=== PATIENT | male | born 1960 | race Caucasian/White ===

== ENCOUNTER 2020-01-20 06:41 | Outpatient (CLI) | payer BC, SELFPAY ==
--- NOTE | ~2020-01-20 | CT_ITS ---
EXAMINATION: CT abdomen pelvis w con DATE: 01/20/2020 07:26 INDICATION: Malignant colon neoplasm TECHNIQUE: Computed tomography (CT) of the abdomen and pelvis was performed with 100 cc Omnipaque 350 intravenous contrast. Automated exposure control and iterative reconstruction technique were employe d. Exam dose: 566.39 mGy-cm total exam DLP. COMPARISON: 02/25/2019 CT abdomen pelvis FINDINGS: The lung bases are clear. Normal heart size. No pericardial or pleural effusion. Small sliding hiatal hernia. No hepatic, splenic, pancreatic space-occupying mass lesion. There is a calcification of the pancreat ic head suggesting mild chronic pancreatitis. The gallbladder is present. No bile duct or pancreatic duct dilatation. Normal adrenal glands. 12 mm posterior lower pole right renal cyst. No renal mass lesion or any urinary tract calculus or hy droureteronephrosis. The urinary bladder is unremarkable. Normal appendix. Mild left colonic diverticulosis; no CT evidence of diverticulitis. No bowel obstruc tion or intraperitoneal free air. Prominent degenerative disease at L4-5. Included skeletal structures are otherwise unremarkable. IMPRESSION: Small hiatal hernia Mild diverticulosis of the colon Left renal 12 mm cyst Reviewed, dictated and finalized at [facility]. Reviewed, dictated and finalized at location A.
[2020-01-20 07:15] LABS: Estimated Glomerular Filt Rate > 60
== END 2020-01-20 06:42 | disposition home or self-care (01) ==
PROVIDERS: PCP Family Medicine Adolescent Medicine; Visit Provider Internal Medicine Hematology & Oncology
DX: C18.9 Malignant neoplasm of colon, unspecified (principal); K44.9 Diaphragmatic hernia without obstruction or gangrene; K57.90 Diverticulosis of intestine, part unspecified, without perforation or abscess without bleeding; N28.1 Cyst of kidney, acquired
CPT/HCPCS: 36415; 74177; Q9967

== ENCOUNTER 2020-01-20 08:09 | Outpatient (CLI) | payer BC, SELFPAY ==
[2020-01-20 08:31] LABS: Basophils Percent Auto 0.6 % (0.2-1.2); Eosinophils Absolute Auto 0.2 K/mm3 (0-0.3); Eosinophils Percent Auto 4.7 % (0-4.4); Hematocrit 45.8 % (42.0-52.0); Hemoglobin 15.3 g/dL (14.0-18.0); Immature Granulocyte Absolute 0.01 K/mm3 (0.00-0.031); Immature Granulocyte Percent A 0.2 % (0-0.5); Lymphocytes Absolute Auto 1.33 K/mm3 (0.9-3.2); Lymphocytes Percent Auto 26.1 % (18.3-44.2); Mean Corpuscular HGB Conc 33.4 g/dl (32-36); Mean Corpuscular Hemoglobin 30.3 pg (26-34); Mean Corpuscular Volume 90.7 fl (80-100); Mean Platelet Volume 9.1 fl (7.4-10.4); Monocytes Absolute Auto 0.6 K/mm3 (0.1-0.6); Monocytes Percent Auto 11.2 % (2.6-8.5); Neutrophils Absolute Auto 2.9 K/mm3 (1.3-6.7); Neutrophils Percent Auto 57.2 % (45.5-73.1); Platelet Count Result 167 k/mm3 (150-375); Red Blood Count 5.05 M/mm3 (4.6-6.20); Red Cell Distribution Width 12.2 % (11.5-14.5); White Blood Count 5.1 K/mm3 (4.5-10.0)
[2020-01-20 09:02] LABS: Alanine Aminotransferase 22 U/L (4-50); Albumin Level 4.3 g/dL (3.5-5.1); Alkaline Phosphatase 70 U/L (38-126); Aspartate Amino Transferase 26 U/L (17-59); Bilirubin,Total 0.6 mg/dL (0.2-1.3); Blood Urea Nitrogen 17 mg/dL (9-20); Calcium 9.1 mg/dL (8.4-10.2); Carbon Dioxide 27 mmol/L (22-30); Chloride 102 mmol/L (98-107); Estimated Glomerular Filt Rate > 60; Glucose 126 mg/dL (75-110); Potassium 4.6 mmol/L (3.4-5.0); Sodium 139 mmol/L (137-145)
[2020-01-20 09:31] LABS: Carcinoembryonic Antigen 3.3 ng/mL (0.0-3.0)
== END 2020-01-20 08:10 | disposition home or self-care (01) ==
LOC: ANHLAB 08:20
PROVIDERS: PCP Family Medicine Adolescent Medicine; Visit Provider Internal Medicine Hematology & Oncology
DX: C18.9 Malignant neoplasm of colon, unspecified (principal)
CPT/HCPCS: 36415; 80053; 82378; 85025

== ENCOUNTER 2020-07-26 13:48 | Outpatient (CLI) | payer BC, SELFPAY ==
[2020-07-26 14:11] LABS: Basophils Percent Auto 0.4 % (0.2-1.2); Eosinophils Absolute Auto 0.2 K/mm3 (0-0.3); Eosinophils Percent Auto 4.3 % (0-4.4); Hematocrit 42.8 % (42.0-52.0); Hemoglobin 14.6 g/dL (14.0-18.0); Immature Granulocyte Absolute 0.01 K/mm3 (0.00-0.031); Immature Granulocyte Percent A 0.2 % (0-0.5); Lymphocytes Percent Auto 28.7 % (18.3-44.2); Mean Corpuscular HGB Conc 34.1 g/dl (32-36); Mean Corpuscular Hemoglobin 30.4 pg (26-34); Mean Corpuscular Volume 89.2 fl (80-100); Mean Platelet Volume 9.1 fl (7.4-10.4); Monocytes Absolute Auto 0.5 K/mm3 (0.1-0.6); Monocytes Percent Auto 9.2 % (2.6-8.5); Neutrophils Absolute Auto 2.8 K/mm3 (1.3-6.7); Neutrophils Percent Auto 57.2 % (45.5-73.1); Platelet Count Result 180 k/mm3 (150-375); Red Cell Distribution Width 12.6 % (11.5-14.5); White Blood Count 4.9 K/mm3 (4.5-10.0)
[2020-07-26 16:38] LABS: Alanine Aminotransferase 21 U/L (4-50); Albumin Level 4.3 g/dL (3.5-5.1); Alkaline Phosphatase 64 U/L (38-126); Anion Gap 6 mmol/L (8-16); Aspartate Amino Transferase 30 U/L (17-59); Bilirubin,Total 0.6 mg/dL (0.2-1.3); Blood Urea Nitrogen 20 mg/dL (9-20); Calcium 9.4 mg/dL (8.4-10.2); Carbon Dioxide 30 mmol/L (22-30); Chloride 101 mmol/L (98-107); Estimated Glomerular Filt Rate > 60; Glucose 124 mg/dL (75-110); Potassium 3.9 mmol/L (3.4-5.0); Sodium 137 mmol/L (137-145)
[2020-07-26 17:08] LABS: Carcinoembryonic Antigen 3.6 ng/mL (0.0-3.0)
== END 2020-07-26 13:49 | disposition home or self-care (01) ==
PROVIDERS: PCP Family Medicine Adolescent Medicine; Visit Provider Internal Medicine Hematology & Oncology
DX: C18.9 Malignant neoplasm of colon, unspecified (principal)
CPT/HCPCS: 36415; 80053; 82378; 85025

== ENCOUNTER → 2021-01-13 01:17 | Outpatient (CLI) | payer BC, SELFPAY ==
[2021-01-13 19:47] LABS: SARS-CoV-2 RNA PCR Negative
== END ==
PROVIDERS: PCP Family Medicine Adolescent Medicine; Visit Provider Internal Medicine Cardiovascular Disease
DX: Z01.812 Encounter for preprocedural laboratory examination (principal); Z20.822 Contact with and (suspected) exposure to COVID-19
CPT/HCPCS: C9803; U0003; U0005

== ENCOUNTER 2021-01-17 02:11 | Day surgery (SDC) | payer BC, SELFPAY ==
[2021-01-16 13:18] VITALS: BMI 27.1
[2021-01-17 10:25] VITALS: BP 145/85; PULSE 59; RESP 22; TEMP 36.2; O2SAT 97
--- NOTE | 2021-01-17 11:01 | P.SEDATION_ITS ---
Moderate Sedation Note-Pt Data Patient Data Diagnosis: history of syncope which clinically is consistent with vasovagal events Present Complaint: patient desirous of explanting loop recorder which was implanted 4 years ago and now the battery has been depleted. Procedure to be performed/Plan: Removal of [employer] LINQ loop recorder Allergies Allergy/AdvReac Type Severity Reaction Status Date / Time No Known Allergies Allergy Unverified 10/21/18 14:56 Home Medications Medication Instructions Recorded Confirmed Type losartan 50 mg PO DAILY 01/16/21 01/16/21 History metformin 2,000 mg PO DAILY 01/16/21 01/16/21 History pravastatin 20 mg PO DAILY 01/16/21 01/16/21 History Current Medications: Active Medications Sodium Chloride (Normal Saline Iv) 500 mls @ 100 mls/hr IV CONT .Q5H [facility] Sedation/Anesthesia: No previous sedation/anesthesia problems (including family history). [facility] Family History Family History (Updated 05/14/17 @ 10:12 by DOCTOR UNKNOWN) Other Diabetes mellitus Family history of malignant neoplasm Hypertension Social History Social History Smoking status: Never smoker Alcohol intake: current Substance use: never Substance use type: does not use Living arrangements: with family Spiritual care concerns: No Mod Sed Physical Exam Physical Exam Pre Procedural Exam: Normal: Appearance, Throat, Airway, Lungs, Heart Size, Heart Rate, Heart Rhythm, Neuro Exam and Extremities Hours since solid foods: 12 Hours since liquid intake: 12 Internal Medicine - PN: Obj Da Vital Signs Vital Signs: Vital Signs - 24 hr 01/17/21 10:25 Temperature 36.2 C L Pulse Rate 59 L Respiratory Rate 22 H Blood Pressure 145/85 H Pulse Oximetry 97 Meds/Results Medications: Active Medications Generic Name Dose Route Start Last Admin Trade Name Freq PRN Reason Stop Dose Admin Sodium Chloride 500 mls @ 100 mls/hr 01/17/21 10:00 Normal Saline Iv IV CONT .Q5H [facility] ASA Classification/Sedation ASA Classification/Sedation ASA Class: II Emergent: No Risks: Risks, benefits and alternatives explained and patient/family accepted plan for sedation. Patient re-evaluated immediately prior to sedation.
--- NOTE | 2021-01-17 11:35 | P.PCNCC_ITS ---
Cardiac Cath Procedure Note Date of procedure:: 01/17/21 Performing physician:: Pino Alves MD Indication:: previously implanted Med[employer] LINQ loop recorder with battery depletion. Brief clinical history:: 60-year-old man with previous history of syncope LINQ loop recorder implanted in 2017 now with battery depletion and patient desiring device to be removed Procedure Procedure performed:: explantation of LINQ loop recorder Sedation/Medication given:: no sedation Access site:: previously implanted site in left anterior chest wall Estimated blood loss:: minimal Procedure note:: patient was brought to the cardiac catheterization lab in the postabsorptive state. The loop recorder was palpable subcutaneously medial to the left nipple. The area was then infiltrated with 1% lidocaine infiltrated locally. The medial aspect of the device was opened with a short 1 cm incision. The device was then freed from the surrounding fibrous capsule using a Metzenbaum scissors and the medial aspect of the device was then controlled with a hemostat. The device was then freed up from the remaining pocket using the scissors and easily removed from the pocket. Pocket was then irrigated with Ancef infused saline. After this the pocket was closed using 3 0 Vicryl interrupted sutures for the subcutaneous tissue and 4 0 Vicryl in a subcuticular fashion. The was dressed with a bio glue and a Band-Aid. Findings:: Successful uneventful explantation of previously implanted Medtro reynaldo LINQ loop recorder where the battery has now been exhausted. Conclusion:: As above Pino Alves MD [facility]
[2021-01-17 11:58] VITALS: BP 118/89; PULSE 61; RESP 18; TEMP 36.7; O2SAT 99
== END 2021-01-17 12:20 | disposition home or self-care (01) ==
PROVIDERS: PCP Family Medicine Adolescent Medicine; Visit Provider Specialist
PROC: (CPT 33286; principal; 2021-01-17 11:00)
DX: Z45.09 Encounter for adjustment and management of other cardiac device (principal); R55 Syncope and collapse
CPT/HCPCS: 33286; J0690; J2250; J3010; J7040

== ENCOUNTER 2021-01-24 08:27 | Outpatient (CLI) | payer BC, SELFPAY ==
--- NOTE | ~2021-01-24 | CT_ITS ---
EXAMINATION: CT abdomen pelvis w con EXAM DATE: 01/24/2021 08:57 INDICATION: Colon cancer follow-up. TECHNIQUE: Spiral CT of the abdomen and pelvis was performed following intravenous injection of 100 m L Omnipaque 350. Axial, coronal and sagittal images were reviewed. The dose-length product (DLP) fo r this examination was 582.20 mGy-cm. The exposure was tailored according to patient size (auto mA e xposure control), and iterative reconstruction (ASIR) was used as additional dose reduction technique . Comparison is made to prior examination from 01/20/2020. FINDINGS: Probable 8 mm right adrenal gland adenoma versus hyperplasia. The liver, spleen, adrenal g lands and pancreas are otherwise unremarkable. Gallbladder is unremarkable. No biliary obstruction. Portal and splenic veins are patent. Kidneys enhance symmetrically. There is no hydronephrosis. The prostate is unremarkable. Possible left-sided orchiectomy. The bladder is unremarkable. There is no retroperitoneal or pelvic lymphadenopathy. The appendix is normal. There is moderate sigmoid predominant colonic diverticulosis. There is no ad jacent inflammatory change to suggest diverticulitis. There is small sliding gastroesophageal hiatal hernia. There is expected amount of colonic stool. No free intraperitoneal gas. The heart is nor mal in size. There are no pericardial or pleural effusions. The lung bases are unremarkable. Moder ate disc disease L4-5. There are no osteoblastic or osteolytic lesions identified. IMPRESSION: 1. No evidence of metastatic disease. 2. Colonic diverticulosis. 3. Small hiatal hernia. Reviewed, dictated and finalized at location A.
[2021-01-24 08:51] LABS: Estimated Glomerular Filt Rate > 60
== END 2021-01-24 08:28 | disposition home or self-care (01) ==
PROVIDERS: PCP Family Medicine Adolescent Medicine; Visit Provider Internal Medicine Hematology & Oncology
DX: C18.9 Malignant neoplasm of colon, unspecified (principal); K57.30 Diverticulosis of large intestine without perforation or abscess without bleeding; K44.9 Diaphragmatic hernia without obstruction or gangrene
CPT/HCPCS: 74177; Q9967

== ENCOUNTER 2021-02-07 14:26 | Outpatient (CLI) | payer BC, SELFPAY ==
[2021-02-07 14:38] LABS: Basophils Percent Auto 0.4 % (0.2-1.2); Eosinophils Absolute Auto 0.2 K/mm3 (0-0.3); Eosinophils Percent Auto 4.6 % (0-4.4); Hematocrit 43.6 % (42.0-52.0); Hemoglobin 14.8 g/dL (14.0-18.0); Lymphocytes Absolute Auto 1.44 K/mm3 (0.9-3.2); Lymphocytes Percent Auto 31.6 % (18.3-44.2); Mean Corpuscular HGB Conc 33.9 g/dl (32-36); Mean Corpuscular Volume 88.4 fl (80-100); Mean Platelet Volume 9.2 fl (7.4-10.4); Monocytes Absolute Auto 0.5 K/mm3 (0.1-0.6); Monocytes Percent Auto 10.8 % (2.6-8.5); Neutrophils Absolute Auto 2.4 K/mm3 (1.3-6.7); Neutrophils Percent Auto 52.6 % (45.5-73.1); Platelet Count Result 185 k/mm3 (150-375); Red Blood Count 4.93 M/mm3 (4.6-6.20); Red Cell Distribution Width 12.2 % (11.5-14.5); White Blood Count 4.6 K/mm3 (4.5-10.0)
[2021-02-07 19:01] LABS: Alanine Aminotransferase 24 U/L (4-50); Albumin Level 4.4 g/dL (3.5-5.1); Alkaline Phosphatase 71 U/L (38-126); Anion Gap 7 mmol/L (8-16); Aspartate Amino Transferase 30 U/L (17-59); Bilirubin,Total 0.5 mg/dL (0.2-1.3); Blood Urea Nitrogen 19 mg/dL (9-20); Calcium 9.3 mg/dL (8.4-10.2); Carbon Dioxide 29 mmol/L (22-30); Chloride 103 mmol/L (98-107); Estimated Glomerular Filt Rate > 60; Glucose 128 mg/dL (75-110); Potassium 4.2 mmol/L (3.4-5.0); Sodium 139 mmol/L (137-145)
== END 2021-02-07 14:27 | disposition home or self-care (01) ==
LOC: ANHLAB 14:27
PROVIDERS: PCP Family Medicine Adolescent Medicine; Visit Provider Internal Medicine Hematology & Oncology
DX: C18.9 Malignant neoplasm of colon, unspecified (principal)
CPT/HCPCS: 36415; 80053; 82378; 85025

== ENCOUNTER 2021-11-15 15:02 | Outpatient (CLI) | payer BC, SELFPAY ==
[2021-11-15 15:30] LABS: Basophils Percent Auto 0.6 % (0.2-1.2); Eosinophils Absolute Auto 0.3 K/mm3 (0-0.3); Eosinophils Percent Auto 5.2 % (0-4.4); Hematocrit 48.1 % (42.0-52.0); Hemoglobin 16.1 g/dL (14.0-18.0); Lymphocytes Absolute Auto 1.53 K/mm3 (0.9-3.2); Lymphocytes Percent Auto 29.3 % (18.3-44.2); Mean Corpuscular HGB Conc 33.5 g/dl (32-36); Mean Corpuscular Hemoglobin 30.8 pg (26-34); Mean Platelet Volume 10.6 fl (7.4-10.4); Monocytes Absolute Auto 0.6 K/mm3 (0.1-0.6); Monocytes Percent Auto 10.9 % (2.6-8.5); Neutrophils Absolute Auto 2.8 K/mm3 (1.3-6.7); Red Blood Count 5.23 M/mm3 (4.6-6.20); Red Cell Distribution Width 12.5 % (11.5-14.5); White Blood Count 5.2 K/mm3 (4.5-10.0)
[2021-11-15 16:03] LABS: Alanine Aminotransferase 30 U/L (4-50); Albumin Level 4.7 g/dL (3.5-5.1); Alkaline Phosphatase 86 U/L (38-126); Anion Gap 12 mmol/L (8-16); Aspartate Amino Transferase 34 U/L (17-59); Bilirubin,Total 0.6 mg/dL (0.2-1.3); Blood Urea Nitrogen 17 mg/dL (9-20); Calcium 9.6 mg/dL (8.4-10.2); Carbon Dioxide 27 mmol/L (22-30); Chloride 100 mmol/L (98-107); Estimated Glomerular Filt Rate > 60; Glucose 122 mg/dL (65-110); Potassium 4.2 mmol/L (3.4-5.0); Sodium 139 mmol/L (137-145)
[2021-11-15 16:37] LABS: Carcinoembryonic Antigen 3.2 ng/mL (0.0-3.0)
[2021-11-20 21:11] LABS: HCG Tumor Marker <3 mIU/mL (<5)
[2021-11-22 17:47] LABS: Alpha Fetoprotein Tumor Marker 1.7 ng/mL (<6.1)
== END 2021-11-15 15:03 | disposition home or self-care (01) ==
PROVIDERS: PCP Family Medicine Adolescent Medicine; Visit Provider Internal Medicine Hematology & Oncology
DX: C18.9 Malignant neoplasm of colon, unspecified (principal); C62.90 Malignant neoplasm of unspecified testis, unspecified whether descended or undescended
CPT/HCPCS: 36415; 80053; 82105; 82378; 84702; 85025

== ENCOUNTER 2022-11-15 13:41 | Outpatient (CLI) | payer BC, SELFPAY ==
[2022-11-15 14:02] LABS: Basophils Percent Auto 0.2 % (0.2-1.2); Eosinophils Absolute Auto 0.2 K/mm3 (0-0.3); Eosinophils Percent Auto 2.9 % (0-4.4); Hematocrit 43.8 % (42.0-52.0); Hemoglobin 14.9 g/dL (14.0-18.0); Immature Granulocyte Absolute 0.02 K/mm3 (0.00-0.031); Immature Granulocyte Percent A 0.3 % (0-0.5); Lymphocytes Absolute Auto 1.44 K/mm3 (0.9-3.2); Mean Corpuscular Hemoglobin 30.8 pg (26-34); Mean Corpuscular Volume 90.7 fl (80-100); Mean Platelet Volume 9.2 fl (7.4-10.4); Monocytes Absolute Auto 0.7 K/mm3 (0.1-0.6); Monocytes Percent Auto 10.6 % (2.6-8.5); Neutrophils Absolute Auto 4.2 K/mm3 (1.3-6.7); Platelet Count Result 165 k/mm3 (150-375); Red Blood Count 4.83 M/mm3 (4.6-6.20); White Blood Count 6.5 K/mm3 (4.5-10.0)
[2022-11-15 16:10] LABS: Alanine Aminotransferase 31 U/L (6-50); Albumin Level 4.2 g/dL (3.5-5.1); Alkaline Phosphatase 76 U/L (38-126); Anion Gap 6 mmol/L (8-16); Aspartate Amino Transferase 24 U/L (17-59); Bilirubin,Total 0.5 mg/dL (0.2-1.3); Blood Urea Nitrogen 20 mg/dL (9-20); Calcium 8.9 mg/dL (8.4-10.2); Carbon Dioxide 31 mmol/L (22-30); Chloride 102 mmol/L (98-107); Estimated Glomerular Filt Rate > 60; Glucose 139 mg/dL (65-110); Potassium 4.2 mmol/L (3.4-5.0); Sodium 139 mmol/L (137-145)
[2022-11-15 16:40] LABS: Carcinoembryonic Antigen 3.3 ng/mL (0.0-3.0)
== END 2022-11-15 13:42 | disposition home or self-care (01) ==
LOC: ANHLAB 13:42
PROVIDERS: PCP Family Medicine Adolescent Medicine; Visit Provider Internal Medicine Hematology & Oncology
DX: C18.9 Malignant neoplasm of colon, unspecified (principal)
CPT/HCPCS: 36415; 80053; 82378; 85025

== ENCOUNTER 2023-11-12 11:00 | Outpatient (CLI) | payer BC, SELFPAY ==
[2023-11-12 11:22] LABS: Basophils Percent Auto 0.6 % (0.2-1.2); Eosinophils Absolute Auto 0.3 K/mm3 (0-0.3); Eosinophils Percent Auto 5.2 % (0-4.4); Hematocrit 44.7 % (42.0-52.0); Hemoglobin 15.1 g/dL (14.0-18.0); Immature Granulocyte Absolute 0.01 K/mm3 (0.00-0.031); Immature Granulocyte Percent A 0.2 % (0-0.5); Lymphocytes Absolute Auto 1.46 K/mm3 (0.9-3.2); Lymphocytes Percent Auto 29.3 % (18.3-44.2); Mean Corpuscular HGB Conc 33.8 g/dl (32-36); Mean Corpuscular Hemoglobin 30.5 pg (26-34); Mean Corpuscular Volume 90.3 fl (80-100); Mean Platelet Volume 8.8 fl (7.4-10.4); Monocytes Absolute Auto 0.5 K/mm3 (0.1-0.6); Neutrophils Absolute Auto 2.7 K/mm3 (1.3-6.7); Neutrophils Percent Auto 54.7 % (45.5-73.1); Platelet Count Result 176 k/mm3 (150-375); Red Blood Count 4.95 M/mm3 (4.6-6.20); Red Cell Distribution Width 12.3 % (11.5-14.5)
[2023-11-12 15:24] LABS: Alanine Aminotransferase 26 U/L (6-50); Albumin Level 4.2 g/dL (3.5-5.1); Alkaline Phosphatase 67 U/L (38-126); Anion Gap 8 mmol/L (8-16); Aspartate Amino Transferase 35 U/L (17-59); Bilirubin,Total 0.6 mg/dL (0.2-1.3); Blood Urea Nitrogen 22 mg/dL (9-20); Carbon Dioxide 28 mmol/L (22-30); Chloride 103 mmol/L (98-107); Estimated Glomerular Filt Rate > 60; Glucose 105 mg/dL (65-110); Potassium 4.5 mmol/L (3.4-5.0); Sodium 139 mmol/L (137-145)
[2023-11-12 15:55] LABS: Carcinoembryonic Antigen 3.7 ng/mL (0.0-3.0)
== END 2023-11-12 11:01 | disposition home or self-care (01) ==
PROVIDERS: PCP Family Medicine Adolescent Medicine; Visit Provider Internal Medicine Hematology & Oncology
DX: C18.9 Malignant neoplasm of colon, unspecified (principal)
CPT/HCPCS: 36415; 80053; 82378; 85025

== ENCOUNTER 2024-06-02 11:47 | Emergency (ER) | payer BC, SELFPAY ==
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
[2024-06-02 11:51] VITALS: BP 116/67; PULSE 64; RESP 16; TEMP 36.6; O2SAT 100
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
[2024-06-02] MEDS: TETANUS,DIPHTHERIA,AC PERTUSSIS ADULT (0.5 ML) BOOSTRIX IM (12:56)
--- NOTE | 2024-06-02 14:35 | PC.NURSE ---
EDP at bedside, reducing finger.
[2024-06-02 16:30] VITALS: BP 113/83; PULSE 74; RESP 19; O2SAT 97
== END 2024-06-02 16:31 | disposition home or self-care (01) ==
PROVIDERS: Emergency Provider Physician Assistant; PCP Family Medicine Adolescent Medicine
DX: S63.284A Dislocation of proximal interphalangeal joint of right ring finger, initial encounter (principal); S00.81XA Abrasion of other part of head, initial encounter; S62.626A Displaced fracture of middle phalanx of right little finger, initial encounter for closed fracture; Z23 Encounter for immunization; Z85.038 Personal history of other malignant neoplasm of large intestine; Z85.47 Personal history of malignant neoplasm of testis; Z90.49 Acquired absence of other specified parts of digestive tract; Z90.79 Acquired absence of other genital organ(s); M50.31 Other cervical disc degeneration, high cervical region; V18.0XXA Pedal cycle driver injured in noncollision transport accident in nontraffic accident, initial encounter; Y93.55 Activity, bike riding
CPT/HCPCS: 26770; 29130; 70450; 70486; 71046; 72125; 72170; 73130; 73200; 90471; 90715; 99285

== ENCOUNTER 2024-06-09 09:13 | Outpatient (CLI) | payer BC, SELFPAY ==
--- NOTE | ~2024-06-09 | XR_ITS ---
XR wrist RT min 3V Ordering provider: Mehreen Harris MD History: . S63.284A - Dislocation of proximal interphalangeal joint ... . Comparison: June 09, 2024 FINDINGS: BONES: No acute fracture or dislocation. No definite scaphoid fracture. JOINT SPACES: Normal. SOFT TISSUES: Normal. IMPRESSION: No acute osseous abnormality right wrist. Reviewed, dictated and finalized at location A.
--- NOTE | ~2024-06-09 | XR_ITS ---
XR hand RT min 3V Ordering provider: Mehreen Harris MD History: . re eval right 5th cmc dislocation,pain near the 5th carpal . Comparison: June 09, 2024 FINDINGS: BONES: No acute fracture or dislocation. JOINT SPACES: Normal. SOFT TISSUES: Normal. IMPRESSION: No acute osseous abnormality right hand. Reviewed, dictated and finalized at location A.
== END 2024-06-09 09:14 | disposition home or self-care (01) ==
PROVIDERS: PCP Family Medicine Adolescent Medicine; Visit Provider Plastic Surgery
DX: S63.284A Dislocation of proximal interphalangeal joint of right ring finger, initial encounter (principal); X58.XXXA Exposure to other specified factors, initial encounter
CPT/HCPCS: 73110; 73130

== ENCOUNTER 2024-06-10 01:56 | Day surgery (SDC) | payer BC, SELFPAY ==
[2024-06-09 14:28] VITALS: BMI 26.4
--- NOTE | 2024-06-09 14:29 | PC.NURSE ---
Report to the Outpatient Waiting Room, entrance under the green pavilion located off [facility], at time _1230_ on date _14-01-0638_. Planned Procedure Time: _230pm_. Time changes happen often and if your time is changed the preop area will call you the afternoon before. - You and your visitor will be asked to self-screen and do not enter if you have any COVID symptoms. - A mask is optional within the hospital at this time. May have clear liquids (water, carbonated beverages, clear teas, apple juice) until 630am with a maximum of 20 ounces. Nothing to drink after 630am. - No food from midnight until time of surgery Take the following medications with a SIP of water the morning of surgery: ____Pain pill if needed. DO NOT STOP ANY OF YOUR OTHER PRESCRIPTION MEDICATIONS PRIOR TO SURGERY ?EXCEPT THE FOLLOWING Medications to discontinue per physician ___None Date to take last dose Please no make-up, nail kyrgyz, hairspray, perfume, deodorant, or body powder the day of surgery. No jewelry (including any body piercings) or valuables the day of surgery, leave them at home. Please take a shower or bath the night before, or the morning of, surgery with an antibacterial soap. Wear comfortable, loose fitting clothing. - Jewelry must be removed prior to entering the operating room. Rings and piercings that are not removed may be cut off. - The hospital will not accept responsibility for valuables. - Please leave all valuables, including medications, at home the day of surgery. If you are going home after surgery, a licensed canal driver must drive you home. - NO public transportation without another adult if you receive anesthesia. - We recommend that an adult stay with you for 24 hours following discharge. - We also recommend that you do not drive, make important decision, drink alcoholic beverages, or take any drugs that were not prescribed by your health care provider for at least 24 hours after your discharge time. Follow any additional instructions given to you from your surgeon. If you or anyone in your household have experienced Covid symptoms in the past week, please notify your surgeon or the nurse liaison at the phone number below for possible testing. Telephone instructions given to __Ken___and asked if any additional questions and then verbalized understanding. Patient advised to call surgeon office or pre surgery nurse liaison [phone] if any additional questions.
--- NOTE | ~2024-06-10 | XR_ITS ---
EXAMINATION: XR surgery orthopedic DATE: 06/10/2024 13:53 INDICATION: ORIF right fifth metacarpal dislocation TECHNIQUE: 4 fluoroscopic images of the right hand were obtained during procedure performed by Dr. Ab castorena. Radiologist was not present for the imaging or procedure. The amount of fluoroscopy time us ed during this procedure was 0.5 minutes. COMPARISON: None. FINDINGS: Interval reduction of the previously dislocated right fifth carpometacarpal joint which is now in melida tomic alignment. Percutaneous pin fixation across the base of the fourth and fifth metacarpals. No in terval change in palmar distraction of a small volar plate avulsion fracture at the base of the fourt h middle phalanx. No new fractures identified. IMPRESSION: 1. Anatomic alignment post interval reduction and percutaneous pin fixation of the previously disloca tamie right fifth carpometacarpal joint. 2. Unchanged palmar distraction of a volar plate avulsion fracture at the base of the fourth middle p halanx. Reviewed, dictated and finalized at location A. IMPRESSION: 1. Anatomic alignment post interval reduction and percutaneous pin fixation of the previously dislocated right fifth carpometacarpal joint. 2. Unchanged palmar distraction of a volar plate avulsion fracture at the base of the fourth middle phalanx.
--- NOTE | 2024-06-10 07:06 | WPDHPUPDATE1 ---
History and Physical Update Update Date/Time: 06/10/24 07:06 Patient seen and examined in pre-operative holding area. No interval change in medical history or symptoms. Patient recalls previous discussion of benefits and alternatives to procedure. Continues to desire to proceed with right fifth carpometacarpal joint reduction possible pinning . Reviewed procedure, post-op expectations and risks including but not limited to bleeding, infection, injury to tendon/nerve/vessel, decreased hand function, stiffness, RSD, no change or worsening of symptoms malunion, nonunion, recurrence. I discussed the possible use of assistants and their participation in the case. Patient stated understanding and signed the consent form wishing to proceed.
--- NOTE | 2024-06-10 07:06 | W.PM.PROC2 ---
Procedure Note - Detailed Date of Procedure 06/10/24 Pre-op Diagnosis right 5th carpometacarpal dislocation Post-op Diagnosis Same Procedure Performed right 5th cmc reduction and pinning Surgeon Mehreen Harris MD Anesthesia MAC Description of Procedure INFORMED CONSENT: The patient was seen and examined and marked in the pre-op area.? The patient signed the consent form. PROCEDURE IN DETAIL:The patient taken back to OR on the stretcher in supine position. Time out performed with anesthesia, surgeon and staff agreeing on patient's name site and surgery to be performed SCDs were placed on the lower extremities and inflated. A tourniquet was placed on {right} upper extremity and antibiotics given IV After anesthesia administered sedation I injected {6}cc 1%lido with epi and 0.5% marcaine plain at the operative site The?{right upper extremity}?was prepped and draped in sterile fashion the??{right upper extremity} was? exsanguinated with Esmarch bandage and tourniquet inflated to 250mmHg The mini c-arm was draped and brought into the field. The dislocation was identified and closed reduction maneuvers were able to achieve reduction of the fifth cmc joint but this was notably unstable. I proceeded with placing two 0.045 k-wires into the 5th metacarpal base anchoring into the fourth metacarpal base. Live fluoro and multiple views verified k-wire placement and stability of the reduction. The pins were trimmed and covered with betadine soaked alcohol swab A dressing of 4x4s, brianna, and an ulnar gutter splint was applied for patient safety, security, and comfort and secured with an reid bandage after the tourniquet was let down noting the hand was warm and well perfused. The patient was then awaken from anesthesia and transferred to the recovery room in stable condition.? Complications - none EBL- 0cc Disposition - home in stable conditions [facility] Billing Surgery - Charge Forward: Surgery Billing ([id number])
[2024-06-10 12:45] VITALS: BP 148/89; PULSE 56; RESP 18; TEMP 36.8; O2SAT 99
[2024-06-10 13:00] LABS: Glucose Point of Care 104 mg/dl (65-105)
[2024-06-10] MEDS: LACTATED RINGERS 1,000 ML 30 ML IV CONT (13:00)
--- NOTE | 2024-06-10 13:11 | WPDANESEPPF ---
Anes - Initial Pre Proc Eval Procedure: Operation Date: 06/10/24 14:30 Proposed Procedures p Right Fifth Carpometacarpal Reduction, Possible Pinning - Mehreen Harris MD Date/Time: 06/10/24 13:11 Surgeon: Mehreen Harris MD Pre Op Diagnosis: fx right 5th carpometacarpal Patient Data Age: 63 Gender: M Height: 1.83 m Weight: 88.4 kg Last Vital Signs Temp 98.3 F 06/10/24 12:45 Pulse 56 L 06/10/24 12:45 Resp 18 06/10/24 12:45 BP 148/89 H 06/10/24 12:45 Pulse Ox 99 06/10/24 12:45 O2 Del Method Room Air 06/10/24 12:45 Allergies Allergy/AdvReac Type Severity Reaction Status Date / Time lisinopril AdvReac Intermediate Cough Verified 06/10/24 12:45 codeine AdvReac Mild Light-heade Verified 06/10/24 12:45 d Home Medications Medication Instructions Recorded Confirmed Type bhcyuwia-mne-awmab 120 mcg-lutein 1 tablet PO DAILY 02/05/22 06/10/24 History 150 mcg-herb 50 mg chewable tablet (Alive Men's 50 Plus Multivitamin) trazodone 100 mg tablet 100 mg PO QHS #90 tabs 07/06/23 06/10/24 Rx losartan 50 mg tablet See Rx Instructions .Route 12/29/23 06/10/24 Rx .COMPLEX #90 tabs pravastatin 20 mg tablet See Rx Instructions .Route 12/29/23 06/10/24 Rx .COMPLEX #90 tabs blood sugar diagnostic (OneTouch #100 strips 05/05/24 06/10/24 Rx Ultra Test strips) ipratropium bromide 42 mcg (0.06 2 spray intranasal TID #15 mL 05/05/24 06/10/24 Rx %) nasal spray lancets 30 gauge #100 ea 05/10/24 06/10/24 Rx glimepiride 1 mg tablet 1 mg PO QAM #90 tabs 05/27/24 06/10/24 Rx metformin 500 mg tablet,extended See Rx Instructions .Route 05/29/24 06/10/24 Rx release 24 hr .COMPLEX #360 tabs hydrocodone 5 mg-acetaminophen 325 1 tablet PO Q6H PRN pain #20 tabs 06/02/24 06/10/24 Rx mg tablet cephalexin 500 mg capsule 500 mg PO Q8H #21 caps 06/10/24 Rx Laboratory Tests 06/10/24 12:57 POC Capillary Glucose 104 mg/dl (65-105) Patient hx anesthesia problems: none Family hx anesthesia problems: none Results Review: All pre-operative results and documents have been reviewed as part of the pre-operative evaluation. PENDING SALE TO [facility] Past Medical History Medical History History of colon cancer 2017 History of testicular cancer (~2014) Normal colonoscopy 05/30 Repeat 06/04 Surgical History Surgical History History of left hemicolectomy 2017 History of unilateral orchiectomy 2015 Left Family History Family History Mother High cholesterol Other Diabetes mellitus Family history of malignant neoplasm Hypertension Social History Social History (Updated 05/21/23 @ 07:48 by Kita Rondon [facility]) Smoking status: Never smoker Second hand tobacco smoke exposure: No Alcohol intake: current Alcohol use details: Socially Substance use: never Substance use type: does not use Lack of Transportation: No Lack of Food: Never True Current Housing: I Have Housing Concerned About Future Housing: No Difficulty Paying Gas/Electric Bills: No Difficulty Paying for Meds: No Currently Unemployed: No Education: Master's Degree or Higher Difficulty w/ Childcare or Family Care: No Living arrangements: with family Occupation/Education: occupation Gender identity (if verbalized by the patient): Male Spiritual care concerns: No Agree to blood products: Yes Anes - Eval Final PreProcedure Day of Procedure 06/10/24 13:11 Patient weight: normal Heart: regular rate and rhythm Lungs: clear to auscultation Neurological: alert and oriented Last oral intake: >/= 8 hours ASA classification: III Emergent: no Anesthetic plan: proceed Anesthesia type and monitoring: general GIVS and LMA and standard monitoring Results Review: All pre-operative results and documents have
[2024-06-10] MEDS: ceFAZolin 2 GM/D5W 50 ML 2 GM/50 ML BAG IVPB (13:19)
[2024-06-10] MEDS: LIDOCAINE HCL 1% LOCAL INJ 20 ML VIAL 10 ML INFILTRATE (13:36)
[2024-06-10] MEDS: BUPivacaine HCL 0.5% 10 ML AMP INFILTRATE (13:38)
[2024-06-10 13:54] VITALS: BP 122/75; PULSE 54; RESP 14; O2SAT 100
[2024-06-10 14:20] VITALS: BP 139/72; PULSE 48; O2SAT 100
[2024-06-10 14:50] VITALS: BP 140/86; PULSE 45
[2024-06-10] MEDS: IBUPROFEN 600 MG TABLET PO (14:56)
[2024-06-10 15:15] VITALS: BP 150/80; PULSE 45
== END 2024-06-10 15:21 | disposition home or self-care (01) ==
PROVIDERS: PCP Family Medicine Adolescent Medicine; Visit Provider Plastic Surgery
PROC: (CPT 26676; principal; 2024-06-10 14:30)
DX: S63.286A Dislocation of proximal interphalangeal joint of right little finger, initial encounter (principal); V18.0XXA Pedal cycle driver injured in noncollision transport accident in nontraffic accident, initial encounter; Z79.84 Long term (current) use of oral hypoglycemic drugs; Z79.891 Long term (current) use of opiate analgesic; Z98.890 Other specified postprocedural states; Z90.49 Acquired absence of other specified parts of digestive tract; Z85.47 Personal history of malignant neoplasm of testis; Z85.038 Personal history of other malignant neoplasm of large intestine; Z80.9 Family history of malignant neoplasm, unspecified
CPT/HCPCS: 26676; 82948; 99199; A9270; C1713; J0690; J2250; J2405; J2704; J3010; J7120

== ENCOUNTER 2024-06-21 15:40 | Outpatient (CLI) | payer BC, SELFPAY ==
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
== END 2024-06-21 15:41 | disposition home or self-care (01) ==
LOC: ANHIMG 15:45
PROVIDERS: PCP Family Medicine Adolescent Medicine; Visit Provider Physician Assistant Surgical
DX: S69.91XA Unspecified injury of right wrist, hand and finger(s), initial encounter (principal); X58.XXXA Exposure to other specified factors, initial encounter
CPT/HCPCS: 73130

== ENCOUNTER 2024-07-05 15:29 | Outpatient (CLI) | payer BC, SELFPAY ==
--- NOTE | ~2024-07-05 | XR_ITS ---
EXAMINATION: XR hand RT min 3V DATE: 07/05/2024 15:50 INDICATION: Unspecified injury of right hand and wrist. TECHNIQUE: 3 views of right hand were obtained. COMPARISON: Right hand radiographs 06/21/2024, 06/09/2024, 06/02/2024 FINDINGS: Alignment is normal. No acute fracture. There is fixation of the bases of the fourth and fi fth metacarpals with 2 percutaneous pins. There is mild osteoarthritis of first and third metacarpoph alangeal joints and first interphalangeal joint. IMPRESSION: 1. Percutaneous pin fixation of the fourth and fifth metacarpals. Reviewed, dictated and finalized at location A.
== END 2024-07-05 15:30 | disposition home or self-care (01) ==
LOC: ANHIMG 15:30
PROVIDERS: PCP Family Medicine Adolescent Medicine; Visit Provider Physician Assistant Surgical
DX: S69.91XA Unspecified injury of right wrist, hand and finger(s), initial encounter (principal); X58.XXXA Exposure to other specified factors, initial encounter
CPT/HCPCS: 73130

== ENCOUNTER 2024-07-19 08:02 | Outpatient (CLI) | payer BC, SELFPAY ==
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
== END 2024-07-19 08:03 | disposition home or self-care (01) ==
PROVIDERS: PCP Family Medicine Adolescent Medicine; Visit Provider Physician Assistant Surgical
DX: S63.284A Dislocation of proximal interphalangeal joint of right ring finger, initial encounter (principal); X58.XXXA Exposure to other specified factors, initial encounter
CPT/HCPCS: 73130

== ENCOUNTER 2024-11-16 11:05 | Outpatient (CLI) | payer BC, SELFPAY ==
[2024-11-16 11:25] LABS: Basophils Percent Auto 0.3 % (0.2-1.2); Eosinophils Absolute Auto 0.3 K/mm3 (0-0.3); Eosinophils Percent Auto 4.7 % (0-4.4); Hematocrit 46.6 % (42.0-52.0); Hemoglobin 15.8 g/dL (14.0-18.0); Immature Granulocyte Absolute 0.01 K/mm3 (0.00-0.031); Immature Granulocyte Percent A 0.2 % (0-0.5); Lymphocytes Absolute Auto 1.83 K/mm3 (0.9-3.2); Mean Corpuscular HGB Conc 33.9 g/dl (32-36); Mean Corpuscular Hemoglobin 30.4 pg (26-34); Mean Corpuscular Volume 89.6 fl (80-100); Mean Platelet Volume 8.9 fl (7.4-10.4); Monocytes Absolute Auto 0.6 K/mm3 (0.1-0.6); Monocytes Percent Auto 9.6 % (2.6-8.5); Neutrophils Percent Auto 53.2 % (45.5-73.1); Platelet Count Result 179 k/mm3 (150-375); White Blood Count 5.7 K/mm3 (4.5-10.0)
[2024-11-16 13:20] LABS: Alanine Aminotransferase 22 U/L (6-50); Albumin Level 4.5 g/dL (3.5-5.1); Alkaline Phosphatase 72 U/L (38-126); Anion Gap 7 mmol/L (4-12); Aspartate Amino Transferase 29 U/L (17-59); Bilirubin,Total 0.9 mg/dL (0.2-1.3); Blood Urea Nitrogen 22 mg/dL (9-20); Calcium 9.4 mg/dL (8.4-10.2); Carbon Dioxide 29 mmol/L (22-30); Chloride 105 mmol/L (98-107); Estimated Glomerular Filt Rate > 60; Glucose 125 mg/dL (65-110); Potassium 4.5 mmol/L (3.4-5.0); Sodium 141 mmol/L (137-145)
[2024-11-16 13:50] LABS: Carcinoembryonic Antigen 3.9 ng/mL (0.0-3.0)
--- OUTSIDE RECORDS SUMMARY | 2024-11-23 10:32 | XMS_ITS | Clinical Summary ---
Author Organization [facility] Address [address] [place] [address]. [place], [place] [id number] [place] [id number] Care Team Providers Care Tree Climber Name Role Phone Avinash Berg MD Primary Care Provider [phone] Allergies No known active allergies Medications losartan 50 MG tablet Take 50 mg by mouth daily. Active pravastatin 20 MG tablet Take 20 mg by mouth nightly at bedtime. Active metFORMIN 1000 MG tablet Take 500 mg by mouth 4 (four) times a day. Active multivitamin tablet Take 1 tablet by mouth. Active ONETOUCH ULTRA test strip 04/16/2021 Active Immunizations Name Administration Dates Next Due PFIZER COVID-19 (ORIGINAL FO RMULATION, PURPLE CAP) mRNA, LNP-S, PF, 30 MCG/0.3 ML DOSE 02/09/2021,01/19/2021 Family History Medical History Relation Comments None Father Relation Status Comments Father Mother Alive Social History Tobacco Use Types Packs/Day Years Used Date Smoking Tobacco: Never Smokeless Tobacco: Never Alcohol Use Standard Drinks/Week Comments Yes 3.3 (1 standard drink = 0.6 oz p ure alcohol) Sex and Gender Information Value Date Recorded Sex Assigned at Not on file Legal Sex Male 12:36 PM [employer] Gender Identity Not on file Sexual Orientation Not on file Last Filed Vital Signs Vital Sign Reading Time Taken Comments Blood Pressure 131/87 05/24/2021 8:44 AM CDT Pulse 67 05/24/2021 8:44 AM CDT Temperature 36.5 ??C (97.7 ??F) 05/24/2021 8:34 AM CD T Respiratory Rate 18 05/24/2021 8:44 AM CDT Oxygen Saturation 95% 05/24/2021 8:44 AM CDT Inhaled Oxygen Concentration - - Weight 88.5 kg (195 lb) 05/16/2021 10:19 AM CDT Height 182.9 cm (6') 05/16/2021 10:19 AM CDT Body Mass Index 26.45 05/16/2021 10:19 AM CDT Plan of Treatment Health Maintenance Due Date Last Done Comments Annual Physical 1963 Hepatitis C 1978 DTaP, Tdap and Td Vaccines ( 1 - Tdap) 1979 Zoster Vaccines (1 of 2) 2010 COVID-19 Vaccine (2023-2 5 season) 2024 02/09/2021, 01/19/2021 Influenza Adult (#1) 2024 Colorectal Cancer Screening Colonoscopy (10 Years) 05/24/2031 05/24/2021, 05/24/2021 RSV Immunization or 60+ Years (1 - 1-dose 75+ series) 2035 Meningococcal Vaccine Aged Out No josse nagi eligible based on patient's age to complete this topic Pneumococcal Vaccine: Pediatrics (0 to 5 Years) and At-Risk Patients (6 to 64 Years) Aged Out No longer eligible b ased on patient's age to complete this topic RSV Immunizations Under 20 Months Aged Out No longer eligible b ased on patient's age to complete this topic Procedures Procedure Name Priority Date/Time Associated Diagnosis Comments COLONOSCOPY Routine 05/24/2021 8:08 AM CDT from Last 3 Months or Most Recently Relevant to Health Maintenance Results * Colonoscopy (05/24/2021 8:08 AM CDT) Narrative Krish Bravo MD - 05/24/2021 8:08 AM CDT Krish Bravo MD ? 05/24/2021 ??8:35 AM KRISH BRAVO MD, FACG, FACP COLONOSCOPY 05/24/2021 This is a ??60-year-old male with history of T2DM, HTN, HLD who now presents for colonoscopy for personal history of colon cancer. ?? GI review of systems is negative. No endocarditis risk factors. No Known Allergies Medications: see list. Family history: negative for colon cancer. VITALS: Stable. LUNGS: Clear. HEART: RRR. S1/S2 normal. ABDOMEN: NABS/NT. The procedure of colonoscopy, ??its indications, ??alternatives of barium studies and risks including perforation, bleeding, infection, reaction to medication as well as the possible need for blood or surgery were discussed with the patient prior to the procedure. The patient voices understanding, agrees to proceed and provides informed consent. COLONOSCOPY INDICATION: Personal history of colon cancer. ?? POST-OP: Normal post-surgical colonoscopy. SEDATION: Per Anesthesia PREP: Good. With the patient in the left lateral decubitus position, the Olympus [id number] ??colonoscope was introduced into the rectum and advanced easily to the Terminal Ileum. Careful inspection of the mucosa was made upon insertion and withdrawal of the endoscope. FINDINGS: Terminal ileum: distal 5 cm normal. Cecum, Ascending colon, Transverse colon, Descending colon, Sigmoid colon and Rectum including retroflexion normal. Anastomosis @ 20 cm. No masses, polyps, AVMs, colitis ??or diverticulosis ??seen. No complications, blood loss or implants. ASSESSMENT AND PLAN: Personal history of colon cancer: - Diagnosed ; s/p left casie-colectomy and chemo - Colonoscopy 05-19-2018 negative - Colonoscopy 05-24-2021 unremarkable - I will place in our recall for repeat colonoscopy in five years Thank you for allowing me to care for your patient. He will follow-up with Dr. Berg and Dr. Gibbons as needed. Krish Bravo M.D. Cc: Dr. Brandon Gutierrez; Dr. Gibbons Krish Bravo MD GI PROCEDURE ORDERABLES Fin al Result from Last 3 Months or Most Recently Relevant to Health Maintenance [place] [address] [place] [address] Care Teams Tree Climber Relationship Specialty Start Date End Date Avinash Berg MD [phone] [id number] PCP - General FAMILY PRACTICE 05/18/21
--- OUTSIDE RECORDS SUMMARY | 2024-11-23 10:32 | XMS_ITS | Encounter Summary ---
Author Organization [facility] Address [address] [place] [address]. [place], [place] [address] [place] [address] Care Team Providers Care Bull Riveter Name Role Phone Karlee Berg MD Primary Care Provider [phone]- [phone] Reason for Visit * Auth/Cert Specialty Diagnoses / Procedures Referred By Contac t Referred To Contact Diagnoses HISTORY OF COLON CANCER Procedures COLONOSCOPY Referral ID Status Reason Start Date Expiration Date Visits Re quested Visits Authorized [id number] 1 1 Encounter Details Date Type Department Care Team (Latest Contact Info) Description 05/24/2021 6:15 AM CDT - 05/24/2021 9:09 AM T Hospital Encounter [facility] [place] [address] Krish Bravo MD [address] [address] Discharge Disposition: Home or Self Care (Routine Discharge) Social History Tobacco Use Types Packs/Day Years Used Date Smoking Tobacco: Never Smokeless Tobacco: Never Alcohol Use Standard Drinks/Week Comments Yes 3.3 (1 standard drink = 0.6 oz p ure alcohol) Sex and Gender Information Value Date Recorded Sex Assigned at Not on file 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 No / Unsure 05/24/2021 6:15 AM CDT documented as of this encounter Last Filed Vital Signs Vital Sign Reading [...] Mass Index 26.45 05/16/2021 10:19 AM CDT documented in this encounter Discharge Instructions * Discharge Instructions* Krish Bravo MD - 05/24/2021 8:32 AM CDT Normal colonoscopy Repeat colonoscopy 5 years * Attachments The following attachments cannot be sent through Care Everywhere. * Colonoscopy Discharge Instructions ([place]) * General Anesthesia Discharge Instructions ([place]) documented in this encounter Medications at Time of Discharge losartan 50 MG tablet Take 50 mg by mouth daily. metFORMIN 1000 MG tablet Take 500 mg by mouth 4 (four) times a day. multivitamin tablet Take 1 tablet by mouth. ONETOUCH ULTRA test strip 04/16/2021 pravastatin 20 MG tablet Take 20 mg by mouth nightly at bedtime. documented as of this encounter H&P Notes * Krish Bravo MD - 05/24/2021 8:04 AM CDT Krish Bravo MD, FACG, FACP Attending Provider: Krish Bravo MD PCP: KARLEE BERG MD PATIENT: David Pan : 1960 Date of Visit: 05/24/2021 HPI: David Pan is an 60-year-old male who presents for personal history of colon cancer 2017. CV-19 vaccinated. There is no problem list on file for this patient. Past Medical History: Diagnosis Date ??? Cancer (CMS/HCC) colon cancer/testicular cancer ??? Diabetes mellitus (CMS/HCC) ??? HLD (hyperlipidemia) ??? Hypertension Past Surgical History: Procedure Laterality Date ??? COLON SURGERY resection Family History Problem Relation Name Age of Onset ??? None Father Social History Socioeconomic History ??? Marital status: Spouse name: Not on file ??? Number of children: Not on file ??? Years of education: Not on file ??? Highest education level: Not on file Occupational History ??? Not on file Tobacco Use ??? Smoking status: Never Smoker ??? Smokeless tobacco: Never Used Substance and Sexual Activity ??? Alcohol use: Yes Alcohol/week: 3.3 standard drinks Types: 2 Cans of beer per week ??? Drug use: Never ??? Sexual activity: Not on file Other Topics Concern ??? Not on file Social History Narrative ??? Not on file Social Determinants of Health Financial Resource Strain: ??? Difficulty of Paying Living Expenses: Food Insecurity: ??? Worried About Running Out of Food in the Last Year: ??? Ran Out of Food in the Last Year: Transportation Needs: ??? Lack of Transportation (Medical): ??? Lack of Transportation (Non-Medical): Physical Activity: ??? Days of Exercise per Week: ??? Minutes of Exercise per Session: Stress: ??? Feeling of Stress : Social Connections: ??? Frequency of Communication with Friends and Family: ??? Frequency of Social Gatherings with Friends and Family: ??? Attends Zoroastrianism Services: ??? Active Member of Clubs or Organizations: ??? Attends Club or Organization Meetings: ??? Marital Status: Intimate Partner Violence: ??? Fear of Current or Ex-Partner: ??? Emotionally Abused: ??? Physically Abused: ??? Sexually Abused: Current Facility-Administered Medications: ??? lactated ringers infusion, , Intravenous, Continuous, Sterling Dodie Mcclellan MD No Known Allergies Travel Exposure: No current facility-administered medications on file prior to encounter. Current Outpatient Medications on File Prior to Encounter Medication Sig ??? losartan 50 MG tablet Take 50 mg by mouth daily. ??? metFORMIN 1000 MG tablet Take 500 mg by mouth 4 (four) times a day. ??? pravastatin 20 MG tablet Take 20 mg by mouth nightly at bedtime. ??? multivitamin tablet Take 1 tablet by mouth. ??? ONETOUCH ULTRA test strip Blood pressure 137/87, pulse 56, temperature 98.2 ??F (36.8 ??C), temperature source Temporal, resp. rate 19, height 6' (1.829 m), weight 88.5 kg (195 lb), SpO2 99 %. Physical Exam Constitutional: he appears well-developed and well-nourished. Cardiovascular: Normal rate. Pulmonary/Chest: Breath sounds normal. Abdominal: Soft, non-tender. he exhibits no edema. Assessment & Plan: Colonoscopy Krish Bravo 05/24/2021 documented in this encounter Procedure Notes * Krish Bravo MD - 05/24/2021 8:08 AM CDTAssociated Order(s): COLONOSCOPY; SALINE LOCK IV Procedure(s): COLONOSCOPY KRISH BRAVO MD, FACG, FACP COLONOSCOPY 05/24/2021 This is a 60-year-old male with history of T2DM, HTN, HLD who now presents for colonoscopy for personal history of colon cancer. GI review of systems is negative. No endocarditis risk factors. No Known Allergies Medications: see list. Family history: negative for colon cancer. VITALS: Stable. LUNGS: Clear. HEART: RRR. S1/S2 normal. ABDOMEN: NABS/NT. The procedure of colonoscopy, its indications, alternatives of barium studies and risks including perforation, bleeding, infection, reaction to medication as well as the possible need for blood or surgery were discussed with the patient prior to the procedure. The patient voices understanding, agrees to proceed and provides informed consent. COLONOSCOPY INDICATION: Personal history of colon cancer. POST-OP: Normal post-surgical colonoscopy. SEDATION: Per Anesthesia PREP: Good. With the patient in the left lateral decubitus position, the Olympus [id number] colonoscope was introduced into the rectum and advanced easily to the Terminal Ileum. Careful inspection of the mucosa was made upon insertion and withdrawal of the endoscope. FINDINGS: Terminal ileum: distal 5 cm normal. Cecum, Ascending colon, Transverse colon, Descending colon, Sigmoid colon and Rectum including retroflexion normal. Anastomosis @ 20 cm. No masses, polyps, AVMs, colitis or diverticulosis seen. No complications, blood loss or implants. ASSESSMENT [...] M.D. Cc: Dr. Brandon Gutierrez; Dr. Gibbons documented in this encounter Nursing Notes * Maylin Gurrola RN - 05/16/2021 10:25 AM CDT Pt. Agreed to attempt emailing [email or web address] Vaccine card and will also bring. documented in this encounter Plan of Treatment Not on file documented as of this encounter Procedures Procedure Name Priority Date/Time Associated Diagnosis Comments COLONOSCOPY Routine 05/24/2021 8:08 AM CDT COLONOSCOPY 05/24/2021 8:04 AM CDT HISTORY OF COLON CANCER PROCEDURE GENERIC 05/24/2021 7:2 9 AM CDT POCT GLUCOSE - VICTOR DOCKED DEVICE Routine 05/24/2021 7:15 AM CDT documented in this encounter Results * Colonoscopy (05/24/2021 8:08 AM CDT) [...] the left lateral decubitus position, the Olympus [id number] ??colonoscope was introduced into the rectum and [...] M.D. Cc: Dr. Brandon Gutierrez; Dr. Gibbons us Krish Bravo MD GI PROCEDURE ORDERABLES Fin al Result * PROCEDURE GENERIC (05/24/2021 7:29 AM CDT) Narrative 05/24/2021 7:29 AM CDT Ordered by an unspecified provider. us Documents Scanned [facility] Final Result * (ABNORMAL) POCT glucose (05/24/2021 7:15 AM CDT) GLUCOSE POC 116(H) 70 - 99 mg/dL 05/24/2021 7:[address] [facility] 05/24/2021 7:15 AM CDT us Krish Bravo MD POCT ORDERABLES - DEVICE Fi nal Result [facility] [address] [place] [address], [place] [phone] documented in this encounter Visit Diagnoses Not on filedocumented in this encounter Administered Medications Inactive Administered Medications - up to 3 most recent administrations Medication Order MAR Action Action Date Dose Rate Site acetaminophen (TYLENOL) tablet 650 mg 650 mg, Oral, Once as needed, Mild pain (Scale 1 - 3), 1 dose, Starting on Sangeetha 05/24/21 at 0849, Until Sangeetha 05/24/21 at 1110, Maximum dose of acetaminophen is 4000 mg from all sources in 24 hours., PACU lactated ringers infusion at 10 mL/hr, Intravenous, Continuous, Starting on Sangeetha 05/24/21 at 0730, Until Sangeetha 05/24/21 at 1110, Infuse at TKO rate, Pre-Op New Bag 05/24/2021 8:00 AM CDT ondansetron (ZOFRAN) injection 4 mg 4 mg, Intravenous, Once as needed, Nausea, Vomiting, 1 dose, Starting on Sangeetha 05/24/21 at 0849, Until Sangeetha 05/24/21 at 1110, Administer slowly over 3-4 minutes. If more than one antiemetic is ordered, use in this order: ondansetron, diphenhydramine, metoclopramide, haloperidol, promethazine. If nausea / vomiting still not controlled, move to next ordered medication., PACU documented in this encounter Active and Recently Administered Medications Times are shown in CDT. Continuous Medication Order 05/22/2021 05/23/2021 05/24/2021 lactated ringers infusion at 10 mL/hr, Intravenous, Continuous, Starting on Sangeetha 05/24/21 at 0730, Until Sangeetha 05/24/21 at 1110, Infuse at TKO rate, Pre-Op 0800 (New Bag - Prov ider: Shantal Corral CRNA)0831 (Anesthesia Volume Adjustment - Provider: Shantal Corral CRNA) PRN Medication Order 05/22/2021 05/23/2021 05/24/2021 acetaminophen (TYLENOL) tablet 650 mg 650 mg, Oral, Once as needed, Mild pain (Scale 1 - 3), 1 dose, Starting on Sangeetha 05/24/21 at 0849, Until Sangeetha 05/24/21 at 1110, Maximum dose of acetaminophen is 4000 mg from all sources in 24 hours., PACU ondansetron (ZOFRAN) injection 4 mg 4 mg, Intravenous, Once as needed, Nausea, Vomiting, 1 dose, Starting on Sangeetha 05/24/21 at 0849, Until Sangeetha 05/24/21 at 1110, Administer slowly over 3-4 minutes. If more than one antiemetic is ordered, use in this order: ondansetron, diphenhydramine, metoclopramide, haloperidol, promethazine. If nausea / vomiting still not controlled, move to next ordered medication., PACU documented in this encounter Care Teams Bull Riveter Relationship Specialty Start Date End Date Karlee Berg MD [address] [address] PCP - General FAMILY PRACTICE 05/18/21 documented as of this encounter
--- OUTSIDE RECORDS SUMMARY | 2024-11-23 10:32 | XMS_ITS | Encounter Summary ---
Author Organization [facility] Address [address] [place] [address]. 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 No / Unsure 05/24/2021 6:15 AM CDT documented as of this encounter Plan of Treatment Not on file documented as of this encounter Visit Diagnoses Not on filedocumented in this encounter Care Teams Roofer Vinyl Coating Relationship Specialty Start Date End Date Avinash Berg MD [address] [place] [address] PCP - General FAMILY PRACTICE 05/18/21 documented as of this encounter
--- OUTSIDE RECORDS SUMMARY | 2024-11-23 10:32 | XMS_ITS | Encounter Summary ---
Author Organization [facility] Address [address] [place] [address]. [place], [place] [address] [place] [address] Care Team Providers Care Brewery Pumper Name Role Phone Karlee Berg MD Primary Care Provider +1- [phone] Reason for Visit * Auth/Cert Specialty Diagnoses / Procedures Referred By Contac t Referred To Contact Diagnoses HISTORY OF COLON CANCER Procedures COLONOSCOPY Referral ID Status Reason Start Date Expiration Date Visits Re quested Visits Authorized [id number] 1 1 Encounter Details Date Type Department Care Team (Late st Contact Info) Description 05/24/2021 7:30 AM CDT - 05/24/2021 8:00 AM CDT Surgery [facility] [place] [address] Krish Chaudhari MD [address] [address] COLONOSCOPY Surgery Details Date/Time Status Location OR Service Patient Class Case Class Case Type Trauma Case? 05/24/2021 7:30 AM Posted [facility] 3 [facility] - [facility]ive No Panel 1 Procedure LRB Anes Op Region Wound Class Comments COLONOSCOPY N/A General Clean Contaminated post-op: normal Surgeon Surgeon Role Service Panel Krish Chaudhari MD Primary Gastroenterology 1 documented in this encounter Social History Tobacco Use Types Packs/Day Years Used Date Smoking Tobacco: Never Smokeless Tobacco: Never Alcohol Use Standard Drinks/Week Comments Yes 3.3 (1 standard drink = 0.6 oz p ure alcohol) Sex and Gender Information Value Date Recorded Sex Assigned at Not on file Legal Sex 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 No / Unsure 05/24/2021 6:15 AM CDT documented as of this encounter Last Filed Vital Signs Vital Sign Reading Time Taken Comments Blood Pressure 137/87 05/24/2021 6:54 AM CDT Pulse 56 05/24/2021 6:54 AM CDT Temperature 36.8 ??C (98.2 ??F) 05/24/2021 6:54 AM CD T Respiratory Rate 19 05/24/2021 6:54 AM CDT Oxygen Saturation 99% 05/24/2021 6:54 AM CDT Inhaled Oxygen Concentration - - Weight 88.5 kg (195 lb) 05/16/2021 10:19 AM CDT Height 182.9 cm (6') 05/16/2021 10:19 AM CDT Body Mass Index 26.45 05/16/2021 10:19 AM CDT documented in this encounter Discharge Instructions * Discharge Instructions* Krish Chaudhari MD - 05/24/2021 8:32 AM CDT Normal colonoscopy Repeat colonoscopy 5 years * Attachments The following attachments cannot be sent through Care Everywhere. * Colonoscopy Discharge Instructions ([place]ux[place]) * General Anesthesia Discharge Instructions ([place]) documented in this encounter Medications at Time [...] of this encounter H&P Notes * Krish Chaudhari MD - 05/24/2021 8:04 AM CDT Krish Chaudhari MD, FACG, FACP Attending Provider: Krish Chaudhari MD PCP: KARLEE BERG MD PATIENT: David [...] Gatherings with Friends and Family: ??? Attends Buddhism Services: ??? Active Member of Clubs or Organizations: ??? Attends Club or Organization Meetings: ??? Marital Status: Intimate Partner Violence: ??? Fear of Current or Ex-Partner: ??? Emotionally Abused: ??? Physically Abused: ??? Sexually Abused: Current Facility-Administered Medications: ??? lactated ringers infusion, , Intravenous, Continuous, Sterling U. MD Eleuterio No Known Allergies Travel Exposure: No current [...] no edema. Assessment & Plan: Colonoscopy Krish Chaudhari 05/24/2021 documented in this encounter Procedure Notes * Krish Chaudhari MD - 05/24/2021 8:08 AM CDTAssociated Order(s): COLONOSCOPY; SALINE LOCK IV Procedure(s): COLONOSCOPY KRISH CHAUDHARI MD, FACG, FACP COLONOSCOPY 05/24/2021 This is [...] the left lateral decubitus position, the Olympus [id number] colonoscope was introduced into the rectum and [...] Berg and Dr. Gibbons as needed. Krish Chaudhari M.D. Cc: Dr. Brandon Gutierrez; Dr. Gibbons documented in this encounter Nursing Notes * Maylin Gurrola RN - 05/16/2021 10:25 AM CDT Pt. Agreed to attempt emailing [employer] Vaccine card and will also bring. documented [...] Colonoscopy (05/24/2021 8:08 AM CDT) Narrative Krish Chaudhari MD - 05/24/2021 8:08 AM CDT Krish Chaudhari MD ? 05/24/2021 ??8:35 AM KRISH CHAUDHARI MD, FACG, FACP COLONOSCOPY 05/24/2021 This is [...] the left lateral decubitus position, the Olympus [id number] ??colonoscope was introduced into the rectum and [...] Berg and Dr. Gibbons as needed. Krish Chaudhari M.D. Cc: Dr. Brandon Gutierrez; Dr. Gibbons us Krish Chaudhari MD GI PROCEDURE ORDERABLES Fin al Result * PROCEDURE GENERIC (05/24/2021 7:29 AM CDT) Narrative 05/24/2021 7:29 AM CDT Ordered by an unspecified provider. us Documents Scanned [facility] Final Result * (ABNORMAL) POCT glucose (05/24/2021 7:15 AM CDT) GLUCOSE POC 116(H) 70 - 99 mg/dL 05/24/2021 7:19 AM CDT [facility] 05/24/2021 7:15 AM CDT us Krish Chaudhari MD POCT ORDERABLES - DEVICE Fi nal Result [facility] [address] [place] [address], [place] [phone] documented in this encounter Visit Diagnoses Not [...] PACU documented in this encounter Care Teams Brewery Pumper Relationship Specialty Start Date End Date Karlee Berg MD [address] [address] PCP - General FAMILY PRACTICE 05/18/21 documented as of this encounter
--- OUTSIDE RECORDS SUMMARY | 2024-11-23 10:32 | XMS_ITS | Encounter Summary ---
Author Organization [facility] Address [address] [place] [address]. 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 No / Unsure 05/16/2021 10:19 AM CDT documented as of this encounter Plan of Treatment Not on file documented as of this encounter Visit Diagnoses Not on filedocumented in this encounter
--- OUTSIDE RECORDS SUMMARY | 2024-11-23 10:32 | XMS_ITS | Encounter Summary ---
Author Organization [facility] Address [address] [place] [address]. [place], [place] [address] [place] [address] Care Team Providers Care Geodetic Survey Director Name Role Phone Avinash Berg MD Primary Care Provider +1- [phone] Reason for Visit * Auth/Cert Specialty Diagnoses / Procedures Referred By Contac t Referred To Contact Diagnoses HISTORY OF COLON CANCER Procedures COLONOSCOPY Referral ID Status Reason Start Date Expiration Date Visits Re quested Visits Authorized [id number] 1 1 Encounter Details Date Type Department Care Team (Late st Contact Info) Description 05/24/2021 8:04 AM CDT Anesthesia Event [facility] [address] Sterling Mcclellan MD [address] [facility] [address] [address] Anesthesia Record Procedure Summary Procedure Name Responsible Anesthesiologist Anesthesia Start Time Anesthesia Stop Time COLONOSCOPY Sterling Mcclellan MD 05/24/21 0804 1 0832 Events Date Time Event Comment 05/24/2021 0709 0709 AN Anesthesia Prepped 0804 An Start Patient ID and consent checked and patient reassessed. 0804 An Start Data 0806 Nasal Cannula Applied 0808 An Induction The patient was reevaluated immediately before moderate or deep sedation use and before anesthesia induction. 0808 Anesthesia Ready 0829 An Emergence 0829 Nasal Cannula Removed 0831 an stop data 0832 Post Anesthetic Care Handoff I completed my handoff to the receiving nurse during which we: 1. Identified the patient 2. Identified the responsible provider 3. Reviewed the pertinent medical history 4. Discussed the surgical course 5. Reviewed intra-op anesthesia management and issues during anesthesia 6. Set expectations for post-procedure period 7. Allowed opportunity for questions and acknowledgement of understanding. 0832 An Stop Meds Name Total propofol (DIPRIVAN) 200 mg/20 mL injecti on 350 mg lactated ringers infusion 400 mL * Agents Name O2 N2O Air Inspired Sevoflurane Sevoflurane Ancillary O2 * Blood No blood administrations on file. Lines, Drains, and Airways Type Details Placement Removal Peripheral IV Placement Date: 05/10 03/30; Placement Time: 723; Placed Outside of This Facility?: No; Size: 20 G; Orientation: Anterior, Right; Location: Hand; Site Prep: Chlorhexidine; Local Anesthetic: None; Inserted By: Hang Aguilar; Insertion attempts: 1; Ultrasound-guided Placement?: No; Patient Tolerance: Tolerated well; Removal Date: 05/24/21; Removal Time: 847; Removal Reason: Patient Discharged 05/24/21723 by Vannessa Aguilar RN 05/24/21847 by Xiomara Pedroza RN documented in this encounter Social History Tobacco Use Types Packs/Day Years Used Date Smoking Tobacco: Never Smokeless Tobacco: Never Alcohol Use Standard Drinks/Week Comments Yes 3.3 (1 standard drink = 0.6 oz p ure alcohol) Sex and Gender Information Value Date Recorded Sex Assigned at Not on file 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 No / Unsure 05/24/2021 6:15 AM CDT documented as of this encounter OR Notes * Anesthesia Postprocedure Evaluation - Sterling Mcclellan MD - 05/24/2021 4:21 PM CDT Anesthesia Post-op Note David Pan Procedure(s): COLONOSCOPY (N/A ) Anesthesia type: general Vitals: 05/24/21843 BP: 131/87 Vitals: 05/24/21843 Pulse: 67 Vitals: 07/15/21 0844 Resp: 18 Vitals: 05/24/21 0834 Temp: 36.5 ??C Vitals: 05/24/21 0844 SpO2: 95% Patient Location: PACU Level of Consciousness: awake and alert Pain Management: adequate analgesia Airway Patency: patent Respiratory Status: acceptable Cardiovascular Status: acceptable Post-Op Nausea: none Postoperative Hydration: euvolemic There were no known complications for this encounter. * Anesthesia Preprocedure Evaluation - Sterling Mcclellan MD - 05/24/2021 7:05 AM CDT Images from the original note were not included. Anesthesia ROS/MED History Reviewed: Patient summary , Family history anesthesia, Anesthesia history , Medications , Unchecked boxes arenot applicable Pre-Anesthetic State: alert, awake and responds appropriately no history of anesthetic complications Pulmonary neg pulmonary ROS (-) sleep apnea, asthma, smoker Cardiovascular (+) hypertension, (well controlled), hyperlipidemia(-) past [place], CAD, angina Neuro/Psych (-) no TIA, no CVA, no substance use GI/Hepatic/Renal (-) GERD, liver disease, renal disease Endo/Other (+) diabetes mellitus, (well controlled), (type 2), (Using Oral hypoglycemic), obese (-) hypothyroidism, hyperthyroidism, arthritis, blood dyscrasia GENERAL COMMENTS No Known Allergies Past Medical History: No date: Cancer (CMS/HCC) Comment: colon cancer/testicular cancer No date: Diabetes mellitus (CMS/HCC) No date: HLD (hyperlipidemia) No date: Hypertension Past Surgical History: No date: COLON SURGERY Comment: resection Physical Evaluation Airway Mallampati: II TM Distance: >3 FB Neck ROM: normal Dental (bridgework) Pulmonary Pulmonary exam normal Breath sounds clear to auscultation Cardiovascular Rhythm: regular Rate: normal Cardiovascular exam normal Other findings: Blood pressure 137/87, pulse 56, temperature 36.8 ??C, temperature source Temporal,resp. rate 19, height 6' (1.829 m), weight 88.5 kg (195 lb), SpO2 99 %. No results for input(s): WBC, RBC, HGB, HCT, PLT, NA, K, CL, CO2, AGAP, BUN, CR, BUNCREATININ, GFRNON, GFR, GLU, CA in the last 72 hours. Anesthesia Plan ASA 2 Intravenous Induction Anesthesia type: general Plan for Airway: nasal cannula/simple face mask Plan for Post-op Pain Plan: oral pain medication Discussed potential risks of General Anesthesia including but not limited to corneal abrasion, visual impairment or visual loss, mouth injury, dental damage, sore throat, hoarseness, esophageal injury, awareness under anesthesia, nerve injury due to positioning, aspiration, pneumonia, stroke, cardiac event, adverse drug reactions and . TIVA Informed Consent Anesthetic plan and risks discussed with patient of whom consent was obtained. . documented in this encounter Plan of Treatment Not on file documented as of this encounter Visit Diagnoses Not on filedocumented in this encounter Administered Medications Inactive Administered Medications - up to 3 most recent administrations Medication Order MAR Action Action Date Dose Rate Site lactated ringers infusion at 10 mL/hr, Intravenous, Continuous, Starting on Sangeetha 05/24/21 at 0730, Until Sangeetha 05/24/21 at 1110, Infuse at TKO rate, Pre-Op New Bag 05/24/2021 8:00 AM CDT propofol (DIPRIVAN) IV bolus Intravenous, PRN, Starting on Sangeetha 05/24/21 at 0808, Until Sangeetha 05/24/21 at 0832, Anesthesia Intra-Op Given 05/24/2021 8:26 AM CDT 40 mg Given 05/24/2021 8:17 AM CDT 30 mg Given 05/24/2021 8:15 AM CDT 40 mg documented in this encounter Care Teams Geodetic Survey Director Relationship Specialty Start Date End Date Avinash Berg MD [address] [address] PCP - General FAMILY PRACTICE 05/18/21 documented as of this encounter
--- OUTSIDE RECORDS SUMMARY | 2024-11-23 10:33 | XMS_ITS | Encounter Summary ---
Author Organization [facility] Address [address] [place] [address] Care Team Providers Care Fireworks Maker Name Role Phone Avinash Berg MD Primary Care Provider +1- [phone] Encounter Details Date Type Department Care Team (Late st Contact Info) Description 07/20/2024 External Device Data STL ABSTRACTION Provider, Abstract NO ADDRESS ON FILE Social History Tobacco Use Types Packs/Day Years Used Date Smoking Tobacco: Never Smokeless Tobacco: Never Alcohol Use Standard Drinks/Week Comments Not Asked 2 (1 standard drink = 0.6 oz pur e alcohol) occassional 2 Sex and Gender Information Value Date Recorded Sex Assigned at Not on file Gender Identity Not on file Sexual Orientation Not on file documented as of this encounter Plan of Treatment Upcoming Encounters Date Type Department Care Team (Late st Contact Info) Description 11/24/2025 2:15 PM STICK ROLLER Office Visit [facility] Oncology and Hematology - [place] [address] [facility] [address] [place] [address] Brock Gibbons MD [address] [address] documented as of this encounter Visit Diagnoses Not on filedocumented in this encounter Care Teams Fireworks Maker Relationship Specialty Start Date End Date Avinash Begr MD [address] [address] PCP - General Family Practice 06/13/17 documented as of this encounter
--- OUTSIDE RECORDS SUMMARY | 2024-11-23 10:33 | XMS_ITS | Encounter Summary ---
Author Organization [facility] Address [address] [place] [address] Care Team Providers Care Industrial Safety And Health Manager Name Role Phone Avinash Berg MD Primary Care Provider +1- [phone] Encounter Details Date Type Department Care Team (Late st Contact Info) Description 12/10/2023 External Device Data STL ABSTRACTION Provider, Abstract [...] st Contact Info) Description 11/24/2025 2:15 PM BAR GAUGER AND LUBRICATOR TENDER Office Visit [facility] Oncology and Hematology - [place] [address] [facility] 200 [place] [address] Brock Gibbons MD [address] [address] documented as of this encounter Visit Diagnoses Not on filedocumented in this encounter Care Teams Industrial Safety And Health Manager Relationship Specialty Start Date End Date Avinash Berg MD [address] [address] PCP - General Family Practice 06/13/17 documented as of this encounter
--- OUTSIDE RECORDS SUMMARY | 2024-11-23 10:33 | XMS_ITS | Clinical Summary ---
Author Organization [facility] Address [address] [place] [address] Care Team Providers Care Screener And Blender Name Role Phone Avinash Berg MD Primary Care Provider +1- [phone] Allergies No known active allergies Medications Medication Sig Dispensed Refills Start Date End Date Status pravastatin (PRAVACHOL) 20 mg tablet Take 20 mg by mouth late in the day. Active glimepiride (AMARYL) 1 mg tablet Take 1 mg by mouth daily with breakfast. Active multivitamin (DAILY-SOPHIA) tablet Take 1 Tablet by mouth daily. Active ONETOUCH DELICA LANCETS 30 gauge 06/22/2018 Active ONETOUCH ULTRA2 Kit 06/18/2018 Activ e ONETOUCH ULTRA BLUE TEST STRIP Strip 06/20/2018 Active losartan (COZAAR) 50 mg tablet 10/06/2018 Active metFORMIN (GLUCOPHAGE XR) 500 mg Extended Release 24 hour tablet Take 500 mg by mouth daily after supper. Pt takes 4 500mg tablets in evening per dr wheeler instruction 01/29/2019 Active traZODone (DESYREL) 100 mg tablet 10/23/2022 Active Active Problems Problem Noted Date Diagnosed Date Malignant neoplasm of sigmoid colon 06/18/2017 Encounters Date Type Department Care Team Description 11/19/2024 Orders Only [facility] Oncology and Hematology [facility] [address] [place] [address] Brock Gibbons MD 11/18/2024 1:00 PM WATCH DIAL PRINTER Office Visit [facility] Oncology and Hematology [place] [address] [place] [address] Brock Gibbons MD Malignant neoplasm of colon, unspecified part of colon (Primary Dx) 11/16/2024 External Device Data STL ABSTRACTION Provider, Abstract 09/07/2024 External Device Data STL ABSTRACTION Provider, Abstract 08/24/2024 External Device Data STL ABSTRACTION Provider, Abstract from Last 3 Months Family History Medical History Relation Name Comments Cancer Mother Relation Name Status Comments Father Alive Mother Alive Sister Alive Social History Tobacco Use Types Packs/Day Years Used Date Smoking Tobacco: Never Smokeless Tobacco: Never Tobacco Cessation:Counseling Given: Not Answered Alcohol Use Standard Drinks/Week Comments Not Asked 2 (1 standard drink = 0.6 oz pur e alcohol) occassional 2 Sex and Gender Information Value Date Recorded Sex Assigned at Not on file Gender Identity Not on file Sexual Orientation Not on file Last Filed Vital Signs Vital Sign Reading Time Taken Comments Blood Pressure 127/81 11/18/2024 1:02 PM WATCH DIAL PRINTER Pulse 70 11/18/2024 1:02 PM WATCH DIAL PRINTER Temperature 36.8 ??C (98.3 ??F) 11/18/2024 1:02 PM CS T Respiratory Rate 17 11/18/2024 1:02 PM WATCH DIAL PRINTER Oxygen Saturation 96% 11/18/2024 1:02 PM WATCH DIAL PRINTER Inhaled Oxygen Concentration - - Weight 91.6 kg (202 lb) 11/18/2024 1:02 PM WATCH DIAL PRINTER Height 185.4 cm (6' 1 ) 11/19/2021 2:09 PM WATCH DIAL PRINTER Body Mass Index 26.65 11/19/2021 2:09 PM WATCH DIAL PRINTER Plan of Treatment Upcoming Encounters Date Type Department Care Team (Late st Contact Info) Description 11/24/2025 2:15 PM WATCH DIAL PRINTER Office Visit [facility] Oncology and Hematology - [place] [address] [facility] [address] [place] [address] Brock Gibbons MD [address] [facility] [address] [place] [address] Health Maintenance Due Date Last Done Comments PNEUMOCOCCAL VACCINE 0-64 YEARS (1 of 2 - PCV) 966 DIABETES ANNUAL FOOT EXAM 1978 DIABETES ANNUAL RETINAL EXAM 1978 DIABETES HBA1C Q 6 MONTHS 1978 DIABETES MICROALBUMIN ANNUAL SCREEN 1978 LDL CHOLESTEROL ANNUAL 1978 DTAP/TDAP/TD VACCINES (1 - Tdap) 1979 ZOSTER VACCINE (2 of 2) 11/27/2022 10/02/2022 INFLUENZA VACCINE (#1) 2024 10/02/2022 RSV VACCINE (60+ or ) (1 - 1-dose 75+ series) 2035 Procedures Procedure Name Priority Date/Time Associated Diagnosis Comments COMPREHENSIVE METABOLIC PANEL Routine 11/16/2024 2:06 PM WATCH DIAL PRINTER from Last 3 Months Results * COMPREHENSIVE METABOLIC PANEL (11/16/2024 2:06 PM WATCH DIAL PRINTER) Blood Brock Gibbons MD CHEMISTRY ORDERABLES from Last 3 Months Care Teams Screener And Blender Relationship Specialty Start Date End Date Avinash Berg MD 1 [facility] [address] [place] [address] PCP - General Family Practice 06/13/17
--- OUTSIDE RECORDS SUMMARY | 2024-11-23 10:33 | XMS_ITS | Encounter Summary ---
Author Organization [facility] Address [address] [place] [address] Care Team Providers Care Globe Cleaner Name Role Phone Avinash Berg MD Primary Care Provider +1- [phone] Encounter Details Date Type Department Care Team (Late st Contact Info) Description 09/07/2024 External Device Data STL ABSTRACTION Provider, [...] st Contact Info) Description 11/24/2025 2:15 PM PROJECT MANAGEMENT ADVISOR Office Visit [facility] Oncology and Hematology - [place] [address] [facility] 200 [place] [address] Brock Gibbons MD [address] [address] documented as of this encounter Visit Diagnoses Not on filedocumented in this encounter Care Teams Globe Cleaner Relationship Specialty Start Date End Date Avinash Berg MD [address] [address] PCP - General Family Practice 06/13/17 documented as of this encounter
--- OUTSIDE RECORDS SUMMARY | 2024-11-23 10:33 | XMS_ITS | Encounter Summary ---
Author Organization [facility] Address [address] [place] [address] Care Team Providers Care Commercial Credit Head Name Role Phone Avinash Berg MD Primary Care Provider +1- [phone] Encounter Details Date Type Department Care Team (Late st Contact Info) Description 12/29/2023 External Device Data STL ABSTRACTION Provider, Abstract [...] st Contact Info) Description 11/24/2025 2:15 PM ELEMENTARY READING SPECIALIST Office Visit [facility] Oncology and Hematology - [place] [address] [facility] 200 [place] [address] Brock Gibbons MD [address] [address] documented as of this encounter Visit Diagnoses Not on filedocumented in this encounter Care Teams Commercial Credit Head Relationship Specialty Start Date End Date Avinash Berg MD [address] [address] PCP - General Family Practice 06/13/17 documented as of this encounter
--- OUTSIDE RECORDS SUMMARY | 2024-11-23 10:33 | XMS_ITS | Encounter Summary ---
Author Organization [facility] Address [address] [place] [address] Care Team Providers Care Guest Services Manager Name Role Phone Avinash Berg MD Primary Care Provider +1- [phone] Encounter Details Date Type Department Care Team (Late st Contact Info) Description 12/12/2023 External Device Data STL ABSTRACTION Provider, Abstract [...] st Contact Info) Description 11/24/2025 2:15 PM PUBLIC HEALTH DOCTOR Office Visit [facility] Oncology and Hematology - [place] [address] [facility] 200 [place] [address] Brock Gibbons MD [address] [address] documented as of this encounter Visit Diagnoses Not on filedocumented in this encounter Care Teams Guest Services Manager Relationship Specialty Start Date End Date Avinash Berg MD [address] [address] PCP - General Family Practice 06/13/17 documented as of this encounter
--- OUTSIDE RECORDS SUMMARY | 2024-11-23 10:33 | XMS_ITS | Encounter Summary ---
Author Organization [facility] Address [address] [place] [address] Care Team Providers Care Director Of Conservation Name Role Phone Avinash Berg MD Primary Care Provider +1- [phone] Encounter Details Date Type Department Care Team (Late st Contact Info) Description 06/30/2024 External Device Data STL ABSTRACTION Provider, Abstract [...] st Contact Info) Description 11/24/2025 2:15 PM AGRICULTURAL ENGINEERING TECHNICIANS Office Visit [facility] Oncology and Hematology - [place] [address] [facility] 200 [place] [address] Brock Gibbons MD [address] [address] documented as of this encounter Visit Diagnoses Not on filedocumented in this encounter Care Teams Director Of Conservation Relationship Specialty Start Date End Date Avinash Berg MD [address] [address] PCP - General Family Practice 06/13/17 documented as of this encounter
--- OUTSIDE RECORDS SUMMARY | 2024-11-23 10:33 | XMS_ITS | Encounter Summary ---
Author Organization [facility] Address [address] [place] [address] Care Team Providers Care Manager Home Name Role Phone Avinash Berg MD Primary Care Provider +1- [phone] Encounter Details Date Type Department Care Team (Late st Contact Info) Description 08/03/2024 External Device Data STL ABSTRACTION Provider, Abstract [...] st Contact Info) Description 11/24/2025 2:15 PM ELEMENT SETTER Office Visit [facility] Oncology and Hematology - [place] [address] [facility] 200 [place] [address] Brock Gibbons MD [address] [address] documented as of this encounter Visit Diagnoses Not on filedocumented in this encounter Care Teams Manager Home Relationship Specialty Start Date End Date Avinash Berg MD [address] [address] PCP - General Family Practice 06/13/17 documented as of this encounter
--- OUTSIDE RECORDS SUMMARY | 2024-11-23 10:33 | XMS_ITS | Encounter Summary ---
Author Organization [facility] Address [address] [place] [address] Care Team Providers Care Rn Lactation Name Role Phone Avinash Berg MD Primary Care Provider +1- [phone] Encounter Details Date Type Department Care Team (Late st Contact Info) Description 08/24/2024 External Device Data STL ABSTRACTION Provider, [...] st Contact Info) Description 11/24/2025 2:15 PM MARKETING TEAM LEAD Office Visit [facility] Oncology and Hematology - [place] [address] [facility] 200 [place] [address] Brock Gibbons MD [address] [address] documented as of this encounter Visit Diagnoses Not on filedocumented in this encounter Care Teams Rn Lactation Relationship Specialty Start Date End Date Avinash Berg MD [address] [address] PCP - General Family Practice 06/13/17 documented as of this encounter
--- OUTSIDE RECORDS SUMMARY | 2024-11-23 10:33 | XMS_ITS | Encounter Summary ---
Author Organization [facility] Address [address] [place] [address] Care Team Providers Care Integrated Logistics Programs Director Name Role Phone Avinash Berg MD Primary Care Provider +1- [phone] Encounter Details Date Type Department Care Team [...] st Contact Info) Description 11/24/2025 2:15 PM BOILERMAKER CENTRAL STEAM PLANT Office Visit [facility] Oncology and Hematology - [place] [address] [facility] 200 [place] [address] Brock Gibbons MD [address] [address] documented as of this encounter Visit Diagnoses Not on filedocumented in this encounter Care Teams Integrated Logistics Programs Director Relationship Specialty Start Date End Date Avinash Berg MD [address] [address] PCP - General Family Practice 06/13/17 documented as of this encounter
--- OUTSIDE RECORDS SUMMARY | 2024-11-23 10:33 | XMS_ITS | Encounter Summary ---
Author Organization [facility] Address [address] [place] [address] Care Team Providers Care Soil Checker Name Role Phone Avinash Berg MD Primary Care Provider +1- [phone] Encounter Details Date Type Department Care Team (Late st Contact Info) Description 06/29/2024 External Device Data STL ABSTRACTION Provider, Abstract [...] st Contact Info) Description 11/24/2025 2:15 PM MOTOR VEHICLE ASSEMBLY SUPERVISOR Office Visit [facility] Oncology and Hematology - [place] [address] [facility] 200 [place] [address] Brock Gibbons MD [address] [address] documented as of this encounter Visit Diagnoses Not on filedocumented in this encounter Care Teams Soil Checker Relationship Specialty Start Date End Date Avinash Berg MD [address] [address] PCP - General Family Practice 06/13/17 documented as of this encounter
--- OUTSIDE RECORDS SUMMARY | 2024-11-23 10:34 | XMS_ITS | Encounter Summary ---
Author Organization [facility] Address [address] [place] [address] Care Team Providers Care Composite Boat Builder Name Role Phone Avinash Berg MD Primary Care Provider +1- [phone] Encounter Details Date Type Department Care Team ([facility] Contact Info) Description 11/15/2022 Orders Only [facility] Oncology and [facility] [address] [facility] [address] [place] [address] Mary oD Malignant neoplasm of colon, unspecified part of colon Social History Tobacco Use Types Packs/Day Years [...] Exposure Response Date Recorded In the last 10 days, have yo u been in contact with someone who was confirmed or suspected to have Coronavirus/COVID-19? No / Unsure 11/18/2022 1:39 PM TECHNOLOGY ADMINISTRATOR documented as of this encounter Plan of Treatment Upcoming Encounters Date Type Department Care Team (Late Contact Info) Description 11/24/2025 2:15 PM TECHNOLOGY ADMINISTRATOR Office Visit [facility] Oncology and [facility] [address] [place] [address] Brock Gibbons MD [address] [facility] [address] [place] [address] documented as of this encounter Visit Diagnoses Diagnosis Malignant neoplasm of colon, unspecified part of colon documented in this encounter Care Teams Composite Boat Builder Relationship Specialty Start Date End Date Avinash Berg MD [address] [address] PCP - General Family Practice 06/13/17 documented as of this encounter
--- OUTSIDE RECORDS SUMMARY | 2024-11-23 10:34 | XMS_ITS | Encounter Summary ---
Author Organization [facility] Address [address] [place] [address] Care Team Providers Care Electrician Outside Name Role Phone Avinash Berg MD Primary Care Provider +1- [phone] Encounter Details Date Type Department Care Team (Late Contact Info) Description 07/23/2018 Orders Only [facility] Oncology and Hematology [facility] [address] [place] [address] Ondina Ferreira RN Malignant neoplasm of sigmoid colon Social History Tobacco Use Types Packs/Day [...] (Late Contact Info) Description 11/24/2025 2:15 PM SAFETY COUNCIL DIRECTOR Office Visit [facility] Oncology and Hematology [facility] [address] [place] [address] Brock Gibbons MD [address] [facility] [address] [place] [address] documented as of this encounter Procedures Procedure Name Priority Date/Time Associated Diagnosis Comments PET TUMOR OR INFECTION IMG W CT SKB MDTH Routine 07/23/2018 Malignant neoplasm of sigmoid colon documented in this encounter Results * PET TUMOR IMG W CT SKL BSE MID THG (07/23/2018) Anatomical Region Laterality Modality Other Brock Gibbons MD PE ORDERABLES documented in this encounter Visit Diagnoses Diagnosis Malignant neoplasm of sigmoid colon documented in this encounter Care Teams Electrician Outside Relationship Specialty Start Date End Date Avinash Berg MD [address] [phone] PCP - General Family Practice 06/13/17 documented as of this encounter
--- OUTSIDE RECORDS SUMMARY | 2024-11-23 10:34 | XMS_ITS | Encounter Summary ---
Author Organization [facility] Address [address] [place] [address] Care Team Providers Care Program Developer Name Role Phone Avinash Berg MD Primary Care Provider +1- [phone] Reason for Visit * Reason Comments Follow Up Labs And Ct scan Encounter Details Date Type Department Care Team (Late st Contact Info) Description 04/15/2018 9:00 AM CDT Office Visit [facility] Oncology and Hematology - [place] [address] [facility] [address] [place] [address] Brock Gibbons MD [address] [facility] [address] [place] [address] Malignant neoplasm of sigmoid colon (Primary Dx) Social History Tobacco Use Types Packs/Day Years Used Date Smoking Tobacco: Never Smokeless Tobacco: Never Alcohol Use Standard Drinks/Week Comments Not Asked 2 (1 standard drink = 0.6 oz pur e alcohol) occassional 2 Sex and Gender Information Value Date Recorded Sex Assigned at Not on file Gender Identity Not on file Sexual Orientation Not on file documented as of this encounter Last Filed Vital Signs Vital Sign Reading Time Taken Comments Blood Pressure 131/76 04/15/2018 8:58 AM CDT Pulse 54 04/15/2018 8:58 AM CDT Temperature 36.9 ??C (98.4 ??F) 04/15/2018 8:58 AM CD T Respiratory Rate 18 04/15/2018 8:58 AM CDT Oxygen Saturation 96% 04/15/2018 8:58 AM CDT Inhaled Oxygen Concentration - - Weight 89.8 kg (198 lb) 04/15/2018 8:58 AM CDT Height 185.4 cm (6' 1 ) 04/15/2018 8:58 AM CDT Body Mass Index 26.12 04/15/2018 8:58 AM CDT documented in this encounter Progress Notes * Brock Gibbons MD - 04/15/2018 9:47 AM CDT HEMATOLOGY / ONCOLOGY PROGRESS NOTE Patient Identification: Name: David Pan Age: 57 y.o. Sex: male : 1960 Subjective: HPI This is a pleasant 56-year-old male who was recently diagnosed to have early stage colon cancer when he presented with left lower quadrant pain started back in February 2017 along with bright red blood in the stool. Patient was initially treated with one month of antibiotics for possible diverticulitis. He eventually patient had a colonoscopy done in April 2017 that confirmed the finding ofcolon cancer. Patient had hand-assisted laparoscopic sigmoid colon resection with end to end anastomosis done on May 30, 2017. He is recovering well from the surgery. Interval History: Patient completed last round of chemotherapy with FOLFOX on December 17, 2017. CT abdomen and pelvis done on April 13, 2018. Review of system Constitutional: No fever; no night sweats; no anorexia; no weight loss; no fatique Respiratory: No shortness of breath; no pleuritic chest pain; no cough; no hemoptysis Cardiac: No cardiac-like chest pain; no palpitations; no orthopnea; no PND; no DIAS GI: No abdominal pain; no nausea; no vomiting; patient had couple of episodes of diarrhea recently which has not resolved; no constipation, no hematochezia; no melena Musculosketetal: no bone pain; no arthralgia; no joint swelling; no myalgia; Neuro: No headache; no change in vision; complain of some numbness and tingling involving hands andfeet but remains stable, no muscle weakness; no confusion; no seizures Ext no edema Objective: Vital signs in last 24 hours: As per nursing note Exam: Gen: NAD Lungs: Clear Cardiac: S1 and S2 without murmurs or gallops Abd: Soft, tender, no hepatomegally, no masses Extr: No LE edema Scheduled Meds:@[email or web address]@ Continuous Infusions:@[email or web address]@ Data Review: [facility] Labs from July 02 W BC 4.6 hemoglobin 15.5 platelet 162,000 neutrophils 64% creatinine 0.8 potassium 3.9. Labs from July 16 showed potassium 4.1 glucose 148 creatinine 0.7 WBC 7.7 hemoglobin 15.2 platelet 135,000. Labs from July 30 showed WC 10.4 hemoglobin 14.6 platelet 129,000 Labs from August 13 showed WC 8.6 hemoglobin 14.8 platelet 211,000 potassium 4.1 creatinine 0.8. Labs from September 10 showed WBC 6.5 hemoglobin 14.6 platelet 104,000 creatinine 0.8 potassium 4.0. Labs from October 08 showed WbC 8.1 hemoglobin 16.3 platelet 100,000 creatinine 0.8 potassium 4.1 Labs from October 22 showed WbC 8.6 hemoglobin 15.9 platelet 89,000. Labs from November 19 showed WC 5.1 hemoglobin 15 platelet 138,000. Labs from December 17 showed WC 9.0 hemoglobin 15.3 platelet 81,000 creatinine 0.8. Labs from January 14, 2018 showed WBC 3.7 hemoglobin 15.3 platelet 134,000 creatinine 0.8. Labs done on April 13 showed CEA level slightly elevated at 3.9 with normal liver function tests. WBC 4.0 hemoglobin 14 platelet 125,000. Assessment: Plan: Patient Active Problem List Diagnosis Date Noted ??? Malignant neoplasm of sigmoid colon 06/18/2017 Moderately differentiated colonic adenocarcinoma 3.6 x 3.6 x 0.7 cm invading through muscularis propria and focally invading pericolonic fat not involving the resection margins, 14 benign lymph nodesstatus post hand-assisted laparoscopic sigmoid colon resection with end to end anastomosis done on May 30, 2017. Pathology further showed no evidence of lymphovascular invasion and perineural invasion with low-grade tumor. K-tod wild-type microsatellite instability not detected. Patient was started on adjuvant chemotherapy due to high risk features of pericolonic fat invasion and undetectable microsatellite instability. Patient completed chemotherapy with FOLFOX on December 17 2017. Clinically patient is doing fine without any bleeding and bruising. Denies any diarrhea constipation. CT scan done showed no evidence of relapse of disease. CEA came back slightly elevated. I will repeat labs including CEA in 3 months. He is going to have colonoscopy on May 19. Insomnia.Continue Ambien XR. Neuropathy. Stable and would not require any treatment at this time. Thrombocytopenia secondary to chemotherapy. Platelet remains low at 125,000 but is stable. History of testicular cancer status post surgery and radiation therapy 2 years ago. Patient has been followed by Dr. Quang Farris. He is in remission. ? 04/15/2018 Brock Gibbons MD documented in this encounter Plan of Treatment Upcoming Encounters Date Type Department Care Team (Late st Contact Info) Description 11/24/2025 2:15 PM TRUCK BODY REPAIRER Office Visit [facility] Oncology and Hematology [facility] [address] [facility] [address] [place] [address] Brock Gibbons MD [address] [facility] [address] [place] [address] documented as of this encounter Results * COMPREHENSIVE METABOLIC PANEL (07/14/2018) Blood Brock Gibbons MD CHEMISTRY ORDERABLES EXTERNAL LAB * (ABNORMAL) CEA (07/14/2018) Blood Brock Gibbons MD CHEMISTRY ORDERABLES EXTERNAL LAB * CBC WITH DIFFERENTIAL (07/10/2018) Blood Brock Gibbons MD HEMATOLOGY ORDERABLE S EXTERNAL LAB documented in this encounter Visit Diagnoses Diagnosis Malignant neoplasm of sigmoid colon- Primary documented in this encounter Care Teams Program Developer Relationship Specialty Start Date End Date Avinash Berg MD [address] [facility] [address] [place] [address] PCP - General Family Practice 06/13/17 documented as of this encounter
--- OUTSIDE RECORDS SUMMARY | 2024-11-23 10:34 | XMS_ITS | Encounter Summary ---
Author Organization [facility] Address [address] [place] [address] Care Team Providers Care Line Patrolman Name Role Phone Avinash Berg MD Primary Care Provider +1- [phone] Encounter Details Date Type Department Care Team (Late Contact Info) Description 02/12/2019 Orders Only [facility] Oncology [facility] [address] [place] [address] Brock Gibbons MD [address] [employer] [address] [place] [address] Malignant neoplasm of sigmoid colon Social History [...] (Late Contact Info) Description 11/24/2025 2:15 PM CLEANING MAID Office Visit [facility] Oncology [facility] [address] [place] [address] Brock Gibbons MD [address] [employer] [address] [place] [address] documented as of this encounter Procedures Procedure Name Priority Date/Time Associated Diagnosis Comments CBC WITH DIFFERENTIAL Routine 02/12/2019 Malignant neoplasm of sigmoid colon CEA Routine 02/12/2019 Malignant neoplasm of sigmoid colon COMPREHENSIVE METABOLIC PANEL Routine 02/12/2019 Malignant neoplasm of sigmoid colon documented in this encounter Results * CEA (02/12/2019) Blood Brock Gibbons MD CHEMISTRY ORDERABLES EXTERNAL LAB * COMPREHENSIVE METABOLIC PANEL (02/12/2019) Blood Brock Gibbons MD CHEMISTRY ORDERABLES EXTERNAL LAB * (ABNORMAL) CBC WITH DIFFERENTIAL (02/12/2019) Blood Brock Gibbons MD HEMATOLOGY ORDERABLE S EXTERNAL LAB documented in this encounter Visit Diagnoses Diagnosis Malignant neoplasm of sigmoid colon documented in this encounter Care Teams Line Patrolman Relationship Specialty Start Date End Date Avinash Berg MD [address] [place] [address] PCP - General Family Practice 06/13/17 documented as of this encounter
--- OUTSIDE RECORDS SUMMARY | 2024-11-23 10:34 | XMS_ITS | Encounter Summary ---
Author Organization [facility] Address [address] [facility] Attn: [place] [address] Care Team Providers Care Side Laster Name Role Phone Avinash Berg MD Primary Care Provider +- [phone] Encounter Details Date Type Department Care Team (Latest Contact Info) Description 11/19/2021 Travel Social History Tobacco Use Types Packs/Day [...] have Coronavirus / COVID-19? No / Unsure 11/19/2021 2:00 PM PAPER CLEANER documented as of this encounter Plan of Treatment Upcoming Encounters Date Type Department Care Team (Late st Contact Info) Description 11/24/2025 2:15 PM PAPER CLEANER Office Visit [facility] Oncology and Hematology - [place] [address] [facility] [address] [place] [address] Brock Gibbons MD [address] [facility] [address] [place] [address] documented as of this encounter Visit Diagnoses Not on filedocumented in this encounter Care Teams Side Laster Relationship Specialty Start Date End Date Avinash Berg MD [address] [facility] [address] [place] [address] PCP - General Family Practice 06/13/17 documented as of this encounter
--- OUTSIDE RECORDS SUMMARY | 2024-11-23 10:34 | XMS_ITS | Encounter Summary ---
Author Organization [facility] [employer] [facility] Address [address] [place] [address] Care Team Providers Care Director Of Loss Prevention Name Role Phone Avinash Berg MD Primary Care Provider +1- [phone] Encounter Details Date Type Department Care Team (Late Contact Info) Description 05/24/2021 Orders Only [facility] Oncology and Hematology [facility] [address] [place] [address] Provider, Abstract NO ADDRESS ON FILE Social [...] Upcoming Encounters Date Type Department Care Team ([facility] Contact Info) Description 11/24/2025 2:15 PM GREENHOUSE ASSISTANT Office Visit [facility] Oncology and [facility] [address] [place] [address] Brock Gibbons MD [address] [facility] [address] [place] [address] documented as of this encounter Procedures Procedure Name Priority Date/Time Associated Diagnosis Comments COLONOSCOPY REPORT Routine 05/24/2021 documented in this encounter Results * COLONOSCOPY REPORT (05/24/2021) Abstract Provider GI PROCEDURE ORDERAB LES documented in this encounter Visit Diagnoses Not on filedocumented in this encounter Care Teams Director Of Loss Prevention Relationship Specialty Start Date End Date Avinash Berg MD [address] [address] PCP - General Family Practice 06/13/17 documented as of this encounter
--- OUTSIDE RECORDS SUMMARY | 2024-11-23 10:34 | XMS_ITS | Encounter Summary ---
Author Organization [facility] Address [address] [place] [address] Care Team Providers Care Court Attendant Name Role Phone Avinash Berg MD Primary Care Provider +1- [phone] Encounter Details Date Type Department Care Team (Late st Contact Info) Description 10/24/2023 External Device Data STL ABSTRACTION Provider, Abstract [...] st Contact Info) Description 11/24/2025 2:15 PM HIGH SCHOOL AGRICULTURE TEACHER Office Visit [facility] Oncology and Hematology - [place] [address] [facility] [address] [place] [address] Brock Gibbons MD [address] [address] documented as of this encounter Visit Diagnoses Not on filedocumented in this encounter Care Teams Court Attendant Relationship Specialty Start Date End Date Aviansh Berg MD [address] [address] PCP - General Family Practice 06/13/17 documented as of this encounter
--- OUTSIDE RECORDS SUMMARY | 2024-11-23 10:34 | XMS_ITS | Encounter Summary ---
Author Organization [facility] Address [address] [place] [address] Care Team Providers Care Riveting Machine Operator Automatic Name Role Phone Avinash Berg MD Primary Care Provider +1- [phone] Encounter Details Date Type Department Care Team (Late Contact Info) Description 11/13/2023 Orders Only [facility] Oncology and Hematology - Andre [facility] [address] [place] [address] Brock Gibbons MD [facility] [employer] [address] [place] [address] Social History Tobacco Use Types Packs/Day Years [...] st Contact Info) Description 11/24/2025 2:15 PM WOOD SCIENCE PROFESSOR Office Visit [facility] Oncology and Hematology - [place] [address] [place] [address] Brock Gibbons MD [facility] [employer] [address] [place] [address] documented as of this encounter Procedures Procedure Name Priority Date/Time Associated Diagnosis Comments COMPREHENSIVE METABOLIC PANEL Routine 11/12/2023 8:40 AM WOOD SCIENCE PROFESSOR documented in this encounter Results * COMPREHENSIVE METABOLIC PANEL (11/12/2023 8:40 AM WOOD SCIENCE PROFESSOR) Blood Brock Gibbons MD CHEMISTRY ORDERABLES documented in this encounter Visit Diagnoses Not on filedocumented in this encounter Care Teams Riveting Machine Operator Automatic Relationship Specialty Start Date End Date Avinash Berg MD [address] [place] [address] PCP - General Family Practice 06/13/17 documented as of this encounter
--- OUTSIDE RECORDS SUMMARY | 2024-11-23 10:34 | XMS_ITS | Encounter Summary ---
Author Organization [facility] Address [address] [place] [address] Care Team Providers Care Field Recorder Name Role Phone Avinash Berg MD Primary Care Provider +1- [phone] Encounter Details Date Type Department Care Team (Late Contact Info) Description 09/16/2019 Orders Only [facility] Oncology and Hematology [facility] [address] [place] [address] Brock Gibbons MD [facility] [employer] [address] [place] [address] Malignant neoplasm of colon, unspecified part of [...] (Late Contact Info) Description 11/24/2025 2:15 PM INVAS TECH Office Visit [facility] Oncology and Hematology [facility] [address] [place] [address] Brock Gibbons MD [facility] [employer] [address] [place] [address] documented as of this encounter Visit Diagnoses Diagnosis Malignant neoplasm of colon, unspecified part of colon documented in this encounter Care Teams Field Recorder Relationship Specialty Start Date End Date Avinash Berg MD [address] [address] PCP - General Family Practice 06/13/17 documented as of this encounter
--- OUTSIDE RECORDS SUMMARY | 2024-11-23 10:34 | XMS_ITS | Encounter Summary ---
Author Organization [facility] Address [address] [place] [address] Care Team Providers Care Marine Fire Fighter Name Role Phone Avinash Berg MD Primary Care Provider +1- [phone] Reason for Referral * Outpatient Services (Routine) - Closed Specialty Diagnoses / Procedures Referred By Contac t Referred To Contact Diagnoses Malignant neoplasm of sigmoid colon Procedures PET TUMOR IMG W CT SKL BSE MID THG Brock Gibbons MD [address] [address] [address] Referral ID Status Reason Start Date Expiration Date Visits Requested Visits Authorized [id number] Closed Ordering Department To Schedule 07/16/2018 08/14/2018 1 1 Reason for Visit * Reason Comments Follow Up Encounter Details Date Type Department Care Team (Late st Contact Info) Description 07/16/2018 9:00 AM CDT Office Visit [facility] Oncology and Hematology - [address] [address] Brock Gibbons MD [address] [place] [address] Malignant neoplasm of sigmoid colon (Primary [...] Sign Reading Time Taken Comments Blood Pressure 122/82 07/16/2018 9:07 AM CDT Pulse 60 07/16/2018 9:07 AM CDT Temperature 36.9 ??C (98.4 ??F) 07/16/2018 9:07 AM CD T Respiratory Rate - - Oxygen Saturation 97% 07/16/2018 9:07 AM CDT Inhaled Oxygen Concentration - - Weight 89.4 kg (197 lb) 07/16/2018 9:07 AM CDT Height 185.4 cm (6' 1 ) 07/16/2018 9:07 AM CDT Body Mass Index 25.99 07/16/2018 9:07 AM CDT documented in this encounter Progress Notes * Brock Gibbons MD - 07/16/2018 10:02 AM CDT HEMATOLOGY / ONCOLOGY PROGRESS NOTE [...] tests. WBC 4.0 hemoglobin 14 platelet 125,000. Labs done on July showed slightly elevated CEA of 4.2. Platelet 180,000. Assessment: Plan: Patient Active Problem List Diagnosis [...] of disease. CEA came back slightly elevated. Repeat CEA also came back elevated. I will order PET/CT. Patient had colonoscopy done on May 19 and came back unremarkabl e. If PET scan comes back normal then we will see him back in 3 months. Insomnia.Continue Ambien XR. Neuropathy. Stable. Thrombocytopenia secondary to chemotherapy. That led count normal now. History of testicular cancer status post surgery and radiation therapy 3 years ago. Patient has been followed by Dr. Quang Farris. He is in remission. ? 07/16/2018 Brock Gibbons MD documented in this encounter Plan of Treatment Upcoming Encounters Date Type Department Care Team (Late st Contact Info) Description 11/24/2025 2:15 PM ASSEMBLER PLASTIC BOAT Office Visit [facility]3] Oncology and Hematology - [place] [address] [place] [address] [facility] [address] [place] [address] Brock Gibbons MD [address] [facility] [address] [place] [address] documented as of this encounter Results * CEA (10/05/2018) Blood Brock Gibbons MD CHEMISTRY ORDERABLES EXTERNAL LAB * COMPREHENSIVE METABOLIC PANEL (10/05/2018) Blood Brock Gibbons MD CHEMISTRY ORDERABLES EXTERNAL LAB * CBC WITH DIFFERENTIAL (10/05/2018) Blood Brock Gibbons MD HEMATOLOGY ORDERABLE S EXTERNAL LAB * PET TUMOR IMG W CT SKL BSE MID THG (07/23/2018) Anatomical Region Laterality Modality Other Brock Gibbons MD PE ORDERABLES documented in this encounter Visit Diagnoses Diagnosis Malignant neoplasm of sigmoid colon- Primary documented in this encounter Care Teams Marine Fire Fighter Relationship Specialty Start Date End Date Avinash Berg MD [address] [place] [address] PCP - General Family Practice 06/13/17 documented as of this encounter
--- OUTSIDE RECORDS SUMMARY | 2024-11-23 10:34 | XMS_ITS | Encounter Summary ---
Author Organization [facility] [facility] Address [address] [place] [address] Care Team Providers Care Tabber Name Role Phone Avinash Berg MD Primary Care Provider +1- [phone] Encounter Details Date Type Department Care Team (Late Contact Info) Description 01/24/2021 Orders Only [facility] Oncology and Hematology [facility] [address] [place] [address] Shanna Bryan RN Malignant neoplasm of colon, unspecified part of [...] (Late Contact Info) Description 11/24/2025 2:15 PM TELLER COORDINATOR Office Visit [facility] Oncology and Hematology [facility] [address] [place] [address] Brock Gibbons MD [address] [facility] [address] [place] [address] documented as of this encounter Procedures Procedure Name Priority Date/Time Associated Diagnosis Comments CT ABDOMEN PELVIS W CONTRAST Routine 01/24/2021 Malignant neoplasm of colon, unspecified part of colon documented in this encounter Results * CT ABDOMEN PELVIS W CONTRAST (01/24/2021) Anatomical Region Laterality Modality Abdomen Other Brock Gibbons MD CT ORDERABLES documented in this encounter Visit Diagnoses Diagnosis Malignant neoplasm of colon, unspecified part of colon documented in this encounter Care Teams Tabber Relationship Specialty Start Date End Date Avinash Berg MD [address] [phone] PCP - General Family Practice 06/13/17 documented as of this encounter
--- OUTSIDE RECORDS SUMMARY | 2024-11-23 10:34 | XMS_ITS | Encounter Summary ---
Author Organization [facility] [employer] [facility] Address [address] [place] [address] Care Team Providers Care Elevator Runner Name Role Phone Avinash Breg MD Primary Care Provider +1- [phone] Reason for Visit * Reason Comments Follow Up Encounter Details Date Type Department Care Team (Late st Contact Info) Description 11/18/2023 2:30 PM BLADE GROOVER Office Visit [facility] [place] Oncology and Hematology - Andre [address] [facility] [address] [address] Brock Gibbons MD [address] [facility] [address] [place] [address] Malignant neoplasm of colon, unspecified part of colon (Primary Dx) Social History Tobacco Use [...] Sign Reading Time Taken Comments Blood Pressure 142/85 11/18/2023 2:21 PM BLADE GROOVER Pulse 60 11/18/2023 2:18 PM BLADE GROOVER Temperature 36.5 ??C (97.7 ??F) 11/18/2023 2:18 PM CS T Respiratory Rate 10 11/18/2023 2:18 PM BLADE GROOVER Oxygen Saturation 93% 11/18/2023 2:18 PM BLADE GROOVER Inhaled Oxygen Concentration - - Weight 88 kg (194 lb) 11/18/2023 2:18 PM BLADE GROOVER Height - - Body Mass Index 25.6 11/19/2021 2:09 PM BLADE GROOVER documented in this encounter Progress Notes * Brock Gibbons MD - 11/18/2023 2:47 PM CST HEMATOLOGY / ONCOLOGY PROGRESS NOTE Patient Identification: Name: David Pan Age: 63 y.o. Sex: male : 1960 DIAGNOSIS T3 N0 M0 stage IIA moderately differentiated adenocarcinoma of colon, K-tod wild type microsatellite stable tumor with pericolonic fat invasion status post laparoscopic sigmoid colon resection on May 30, 2017. CURRENT TREATMENT Surveillance TREATMENT HISTORY Adjuvant FOLFOX x12 completed December 17, 2017 SUBJECTIVE Patient came to the office for follow-up visit. He denies any diarrhea and constipation. No melena hematochezia. He has intentionally lost almost 19 pound weight. Denies any other new complaint. Review of system Constitutional: denies fevers, sweats, fatigue, malaise, 19 pound weight loss HEENT: denies sinus congestion, hearing or vision problems Respiratory: denies cough, dyspnea, wheeze Cardiovascular: denies chest pain, exertional chest pressure/discomfort, nausea, syncope, shortnessof breath GI: denies constipation, diarrhea, dsyphagia, reflux symptoms, vomiting, melena : denies dysuria, frequency, incontinence, urgency Integumentary system: no lymphadenopathy, sweats, flushing Musculoskeletal: denies: myalgia, arthralgia Neurological: denies blurry or disturbed vision, numbness/weakness, dizziness Skin: No lumps, bumps or rashes. 12 point review of system was reviewed Objective: Vital signs in last 24 hours: As per nursing note Exam: General appearance: alert, cooperative, no distress, appears stated age Head: normocephalic, without obvious abnormality, atraumatic Eyes: conjunctivae/corneas clear, EOM's intact Ears: normal external ear canals AU Nose: Nares normal. Septum midline. Mucosa normal. No drainage or sinus tenderness Throat: Lips, mucosa, and tongue normal. Teeth and gums normal Neck: supple, symmetrical, trachea midline. Lungs: clear to auscultation bilaterally Heart: regular rate and rhythm, S1, S2 normal, no murmur, click, rub or gallop Abdomen: soft, non-tender. Bowel sounds normal. No masses, No organomegaly Extremities: extremities normal, atraumatic, no cyanosis or edema Skin: Skin color, texture, turgor normal. No rashes or lesions Lymph nodes: No lymphadenopathy Neuro: No obvious focal deficit Exam as above PATH LABS Labs from September 17, 2019 showed total bilirubin 0.6 CEA 3.4 creatinine 0.7 WBC 5.5 hemoglobin 16.3 platelet 176,000. Labs from January 19 showed WBC 5.1 hemoglobin 15.3 platelet 167,000 CEA 3.3 total bilirubin 0.6 creatinine 0.7. Labs from July 26 showed hemoglobin 14.6 CEA 3.6 total bilirubin 0.6 Labs from February 07 showed creatinine 0.8 CEA 3.0 total bilirubin 0.5 hemoglobin 14.8 Labs from November 15 showed CEA 3.2 WBC 5.2 hemoglobin 16.1 creatinine 0.8 total bilirubin 0.6 Labs from November 15 showed WBC 6.5 hemoglobin 14.9 platelet 165,000 CEA 3.3 creatinine 0.9 total bilirubin 0.5 Labs from November 11 showed creatinine 0.8 total bilirubin 0.6 CEA 3.7 hemoglobin 15.1 Assessment: Plan: Patient Active Problem List Diagnosis Date Noted Malignant neoplasm of sigmoid colon 06/18/2017 T3 N0 M0 stage IIA adenocarcinoma of colon status post hand-assisted laparoscopic sigmoid colon resection on May 30, 2017. Status post adjuvant chemotherapy with FOLFOX regimen completed December. Clinically he remains asymptomatic. There is no evidence of relapse of disease on my examination. Labs including CEA stable. We will continue to see him back on yearly basis. Repeat colonoscopy will be done in May 2026. History of testicular cancer status post radiation and surgery in 2014. No evidence of relapse of disease. Peripheral neuropathy. Stable. Follow-up in 1 year. TOBACCO COUNSELING He is not a tobacco/nicotine user. 11/18/2023 Brock Gibbons MD E GROOVER documented in this encounter Plan of Treatment Upcoming Encounters Date Type Department Care Team (Late st Contact Info) Description 11/24/2025 2:15 PM BLADE GROOVER Office Visit [facility] [place] Oncology and Hematology [facility] [address] [place] [phone] Brock Gibbons MD [address] [facility] [address] [place] [address] documented as of this encounter Visit Diagnoses Diagnosis Malignant neoplasm of colon, unspecified part of colon- Primary documented in this encounter Care Teams Elevator Runner Relationship Specialty Start Date End Date Avinash Berg MD [address] [address] PCP - General Family Practice 06/13/17 documented as of this encounter
--- OUTSIDE RECORDS SUMMARY | 2024-11-23 10:34 | XMS_ITS | Encounter Summary ---
Author Organization [facility] Address [address] [place] [address] Care Team Providers Care Barge Master Name Role Phone Avinash Berg MD Primary Care Provider +1- [phone] Reason for Referral * Eval and Treat (Routine) - Closed Specialty Diagnoses / Procedures Referred By Contac t Referred To Contact Surgery Diagnoses Malignant neoplasm of sigmoid colon Brock Gibbons MD [address] [employer] [address] [place] [address] Mookie Enriquez DO [address] [facility] [address] [facility] [address] [place] [address] Referral ID Status Reason Start Date Expiration Date Visits Requested Visits Authorized [id number] Closed Ordering Department To Schedule 10/15/2018 10/15/2019 1 1 RAL DUTY NURSE Reason for Visit * Reason Comments Follow Up Results Encounter Details Date Type Department Care Team (Late st Contact Info) Description 10/15/2018 10:00 AM GENERAL DUTY NURSE Office Visit [facility] Oncology and Hematology - [place] [address] [place] [address] [address] [place] [address] Brock Gibbons MD [address] [employer] [address] [place] [address] Malignant neoplasm of sigmoid colon [...] Sign Reading Time Taken Comments Blood Pressure 105/74 10/15/2018 9:45 AM GENERAL DUTY NURSE Pulse 78 10/15/2018 9:45 AM GENERAL DUTY NURSE Temperature 36.7 ??C (98 ??F) 10/15/2018 9:45 AM GENERAL DUTY NURSE Respiratory Rate - - Oxygen Saturation 95% 10/15/2018 9:45 AM GENERAL DUTY NURSE Inhaled Oxygen Concentration - - Weight 93.1 kg (205 lb 3.2 oz) 10/15/2018 9:45 A M GENERAL DUTY NURSE Height 185.4 cm (6' 1 ) 10/15/2018 9:45 AM GENERAL DUTY NURSE Body Mass Index 27.07 10/15/2018 9:45 AM GENERAL DUTY NURSE documented in this encounter Progress Notes * Brock Gibbons MD - 10/15/2018 10:39 AM CST HEMATOLOGY / ONCOLOGY PROGRESS NOTE Patient Identification: Name: David Pan Age: 58 y.o. Sex: male : 1960 Subjective: HPI [...] and pelvis done on April 13, 2018. Colonoscopy was done on May 2018 came back unremarkable. Review of system Constitutional: No fever; no [...] slightly elevated CEA of 4.2. Platelet 180,000. Labs from October 05 showed W BC 5.8 hemoglobin 14.7 platelet 145,000 CEA 3.3. Assessment: Plan: Patient Active Problem List Diagnosis [...] showed no evidence of relapse of disease. PET scan was performed on July 2018 due to rising CEA came back negative. CEA level from September came down to 3.3. At this time I will send him for port removal. I will see him back in 4 monthswith repeat labs. Insomnia.Continue Ambien XR. Neuropathy. Stable. Thrombocytopenia secondary to chemotherapy. Platelet Count has improved. History of testicular cancer status post surgery and radiation therapy 3 years ago. Patient has been followed by Dr. Quang Farris. ? 10/15/2018 Brock Gibbons MD RAL DUTY NURSE documented in this encounter Plan of Treatment Upcoming Encounters Date Type Department Care Team (Late st Contact Info) Description 11/24/2025 2:15 PM GENERAL DUTY NURSE Office Visit [facility] Oncology and Hematology [facility] [address] [facility] [address] [place] [address] Brock Gibbons MD [address] [facility] [address] [place] [phone] Scheduled Referrals Name Type Priority Associated Diagnoses Order Schedule AMB REFERRAL TO COLORECTAL SURGERY Outpatient Referral Routine Malignant neoplasm of sigmoid colon Ordered: 10/15/2018 documented as of this encounter Results * COMPREHENSIVE METABOLIC PANEL (02/12/2019) Blood Brock Gibbons MD CHEMISTRY ORDERABLES EXTERNAL LAB * CEA (02/12/2019) Blood Brock Gibbons MD CHEMISTRY ORDERABLES Performing Organization Address [facility] de Phone Number EXTERNAL LAB * (ABNORMAL) CBC WITH DIFFERENTIAL (02/12/2019) Blood Brock Gibbnos MD HEMATOLOGY ORDERABLE S Performing Organization Address [facility] Co de Phone Number EXTERNAL LAB documented in this encounter Visit Diagnoses Diagnosis Malignant neoplasm of sigmoid colon- Primary documented in this encounter Care Teams Barge Master Relationship Specialty Start Date End Date Avinash Berg MD [address] [place] [phone] PCP - General Family Practice 06/13/17 documented as of this encounter
--- OUTSIDE RECORDS SUMMARY | 2024-11-23 10:34 | XMS_ITS | Encounter Summary ---
Author Organization [facility] Address [address] [place] [address] Care Team Providers Care Content Production Specialist Name Role Phone Avinash Berg MD Primary Care Provider +1- [phone] Encounter Details Date Type Department Care Team (Late Contact Info) Description 10/05/2018 Orders Only [facility] Oncology [facility] [address] [place] [address] Brock Gibbons MD [address] [employer] [address] [place] [address] Malignant neoplasm of sigmoid colon Social [...] (Late Contact Info) Description 11/24/2025 2:15 PM EDUCATION ADMINISTRATOR Office Visit [facility] Oncology [facility] [address] [place] [address] Brock Gibbons MD [address] [employer] [address] [place] [address] documented as of this encounter Procedures Procedure Name Priority Date/Time Associated Diagnosis Comments CBC WITH DIFFERENTIAL Routine 10/05/2018 Malignant neoplasm of sigmoid colon CEA Routine 10/05/2018 Malignant neoplasm of sigmoid colon COMPREHENSIVE METABOLIC PANEL Routine 10/05/2018 Malignant neoplasm of sigmoid colon documented in this encounter Results * CEA (10/05/2018) Blood Brock Gibbons MD CHEMISTRY ORDERABLES EXTERNAL LAB * COMPREHENSIVE METABOLIC PANEL (10/05/2018) Blood Brock Gibbons MD CHEMISTRY ORDERABLES EXTERNAL LAB * CBC WITH DIFFERENTIAL (10/05/2018) Blood Brock Gibbons MD HEMATOLOGY ORDERABLE S Performing Organization Address City/[facility]/ZIP Co de Phone Number EXTERNAL LAB documented in this encounter Visit Diagnoses Diagnosis Malignant neoplasm of sigmoid colon documented in this encounter Care Teams Content Production Specialist Relationship Specialty Start Date End Date Avinash Berg MD [address] [place] [phone] PCP - General Family Practice 06/13/17 documented as of this encounter
--- OUTSIDE RECORDS SUMMARY | 2024-11-23 10:34 | XMS_ITS | Encounter Summary ---
Author Organization [facility] [employer] [facility] Address [address] [place] [address] Care Team Providers Care Generator Operator Straight Bevel Gear Name Role Phone Avinash Berg MD Primary Care Provider +1- [phone] Reason for Visit * Reason Comments Follow Up [address] F/U with Labs Encounter Details Date Type Department Care Team (Late st Contact Info) Description 02/13/2021 2:45 PM CDT Office Visit [facility] Oncology and Hematology - Andre [address] [facility] [address] [address] Brock Gibbons MD [address] [facility] [address] [place] [address] Malignant neoplasm of colon, unspecified part of colon (Primary Dx); Carcinoma of testis, unspecified laterality Social History Tobacco Use Types Packs/Day Years [...] have Coronavirus / COVID-19? No / Unsure 02/13/2021 2:34 PM CDT documented as of this encounter Last Filed Vital Signs Vital Sign Reading Time Taken Comments Blood Pressure 161/98 02/13/2021 2:51 PM CDT Pulse 64 02/13/2021 2:51 PM CDT Temperature 36.7 ??C (98.1 ??F) 02/13/2021 2:51 PM CD T Respiratory Rate - - Oxygen Saturation 97% 02/13/2021 2:51 PM CDT Inhaled Oxygen Concentration - - Weight 92.4 kg (203 lb 9.6 oz) 02/13/2021 2:51 P M CDT Height 185.4 cm (6' 1 ) 02/13/2021 2:51 PM CDT Body Mass Index 26.86 02/13/2021 2:51 PM CDT documented in this encounter Progress Notes * Brock Gibbons MD - 02/13/2021 5:29 PM CDT HEMATOLOGY / ONCOLOGY PROGRESS NOTE Patient Identification: Name: David Pan Age: 60 y.o. Sex: male : 1960 DIAGNOSIS T3 N0 M0 stage IIA moderately differentiated adenocarcinoma of colon, K-tod wild type microsatellite stable tumor with pericolonic fat invasion status post laparoscopic sigmoid colon resection on May 30, 2017. CURRENT TREATMENT Surveillance TREATMENT HISTORY Adjuvant FOLFOX x12 completed December 17, 2017 SUBJECTIVE Patient came into the office for follow-up visit. He denies any diarrhea constipation. He has gained 5 pound weight. Denies any bleeding. No other new complaints. Review of system Constitutional: denies fevers, sweats, fatigue, malaise, weight loss HEENT: denies sinus congestion, hearing [...] lumps, bumps or rashes. 12 point review system was reviewed and as above Objective: Vital signs in last 24 hours: [...] No lymphadenopathy Neuro: No obvious focal deficit Examination as above PATH LABS Labs from September [...] CEA 3.0 total bilirubin 0.5 hemoglobin 14.8 Assessment: Plan: Patient Active Problem List Diagnosis Date Noted ??? Malignant neoplasm of sigmoid colon 06/18/2017 T3 N0 M0 stage IIA adenocarcinoma of colon status post hand-assisted laparoscopic sigmoid colon resection on May 30, 2017. Status post adjuvant chemotherapy with FOLFOX regimen completed December. CT scan of abdomen and pelvis done on January 24 showed no evidence of metastatic disease. Labs including CEA came back normal. I plan to see him back in 9 months. Patient is going to have colonoscopy in May 2021. History of testicular cancer status post radiation therapy and surgery in 2014. I will check tumor marker on next visit. No evidence of relapse of disease. Neuropathy. Stable. TOBACCO COUNSELING He is not a tobacco user. 02/13/2021 Brock Gibbons MD documented in this encounter Plan of Treatment Upcoming Encounters Date Type Department Care Team (Late st Contact Info) Description 11/24/2025 2:15 PM PRINT FINISHER Office Visit [facility] Oncology and Hematology [place] [address] [place] [phone] Brock Gibbons MD [address] [facility] [address] [place] [address] Scheduled Orders Name Type Priority Associated Diagnoses Orde r Schedule COMPREHENSIVE METABOLIC PANEL Lab Routine Malignant neoplasm of colon, unspecified part of colon Expected: 11/15/2021, Expires: 02/13/2022 CEA Lab Routine Malignant neoplasm of colon, unspecified part of colon Expected: 11/15/2021, Expires: 02/13/2022 ALPHA FETOPROTEIN TUMOR MARKER Lab Routine Carcinoma of testis, unspecified laterality Expected: 11/15/2021, Expires: 02/13/2022 HCG BETA TUMOR MARKER Lab Routine Carcinoma of testis, unspecified laterality Expected: 11/15/2021, Expires: 02/13/2022 documented as of this encounter Visit Diagnoses Diagnosis Malignant neoplasm of colon, unspecified part of colon- Primary Carcinoma of testis, unspecified laterality documented in this encounter Care Teams Generator Operator Straight Bevel Gear Relationship Specialty Start Date End Date Avinash Berg MD [address] [facility] [address] [place] [phone] PCP - General Family Practice 06/13/17 documented as of this encounter
--- OUTSIDE RECORDS SUMMARY | 2024-11-23 10:34 | XMS_ITS | Encounter Summary ---
Author Organization [facility] Address [address] [facility] Attn: [place] [address] Care Team Providers Care Machine Erector Name Role Phone Avinash Berg MD Primary Care Provider +- [phone] Encounter Details Date Type Department Care Team (Latest Contact Info) Description 08/01/2020 Travel Social History Tobacco Use Types Packs/Day [...] have Coronavirus / COVID-19? No / Unsure 08/01/2020 12:40 PM CDT documented as of this encounter Plan of Treatment Upcoming Encounters Date Type Department Care Team (Late st Contact Info) Description 11/24/2025 2:15 PM MECHANICAL DESIGNER Office Visit [facility] Oncology and Hematology - Andre [address] [facility] [address] [place] [address] Brock Gibbons MD [address] [facility] [address] [place] [address] documented as of this encounter Visit Diagnoses Not on filedocumented in this encounter Care Teams Machine Erector Relationship Specialty Start Date End Date Avinash Berg MD [address] [facility] [address] [place] [address] PCP - General Family Practice 06/13/17 documented as of this encounter
--- OUTSIDE RECORDS SUMMARY | 2024-11-23 10:34 | XMS_ITS | Encounter Summary ---
Author Organization [facility] Address [address] [place] [address] Care Team Providers Care Cath Lab Radiology Technician Name Role Phone Avinash Berg MD Primary Care Provider +1- [phone] Encounter Details Date Type Department Care Team (Late Contact Info) Description 07/09/2018 Orders Only [facility] Oncology and Hematology [facility] [address] [place] [address] Ondina Ferreira RN Malignant neoplasm [...] (Late Contact Info) Description 11/24/2025 2:15 PM TREE TAPPING LABORER Office Visit [facility] Oncology and [facility] [address] [place] [address] Brock Gibbons MD [address] [facility] [address] [place] [address] documented as of this encounter Procedures Procedure Name Priority Date/Time Associated Diagnosis Comments CEA Routine 07/14/2018 Malignant neoplasm of sigmoid colon COMPREHENSIVE METABOLIC PANEL Routine 07/14/2018 Malignant neoplasm of sigmoid colon CBC WITH DIFFERENTIAL Routine 07/10/2018 Malignant neoplasm of sigmoid colon documented in this encounter Results * COMPREHENSIVE METABOLIC PANEL (07/14/2018) Blood Brock Gibbons MD CHEMISTRY ORDERABLES Performing Organization Address City/[facility] Co de Phone Number EXTERNAL LAB * (ABNORMAL) CEA (07/14/2018) Blood Brock Gibbons MD CHEMISTRY ORDERABLES Performing Organization Address [facility] Co de Phone Number EXTERNAL LAB * CBC WITH DIFFERENTIAL (07/10/2018) Blood Brock Gibbons MD HEMATOLOGY ORDERABLE S Performing Organization Address [facility] Co de Phone Number EXTERNAL LAB documented in this encounter Visit Diagnoses Diagnosis Malignant neoplasm of sigmoid colon documented in this encounter Care Teams Cath Lab Radiology Technician Relationship Specialty Start Date End Date Avinash Berg MD [address] [place] [phone] PCP - General Family Practice 06/13/17 documented as of this encounter
--- OUTSIDE RECORDS SUMMARY | 2024-11-23 10:34 | XMS_ITS | Encounter Summary ---
Author Organization [facility] Address [address] [place] [address] Care Team Providers Care Transportation Maintenance Worker Name Role Phone Avinash Berg MD Primary Care Provider +1- [phone] Reason for Visit * Reason Onset Date Comments Results 03/03/2019 Encounter Details Date Type Department Care Team (Late st Contact Info) Description 03/03/2019 Telephone [facility] Oncology and Hematology - [place] [address] [facility] [address] [place] [address] Brock Gibbons MD [address] [facility] [address] [place] [address] Results Social History Tobacco Use Types Packs/Day Years Used Date Smoking Tobacco: Never Smokeless Tobacco: Never Alcohol Use Standard Drinks/Week Comments Not Asked 2 (1 standard drink = 0.6 oz pur e alcohol) occassional 2 Sex and Gender Information Value Date Recorded Sex Assigned at Not on file Gender Identity Not on file Sexual Orientation Not on file documented as of this encounter Miscellaneous Notes * Telephone Encounter - Ondina Ferreira RN - 03/03/2019 1:[address] Gibbons, pt notified that CT shows no evidence of cancer, but does show diverticulosis and hiatal hernia. Pt has had abd pain and constipation, PCP did change his diabetes rx which has helped some. Pt advised to seek medical attention with PCP if symptoms persist. Pt states he had colonoscopy few months ago. Ondina Ferreira RN documented in this encounter Plan of Treatment Upcoming Encounters Date Type Department Care Team (Late st Contact Info) Description 11/24/2025 2:15 PM AUTOMOTIVE WHOLESALE PARTS ADVISOR Office Visit [facility] Oncology and Hematology - [place] [address] [facility] [address] [place] [address] Brock Gibbons MD [address] [facility] [address] [place] [address] documented as of this encounter Visit Diagnoses Not on filedocumented in this encounter Care Teams Transportation Maintenance Worker Relationship Specialty Start Date End Date Avinash Berg MD [address] [facility] [address] [place] [address] PCP - General Family Practice 06/13/17 documented as of this encounter
--- OUTSIDE RECORDS SUMMARY | 2024-11-23 10:34 | XMS_ITS | Encounter Summary ---
Author Organization [facility] [employer] [facility] Address [address] [place] [address] Care Team Providers Care Litigation Attorney Name Role Phone Avinash Berg MD Primary Care Provider +1- [phone] Encounter Details Date Type Department Care Team (Late Contact Info) Description 01/20/2020 Orders Only [facility] Oncology and Hematology [facility] [address] [place] [address] Brock Gibbons MD [address] [employer] [address] [place] [address] Malignant neoplasm of colon, unspecified part [...] have Coronavirus / COVID-19? No / Unsure 01/24/2020 12:43 PM CDT documented as of this encounter Plan of Treatment Upcoming Encounters Date Type Department Care Team (Late Contact Info) Description 11/24/2025 2:15 PM PROCESS CHEMIST Office Visit [facility] Oncology and Hematology [address] [place] [address] Brock Gibbons MD [address] [place] [address] documented as of this encounter Procedures Procedure Name Priority Date/Time Associated Diagnosis Comments CT ABDOMEN PELVIS W CONTRAST Routine 01/20/2020 Malignant neoplasm of colon, unspecified part of colon CREATININE Routine 01/19/2020 documented in this encounter Results * CT ABDOMEN PELVIS W CONTRAST (01/20/2020) Anatomical Region Laterality Modality Abdomen Other Brock Gibbons MD CT ORDERABLES * CREATININE (01/19/2020) Blood Abstract Provider CHEMISTRY ORDERABLES NON [facility] documented in this encounter Visit Diagnoses Diagnosis Malignant neoplasm of colon, unspecified part of colon documented in this encounter Care Teams Litigation Attorney Relationship Specialty Start Date End Date Avinash Berg MD [address] [phone] PCP - General Family Practice 06/13/17 documented as of this encounter
--- OUTSIDE RECORDS SUMMARY | 2024-11-23 10:34 | XMS_ITS | Encounter Summary ---
Author Organization [facility] [employer] [facility] Address [address] [place] [address] Care Team Providers Care Rn Coronary Care Unit Name Role Phone Avinash Berg MD Primary Care Provider +1- [phone] Reason for Referral * Outpatient Services (Routine) - Closed Specialty Diagnoses / Procedures Referred By Contac t Referred To Contact Diagnoses Malignant neoplasm of colon, unspecified part of colon Procedures CT ABDOMEN PELVIS W CONTRAST Brock Gibbons MD [address] [email or web address] [address] [place] [phone] [address] Referral ID Status Reason Start Date Expiration Date V isits Requested Visits Authorized [id number] Closed [facility] CTS 01/02/2021 01/31/2021 1 1 Reason for Visit * Reason Comments Follow Up 6 month f/u w/labs Encounter Details Date Type Department Care Team (Late st Contact Info) Description 08/01/2020 1:00 PM CDT Office Visit [facility] Oncology and Hematology - Andre [address] [place] [address] [facility] [address] [place] [address] Brock Gibbons MD [address] [email or web address] [place] [address] Malignant neoplasm of colon, unspecified part [...] Sign Reading Time Taken Comments Blood Pressure 152/91 08/01/2020 1:00 PM CDT bp 160/94 hr 59 Pulse 59 08/01/2020 1:00 PM CDT Temperature 36.8 ??C (98.3 ??F) 08/01/2020 1 :00 PM CDT Respiratory Rate - - Oxygen Saturation 97% 08/01/2020 1:0 0 PM CDT Inhaled Oxygen Concentration - - Weight 88.1 kg (194 lb 4.8 oz) 08/01/2020 1:00 PM CDT Height 185.4 cm (6' 1 ) 08/01/2020 1:00 PM CDT Body Mass Index 25.63 08/01/2020 1:00 PM CDT documented in this encounter Progress Notes * Brock Gibbons MD - 08/01/2020 1:46 PM CDT HEMATOLOGY / ONCOLOGY PROGRESS NOTE Patient Identification: Name: David Pan Age: 59 y.o. Sex: male : 1960 DIAGNOSIS T3 N0 M0 stage IIA moderately differentiated adenocarcinoma of colon, K-tod wild type microsatellite stable tumor with pericolonic fat invasion status post laparoscopic sigmoid colon resection on May 30, 2017. CURRENT TREATMENT Surveillance TREATMENT HISTORY Adjuvant FOLFOX x12 completed December 17, 2017 SUBJECTIVE Patient came into the office for follow-up visit. He denies any chest pain and shortness of breath.Weight and appetite stable. No nausea vomiting. No diarrhea constipation. No melena hematochezia. No other new complaints. Review of system [...] hemoglobin 14.6 CEA 3.6 total bilirubin 0.6 Assessment: Plan: Patient Active Problem List Diagnosis Date Noted ??? Malignant neoplasm of sigmoid colon 06/18/2017 T3 N0 M0 stage IIA adenocarcinoma of colon status post hand-assisted laparoscopic sigmoid colon resection on May 30, 2017. Status post adjuvant chemotherapy with FOLFOX regimen completed December. Labs noted and stable. Repeat CT scan will be done in 6 months. Repeat colonoscopy will be done in May 2021. I plan to see him back in 6 months. History of testicular cancer. Status post surgery nutrition therapy in 2014. On patient request we will perform tumor marker testing next year. Patient was followed by Dr. Quang Duran previously. Neuropathy. Resolved. Thrombocytopenia. Resolved. TOBACCO COUNSELING He is not a tobacco user. 08/01/2020 Brock Gibbons MD documented in this encounter Plan of Treatment Upcoming Encounters Date Type Department Care Team (Late st Contact Info) Description 11/24/2025 2:15 PM DIE CLEANER Office Visit [facility] Oncology and Hematology - [place] [address] [facility] [address] [place] [phone] Brock Gibbons MD [address] [facility] [address] [place] [address] Scheduled Orders Name Type Priority Associated Diagnoses Orde r Schedule CBC WITH DIFFERENTIAL Lab Routine Malignant neoplasm of colon, unspecified part of colon Expected: 01/30/2021, Expires: 08/01/2021 COMPREHENSIVE METABOLIC PANEL Lab Routine Malignant neoplasm of colon, unspecified part of colon Expected: 01/30/2021, Expires: 08/01/2021 documented as of this encounter Results * CT ABDOMEN PELVIS W CONTRAST (01/24/2021) Anatomical Region Laterality Modality Abdomen Other Brock Gibbons MD CT ORDERABLES documented in this encounter Visit Diagnoses Diagnosis Malignant neoplasm of colon, unspecified part of colon- Primary documented in this encounter Care Teams Rn Coronary Care Unit Relationship Specialty Start Date End Date Avinash Berg MD [address] [facility] [address] [place] [address] PCP - General Family Practice 06/13/17 documented as of this encounter
--- OUTSIDE RECORDS SUMMARY | 2024-11-23 10:34 | XMS_ITS | Encounter Summary ---
Author Organization [facility] Address [address] [place] [address] Care Team Providers Care Print Binding Worker Name Role Phone Avinash Berg MD Primary Care Provider +1- [phone] Encounter Details Date Type Department Care Team (Late Contact Info) Description 12/17/2017 Orders Only [facility] Oncology and Hematology [facility] [address] [place] [address] Ondina Ferreira RN Malignant neoplasm [...] (Late Contact Info) Description 11/24/2025 2:15 PM MATHEMATICIAN Office Visit [facility] Oncology and Hematology [facility] [address] [place] [address] Brock Gibbons MD [address] [facility] [address] [place] [address] documented as of this encounter Procedures Procedure Name Priority Date/Time Associated Diagnosis Comments CBC WITH DIFFERENTIAL Stat 12/17/2017 Malignant neoplasm of sigmoid colon COMPREHENSIVE METABOLIC PANEL Routine 12/17/2017 Malignant neoplasm of sigmoid colon BASIC METABOLIC PANEL Routine 12/17/2017 Malignant neoplasm of sigmoid colon documented in this encounter Results * COMPREHENSIVE METABOLIC PANEL (12/17/2017) Blood Brock Gibbons MD CHEMISTRY ORDERABLES Performing Organization Address [facility] Co de Phone Number EXTERNAL LAB * CBC WITH DIFFERENTIAL (12/17/2017) Blood Brock Gibbons MD HEMATOLOGY ORDERABLE S Performing Organization Address [facility] Co de Phone Number EXTERNAL LAB * BASIC METABOLIC PANEL (12/17/2017) Blood Brock Gibbons MD CHEMISTRY ORDERABLES Performing Organization Address [facility] Co de Phone Number EXTERNAL LAB documented in this encounter Visit Diagnoses Diagnosis Malignant neoplasm of sigmoid colon documented in this encounter Care Teams Print Binding Worker Relationship Specialty Start Date End Date Avinash Berg MD [address] [place] [phone] PCP - General Family Practice 06/13/17 documented as of this encounter
--- OUTSIDE RECORDS SUMMARY | 2024-11-23 10:34 | XMS_ITS | Encounter Summary ---
Author Organization [facility] Address [address] [place] [address] Care Team Providers Care Pleating Supervisor Name Role Phone Avinash Berg MD Primary Care Provider +1- [phone] Encounter Details Date Type Department Care Team (Late st Contact Info) Description 04/13/2018 Orders Only [facility] Oncology and Hematology [facility] [address] [place] [address] Provider, Abstract NO ADDRESS ON [...] st Contact Info) Description 11/24/2025 2:15 PM STONEWORK TRACER Office Visit [facility] Oncology and [facility] [address] [place] [address] Brock Gibbons MD [address] [facility] [address] [place] [address] documented as of this encounter Procedures Procedure Name Priority Date/Time Associated Diagnosis Comments BUN/CREATININE RATIO Routine 04/13/2018 documented in this encounter Results * (ABNORMAL) BUN/CREATININE RATIO (04/13/2018) Blood Abstract Provider CHEMISTRY ORDERABLES [facility] documented in this encounter Visit Diagnoses Not on filedocumented in this encounter Care Teams Pleating Supervisor Relationship Specialty Start Date End Date Avinash Berg MD [address] [address] PCP - General Family Practice 06/13/17 documented as of this encounter
--- OUTSIDE RECORDS SUMMARY | 2024-11-23 10:34 | XMS_ITS | Encounter Summary ---
Author Organization [facility] Address [address] [place] [address] Care Team Providers Care Firearms Inspector Name Role Phone Avinash Berg MD Primary Care Provider +1- [phone] Encounter Details Date Type Department Care Team (Late Contact Info) Description 11/19/2017 Orders Only [facility] Oncology and Hematology [facility] [address] [place] [address] Ondina Ferreira RN Malignant neoplasm [...] (Late Contact Info) Description 11/24/2025 2:15 PM LEAD SHIPPER Office Visit [facility] Oncology and Hematology [facility] [address] [place] [address] Brock iGbbons MD [address] [facility] [address] [place] [address] documented as of this encounter Procedures Procedure Name Priority Date/Time Associated Diagnosis Comments CBC WITH DIFFERENTIAL Stat 11/19/2017 Malignant neoplasm of sigmoid colon BASIC METABOLIC PANEL Routine 11/19/2017 Malignant neoplasm of sigmoid colon documented in this encounter Results * (ABNORMAL) CBC WITH DIFFERENTIAL (11/19/2017) Blood Brock Gibbons MD HEMATOLOGY ORDERABLE S EXTERNAL LAB * BASIC METABOLIC PANEL (11/19/2017) Blood Brock Gibbons MD CHEMISTRY ORDERABLES Performing Organization Address City/[facility] Co de Phone Number EXTERNAL LAB documented in this encounter Visit Diagnoses Diagnosis Malignant neoplasm of sigmoid colon documented in this encounter Care Teams Firearms Inspector Relationship Specialty Start Date End Date Avinash Berg MD [address] [place] [phone] PCP - General Family Practice 06/13/17 documented as of this encounter
--- OUTSIDE RECORDS SUMMARY | 2024-11-23 10:34 | XMS_ITS | Encounter Summary ---
Author Organization [facility] Address [address] [facility] Attn: [place] [address] Care Team Providers Care Naprapath Name Role Phone Avinash Berg MD Primary Care Provider +- [phone] Encounter Details Date Type Department Care Team (Latest Contact Info) Description 02/13/2021 Travel Social History Tobacco Use Types Packs/Day [...] st Contact Info) Description 11/24/2025 2:15 PM MARINE OIL TERMINAL SUPERINTENDENT Office Visit [facility] Oncology and Hematology - Andre [address] [facility] [address] [place] [address] Brock Gibbons MD [address] [facility] [address] [place] [address] documented as of this encounter Visit Diagnoses Not on filedocumented in this encounter Care Teams Naprapath Relationship Specialty Start Date End Date Avinash Berg MD [address] [facility] [address] [place] [address] PCP - General Family Practice 06/13/17 documented as of this encounter
--- OUTSIDE RECORDS SUMMARY | 2024-11-23 10:34 | XMS_ITS | Encounter Summary ---
Author Organization [facility] Address [address] [facility] Attn: [place] [address] Care Team Providers Care Reporting Coordinator Name Role Phone Avinash Berg MD Primary Care Provider +1- [phone] Encounter Details Date Type Department Care Team (Latest Contact Info) Description 11/18/2022 Travel Social History Tobacco Use Types Packs/Day [...] Coronavirus/COVID-19? No / Unsure 11/18/2022 1:39 PM HOME STAGING SPECIALIST documented as of this encounter Plan of Treatment Upcoming Encounters Date Type Department Care Team (Late st Contact Info) Description 11/24/2025 2:15 PM HOME STAGING SPECIALIST Office Visit [facility] Oncology and Hematology - Andre [address] [facility] [address] [place] [address] Brock Gibbons MD [address] [facility] [address] [place] [address] documented as of this encounter Visit Diagnoses Not on filedocumented in this encounter Care Teams Reporting Coordinator Relationship Specialty Start Date End Date Avinash Berg MD [address] [facility] [address] [place] [phone] PCP - General Family Practice 06/13/17 documented as of this encounter
--- OUTSIDE RECORDS SUMMARY | 2024-11-23 10:34 | XMS_ITS | Encounter Summary ---
Author Organization [facility] Address [address] [place] [address] Care Team Providers Care Weight Count Operator Name Role Phone Avinash Berg MD Primary Care Provider +1- [phone] Reason for Visit * Reason Comments Follow Up Results Encounter Details Date Type Department Care Team (Late st Contact Info) Description 06/21/2019 3:45 PM CDT [facility] Oncology and Hematology - Andre [address] [facility] [address] [address] Brock Gibbons MD [address] [facility] [address] [place] [address] Malignant neoplasm of colon, unspecified [...] Sign Reading Time Taken Comments Blood Pressure 113/83 06/21/2019 3:43 PM CDT Pulse 58 06/21/2019 3:43 PM CDT Temperature 36.9 ??C (98.4 ??F) 06/21/2019 3:43 PM CD T Respiratory Rate - - Oxygen Saturation 97% 06/21/2019 3:43 PM CDT Inhaled Oxygen Concentration - - Weight 88.4 kg (194 lb 12.8 oz) 06/21/2019 3:43 PM CDT Height 185.4 cm (6' 1 ) 06/21/2019 3:43 PM CDT Body Mass Index 25.7 06/21/2019 3:43 PM CDT documented in this encounter Progress Notes * Brock Gibbons MD - 06/21/2019 4:34 PM CDT HEMATOLOGY / ONCOLOGY PROGRESS NOTE Patient Identification: Name: David Pan Age: 58 y.o. Sex: male : 1960 Subjective: HPI This is a pleasant 58-year-old male who was recently diagnosed to have early stage colon cancer when he presented with left lower quadrant pain started back in February 2017 along with bright red blood in the stool.patient had laparoscopic sigmoid colon resection done in May 2017. He received adjuvant chemotherapy with FOLFOX completed in December 2017. Patient came into the office for follow-up visit. He denies any chest pain abdominal pain. Denies any bleeding and bruising. No other new complaints today. Interval History: Patient completed last round of [...] no orthopnea; no PND; no DIAS GI: left lower quadrant abdominal pain; no nausea; no vomiting; no constipation, no hematochezia; no melena Musculosketetal: no bone pain; no arthralgia; no joint swelling; no myalgia; Neuro: No headache; no change in vision; complain of some numbness and tingling involving hands andfeet but remains stable, no muscle weakness; no confusion; no seizures Ext no edema 12 point review system was reviewed Objective: Vital signs in last 24 hours: As per nursing note Exam: Gen: NAD Lungs: Clear Cardiac: S1 and S2 without murmurs or gallops Abd: Soft, mild left lower quadrant tenderness, no hepatomegally, no masses Extr: No LE edema Examination as above Scheduled Meds:@MEDSSCHEDULED@ Continuous Infusions:@MEDSINFUSIONS@ Data Review: PATH [...] 5.8 hemoglobin 14.7 platelet 145,000 CEA 3.3. Labs from February 12 showed WBC 4.8 hemoglobin 15.1 platelet 160,000 CEA 2.9 PSA 0.9 Labs from June 10 showed WBC 5.0 hemoglobin 15.2 platelet 167,000 CEA 4.8 Assessment: Plan: Patient Active Problem List Diagnosis [...] chemotherapy with FOLFOX on December 17 2017. Labs reviewed with the patient that showed further elevation of CEA at 4.8. Clinically he remains asymptomatic. I will see him back in 3 months with repeat labs. Imaging studies will be done if he becomes symptomatic or further rising CEA. Neuropathy. Stable Thrombocytopenia resolved History of testicular cancer status post surgery and radiation therapy 2014. No evidence of relapseof disease. 06/21/2019 Brock Gibbons MD documented in this encounter Plan of Treatment Upcoming Encounters Date Type Department Care Team (Late st Contact Info) Description 11/24/2025 2:15 PM POLYSTYRENE MOLDING MACHINE TENDER Office Visit [facility] Oncology and Hematology [facility] [address] [facility] [address] [place] [address] Brock Gibbons MD [address] [facility] [address] [place] [address] Scheduled Orders Name Type Priority Associated Diagnoses Orde r Schedule CBC WITH DIFFERENTIAL Lab Routine Malignant neoplasm of colon, unspecified part of colon Expected: 09/13/2019, Expires: 06/20/2020 CEA Lab Routine Malignant neoplasm of colon, unspecified part of colon Expected: 09/13/2019, Expires: 06/20/2020 COMPREHENSIVE METABOLIC PANEL Lab Routine Malignant neoplasm of colon, unspecified part of colon Expected: 09/13/2019, Expires: 06/20/2020 documented as of this encounter Visit Diagnoses Diagnosis Malignant neoplasm of colon, unspecified part of colon- Primary documented in this encounter Care Teams Weight Count Operator Relationship Specialty Start Date End Date Avinash Berg MD [address] [facility] [address] [place] [address] PCP - General Family Practice 06/13/17 documented as of this encounter
--- OUTSIDE RECORDS SUMMARY | 2024-11-23 10:34 | XMS_ITS | Encounter Summary ---
Author Organization [facility] [employer] [facility] Address [address] [place] [address] Care Team Providers Care Blend Plant Operator Name Role Phone Avinash Berg MD Primary Care Provider +1- [phone] Encounter Details Date Type Department Care Team ([facility] Contact Info) Description 11/23/2021 Orders Only [facility] Oncology and Hematology [facility] [address] [place] [address] Shanna Santo Carcinoma of testis, unspecified laterality Social History [...] COVID-19? No / Unsure 11/19/2021 2:00 PM VICE PRESIDENT BUSINESS & CORPORATE DEVELOPMENT documented as of this encounter Plan of Treatment Upcoming Encounters Date Type Department Care Team (Late Contact Info) Description 11/24/2025 2:15 PM VICE PRESIDENT BUSINESS & CORPORATE DEVELOPMENT Office Visit [facility] Oncology and Hematology [facility] [address] [place] [address] Brock Gibbons MD [address] [facility] [address] [place] [address] documented as of this encounter Visit Diagnoses Diagnosis Carcinoma of testis, unspecified laterality documented in this encounter Care Teams Blend Plant Operator Relationship Specialty Start Date End Date Avinash Berg MD [address] [address] PCP - General Family Practice 06/13/17 documented as of this encounter
--- OUTSIDE RECORDS SUMMARY | 2024-11-23 10:34 | XMS_ITS | Encounter Summary ---
Author Organization [facility] Address [address] [place] [address] Care Team Providers Care Gold Marker Name Role Phone Avinash Berg MD Primary Care Provider +1- [phone] Encounter Details Date Type Department Care Team (Late Contact Info) Description 01/14/2018 Orders Only [facility] Oncology and Hematology [facility] [address] [place] [address] Ondina Ferreira RN Malignant neoplasm [...] (Late Contact Info) Description 11/24/2025 2:15 PM STEERSMAN Office Visit [facility] Oncology and [facility] [address] [place] [address] Brock Gibbons MD [address] [facility] [address] [place] [address] documented as of this encounter Procedures Procedure Name Priority Date/Time Associated Diagnosis Comments CEA Routine 01/16/2018 Malignant neoplasm of sigmoid colon COMPREHENSIVE METABOLIC PANEL Routine 01/16/2018 Malignant neoplasm of sigmoid colon CBC WITH DIFFERENTIAL Stat 01/14/2018 Malignant neoplasm of sigmoid colon documented in this encounter Results * (ABNORMAL) CEA (01/16/2018) Blood Brock Gibbons MD CHEMISTRY ORDERABLES Performing Organization Address City/[facility] Co de Phone Number EXTERNAL LAB * COMPREHENSIVE METABOLIC PANEL (01/16/2018) Blood Brock Gibbons MD CHEMISTRY ORDERABLES Performing Organization Address [facility] Co de Phone Number EXTERNAL LAB * (ABNORMAL) CBC WITH DIFFERENTIAL (01/14/2018) Blood Brock Gibbons MD HEMATOLOGY ORDERABLE S Performing Organization Address [facility] Co de Phone Number EXTERNAL LAB documented in this encounter Visit Diagnoses Diagnosis Malignant neoplasm of sigmoid colon documented in this encounter Care Teams Gold Marker Relationship Specialty Start Date End Date Avinash Berg MD [address] [place] [phone] PCP - General Family Practice 06/13/17 documented as of this encounter
--- OUTSIDE RECORDS SUMMARY | 2024-11-23 10:34 | XMS_ITS | Encounter Summary ---
Author Organization [facility] Address [address] Attn: [place] [address] Care Team Providers Care Associate Teacher Name Role Phone Avinash Berg MD Primary Care Provider +- [phone] Encounter Details Date Type Department Care Team (Latest Contact Info) Description 01/24/2020 Travel Social History Tobacco Use Types Packs/Day [...] st Contact Info) Description 11/24/2025 2:15 PM PHYSICIAN COMPENSATION ANALYST Office Visit [facility] Oncology and Hematology - Andre [address] [facility] [address] [place] [address] Brock Gibbons MD [address] [facility] [address] [place] [address] documented as of this encounter Visit Diagnoses Not on filedocumented in this encounter Care Teams Associate Teacher Relationship Specialty Start Date End Date Avinash Berg MD [address] [facility] [address] [place] [address] PCP - General Family Practice 06/13/17 documented as of this encounter"
--- OUTSIDE RECORDS SUMMARY | 2024-11-23 10:34 | XMS_ITS | Encounter Summary ---
Author Organization [facility] Address [address] [place] [address] Care Team Providers Care Fiberglass Quality Technician Name Role Phone Avinash Berg MD Primary Care Provider +1- [phone] Reason for Visit * Reason Comments Follow Up Encounter Details Date Type Department Care Team (Late st Contact Info) Description 12/17/2017 9:30 AM DIE EQUIPMENT OPERATOR Office Visit [facility] Oncology and Hematology - Shepherd [address] [facility] [address] [address] Brock Gibbons MD [address] [facility] [address] [place] [address] Malignant neoplasm of sigmoid colon [...] Sign Reading Time Taken Comments Blood Pressure 153/89 12/17/2017 9:16 AM DIE EQUIPMENT OPERATOR Pulse 72 12/17/2017 9:16 AM DIE EQUIPMENT OPERATOR Temperature 36.7 ??C (98 ??F) 12/17/2017 9:16 AM DIE EQUIPMENT OPERATOR Respiratory Rate - - Oxygen Saturation - - Inhaled Oxygen Concentration - - Weight 93.8 kg (206 lb 12.8 oz) 12/17/2017 9:16 AM DIE EQUIPMENT OPERATOR Height 185.4 cm (6' 1 ) 12/17/2017 9:16 AM DIE EQUIPMENT OPERATOR Body Mass Index 27.28 12/17/2017 9:16 AM DIE EQUIPMENT OPERATOR documented in this encounter Progress Notes * Brock Gibbons MD - 12/17/2017 9:54 AM CST HEMATOLOGY / ONCOLOGY PROGRESS NOTE [...] well from the surgery. Interval History: Patient received cycle 9 of chemotherapy with FOLFOX on October 22, 2017. He tolerated chemotherapy fairly well with occasional nausea. Denies any diarrhea and neuropathy. Review of system Constitutional: No fever; no [...] Neuro: No headache; no change in vision; started having some sensory changes; no muscle weakness; no confusion; no seizures Ext no edema Still complain of insomnia. Objective: Vital signs in last 24 hours: [...] 9.0 hemoglobin 15.3 platelet 81,000 creatinine 0.8. Assessment: Plan: Patient Active Problem List Diagnosis [...] pericolonic fat invasion and undetectable microsatellite instability. I have reviewed the labs. Patient had worsening of thrombocytopenia. Patient will receive cycle 12 of chemotherapy with FOLFOX regimen today. patient will complete chemotherapy today. I will see him back in one month. CT abdomen will be done in 3 months. Insomnia.Continue Ambien XR. Chemotherapy-induced neutropenia prophylaxis. Patient will receive Neulasta. I have instructed him to take Claritin for bone pain. Thrombocytopenia secondary to chemotherapy. Platelets are stable and proceed with chemotherapy. I will repeat CBC and CMP in 4 weeks. History of testicular cancer status post surgery and radiation therapy 2 years ago. Patient has been followed by Dr. Quang Farris. He is in remission. ? 12/17/2017 Brock Gibbons MD EQUIPMENT OPERATOR documented in this encounter Plan of Treatment Upcoming Encounters Date Type Department Care Team (Late st Contact Info) Description 11/24/2025 2:15 PM DIE EQUIPMENT OPERATOR Office Visit [facility] Oncology and Hematology [facility] [address] [facility] [address] [place] [address] Brock Gibbons MD [address] [facility] [address] [place] [address] documented as of this encounter Results * (ABNORMAL) CEA (01/16/2018) Blood Brock Gibbons MD CHEMISTRY ORDERABLES EXTERNAL LAB * COMPREHENSIVE METABOLIC PANEL (01/16/2018) Blood Brock Gibbons MD CHEMISTRY ORDERABLES Performing Organization Address City/[facility]/ZIP Co de Phone Number EXTERNAL LAB * (ABNORMAL) CBC WITH DIFFERENTIAL (01/14/2018) Blood Brock Gibbons MD HEMATOLOGY ORDERABLE S Performing Organization Address City/[facility] Co de Phone Number EXTERNAL LAB documented in this encounter Visit Diagnoses Diagnosis Malignant neoplasm of sigmoid colon- Primary documented in this encounter Care Teams Fiberglass Quality Technician Relationship Specialty Start Date End Date Avinash Berg MD [address] [facility] [address] [place] [address] PCP - General Family Practice 06/13/17 documented as of this encounter
--- OUTSIDE RECORDS SUMMARY | 2024-11-23 10:34 | XMS_ITS | Encounter Summary ---
Author Organization [facility] Address [address] [place] [address] Care Team Providers Care Coach Operator Name Role Phone Avinash Berg MD Primary Care Provider +1- [phone] Encounter Details Date Type Department Care Team (Late Contact Info) Description 06/11/2019 Orders Only [facility] Oncology and Hematology [facility] [address] [place] [address] Brock Gibbons MD [facility] [address] [place] [address] Malignant neoplasm of colon, unspecified part [...] st Contact Info) Description 11/24/2025 2:15 PM EDUCATION NURSE Office Visit [facility] Oncology and Hematology [place] [address] [address] [place] [address] Brock Gibbons MD [address] [place] [address] documented as of this encounter Procedures Procedure Name Priority Date/Time Associated Diagnosis Comments CBC WITH DIFFERENTIAL Routine 06/10/2019 Malignant neoplasm of colon, unspecified part of colon CEA Routine 06/10/2019 Malignant neoplasm of colon, unspecified part of colon COMPREHENSIVE METABOLIC PANEL Routine 06/10/2019 Malignant neoplasm of colon, unspecified part of colon documented in this encounter Results * (ABNORMAL) CEA (06/10/2019) Blood Brock Gibbons MD CHEMISTRY ORDERABLES Performing Organization Address [facility] [[email or web address]] Co de Phone Number EXTERNAL LAB * COMPREHENSIVE METABOLIC PANEL (06/10/2019) Blood Brock Gibbons MD CHEMISTRY ORDERABLES Performing Organization Address [facility] [[email or web address]] Co de Phone Number EXTERNAL LAB * CBC WITH DIFFERENTIAL (06/10/2019) Blood Brock Gibbons MD HEMATOLOGY ORDERABLE S Performing Organization Address [facility] [[email or web address]] Co de Phone Number EXTERNAL LAB documented in this encounter Visit Diagnoses Diagnosis Malignant neoplasm of colon, unspecified part of colon documented in this encounter Care Teams Coach Operator Relationship Specialty Start Date End Date Avinash Berg MD [address] [place] [phone] PCP - General Family Practice 06/13/17 documented as of this encounter
--- OUTSIDE RECORDS SUMMARY | 2024-11-23 10:34 | XMS_ITS | Encounter Summary ---
Author Organization [facility] Address [address] [place] [address] Care Team Providers Care Floor Layer Apprentice Name Role Phone Avinash Berg MD Primary Care Provider +1- [phone] Reason for Visit * Reason Comments Follow Up 4 month f/u CT & Lab s Encounter Details Date Type Department Care Team (Late st Contact Info) Description 01/24/2020 1:15 PM CDT Office Visit [facility] Oncology and Hematology - [place] [address] [place] [address] [address] Brock Gibbons MD [address] [facility] [address] [place] [address] Malignant neoplasm of colon, unspecified [...] Sign Reading Time Taken Comments Blood Pressure 126/73 01/24/2020 1:04 PM CDT Pulse 66 01/24/2020 1:04 PM CDT Temperature 36.7 ??C (98 ??F) 01/24/2020 1:04 PM CDT Respiratory Rate - - Oxygen Saturation 96% 01/24/2020 1:04 PM CDT Inhaled Oxygen Concentration - - Weight 93.6 kg (206 lb 6.4 oz) 01/24/2020 1:04 P M CDT Height 185.4 cm (6' 1 ) 01/24/2020 1:04 PM CDT Body Mass Index 27.23 01/24/2020 1:04 PM CDT documented in this encounter Progress Notes * Brock Gibbons MD - 01/24/2020 4:31 PM CDT HEMATOLOGY / ONCOLOGY PROGRESS NOTE Patient Identification: Name: David Pan Age: 59 y.o. Sex: male : 1960 DIAGNOSIS T3 N0 M0 stage IIA moderately differentiated adenocarcinoma of colon, K-tdo wild type microsatellite stable tumor with pericolonic fat invasion status post laparoscopic sigmoid colon resection on May 30, 2017. CURRENT TREATMENT Surveillance TREATMENT HISTORY Adjuvant FOLFOX x12 completed December 17, 2017 SUBJECTIVE Patient came into the office for follow-up visit. He denies any chest pain and shortness of breath.His weight and appetite stable. Denies any bleeding and bruising. Denies any melena and hematochezia. No other new complaints. Review of [...] CEA 3.3 total bilirubin 0.6 creatinine 0.7. Assessment: Plan: Patient Active Problem List Diagnosis Date Noted ??? Malignant neoplasm of sigmoid colon 06/18/2017 T3 N0 M0 stage IIA adenocarcinoma of colon status post hand-assisted laparoscopic sigmoid colon resection on May 30, 2017. Status post adjuvant chemotherapy with FOLFOX regimen completed December. CT chest done on January 19 showed no evidence of relapse of the disease. CEA also came back stable. I will see him back in 6 months with repeat labs. Neuropathy. Resolved Thrombocytopenia. Resolved History of testicular cancer status post surgery and radiation therapy in 2014. No evidence of relapse of disease. TOBACCO COUNSELING He is not a tobacco user. 01/24/2020 Brock Gibbons MD documented in this encounter Plan of Treatment Upcoming Encounters Date Type Department Care Team (Late st Contact Info) Description 11/24/2025 2:15 PM BALANCE WEIGHER Office Visit [facility] Oncology and Hematology - Andre [address] [facility] [address] [place] [address] Brock Gibbons MD [address] [facility] [address] [place] [address] Scheduled Orders Name Type Priority Associated Diagnoses Orde r Schedule CEA Lab Routine Malignant neoplasm of colon, unspecified part of colon Expected: 07/24/2020, Expires: 01/23/2021 documented as of this encounter Results * COMPREHENSIVE METABOLIC PANEL (07/26/2020) Blood Brock Gibbons MD CHEMISTRY ORDERABLES NON [email or web address] * CBC WITH DIFFERENTIAL (07/26/2020) Blood Brock Gibbons MD HEMATOLOGY ORDERABLE S Performing Organization Address City/[facility]/ZIP Co de Phone Number NON [employer] [facility] documented in this encounter Visit Diagnoses Diagnosis Malignant neoplasm of colon, unspecified part of colon- Primary documented in this encounter Care Teams Floor Layer Apprentice Relationship Specialty Start Date End Date Avinash Berg MD [address] [place] [address] PCP - General Family Practice 06/13/17 documented as of this encounter
--- OUTSIDE RECORDS SUMMARY | 2024-11-23 10:34 | XMS_ITS | Encounter Summary ---
Author Organization [facility] Address [address] [place] [address] Care Team Providers Care Obgyn Specialist Name Role Phone Avinash Berg MD Primary Care Provider +1- [phone] Encounter Details Date Type Department Care Team (Late Contact Info) Description 11/12/[address] [facility] Oncology and Hematology - Andre [facility] [address] [place] [address] Brock Gibbons MD [facility] [address] [place] [address] Social History Tobacco Use Types Packs/Day [...] (Late Contact Info) Description 11/24/2025 2:15 PM REHABILITATION PHYSICIAN Office Visit [facility] Oncology and Hematology - Andre [facility] [address] [place] [address] Brock Gibbons MD [facility] [address] [place] [address] documented as of this encounter Procedures Procedure Name Priority Date/Time Associated Diagnosis Comments CBC WITH DIFFERENTIAL Routine 11/12/2023 3:34 PM REHABILITATION PHYSICIAN documented in this encounter Results * CBC WITH DIFFERENTIAL (11/12/2023 3:34 PM REHABILITATION PHYSICIAN) Blood Brock Gibbons MD HEMATOLOGY ORDERABLE S documented in this encounter Visit Diagnoses Not on filedocumented in this encounter Care Teams Obgyn Specialist Relationship Specialty Start Date End Date Avinash Berg MD [address] [address] PCP - General Family Practice 06/13/17 documented as of this encounter
--- OUTSIDE RECORDS SUMMARY | 2024-11-23 10:34 | XMS_ITS | Encounter Summary ---
Author Organization [facility] Address [address] [place] [address] Care Team Providers Care Manager Employment Name Role Phone Aivnash Berg MD Primary Care Provider +1- [phone] Encounter Details Date Type Department Care Team (Late st Contact Info) Description 07/17/2018 Orders Only [facility] Oncology and Hematology [facility] [address] [place] [address] Provider, Abstract NO ADDRESS ON [...] st Contact Info) Description 11/24/2025 2:15 PM CPAS Office Visit [facility] Oncology and [facility] [address] [place] [address] Brock Gibbons MD [address] [facility] [employer] [address] [place] [address] documented as of this encounter Procedures Procedure Name Priority Date/Time Associated Diagnosis Comments COLONOSCOPY REPORT Routine 05/19/2018 documented in this encounter Results * COLONOSCOPY REPORT (05/19/2018) Abstract Provider GI PROCEDURE ORDERAB [facility] documented in this encounter Visit Diagnoses Not on filedocumented in this encounter Care Teams Manager Employment Relationship Specialty Start Date End Date Avinash Berg MD [address] [address] PCP - General Family Practice 06/13/17 documented as of this encounter
--- OUTSIDE RECORDS SUMMARY | 2024-11-23 10:34 | XMS_ITS | Encounter Summary ---
Author Organization [facility] [employer] [facility] Address [address] [place] [address] Care Team Providers Care Interventional Sale Consultant Name Role Phone Avinash Berg MD Primary Care Provider +1- [phone] Encounter Details Date Type Department Care Team ([facility] Contact Info) Description 11/19/2021 Orders Only [facility] Oncology and Hematology [facility] [address] [facility] [address] [place] [address] Shanna Santo Malignant neoplasm of colon, unspecified part of [...] COVID-19? No / Unsure 11/19/2021 2:00 PM SUPERVISOR FELTING documented as of this encounter Plan of Treatment Upcoming Encounters Date Type Department Care Team (Late st Contact Info) Description 11/24/2025 2:15 PM SUPERVISOR FELTING Office Visit [facility] Oncology and Hematology [facility] [address] [place] [address] Brock Gibbons MD [address] [facility] [address] [place] [address] documented as of this encounter Procedures Procedure Name Priority Date/Time Associated Diagnosis Comments CBC WITH DIFFERENTIAL Routine 11/15/2021 documented in this encounter Results * CBC WITH DIFFERENTIAL (11/15/2021) Blood Abstract Provider HEMATOLOGY ORDERABLE S documented in this encounter Visit Diagnoses Diagnosis Malignant neoplasm of colon, unspecified part of colon documented in this encounter Care Teams Interventional Sale Consultant Relationship Specialty Start Date End Date Avinash Berg MD [address] [address] PCP - General Family Practice 06/13/17 documented as of this encounter
--- OUTSIDE RECORDS SUMMARY | 2024-11-23 10:34 | XMS_ITS | Encounter Summary ---
Author Organization [facility] [employer] [facility] Address [address] [place] [address] Care Team Providers Care Equipment Technician Name Role Phone Avinash Berg MD Primary Care Provider +1- [phone] Encounter Details Date Type Department Care Team ([facility] Contact Info) Description 11/21/2021 Orders Only [facility] Oncology and Hematology [facility] [address] [place] [address] Shanna Santo Carcinoma of testis, [...] COVID-19? No / Unsure 11/19/2021 2:00 PM IN CLASS SPECIAL EDUCATION TEACHER documented as of this encounter Plan of Treatment Upcoming Encounters Date Type Department Care Team (Late Contact Info) Description 11/24/2025 2:15 PM IN CLASS SPECIAL EDUCATION TEACHER Office Visit [facility] Oncology and Hematology [facility] [address] [place] [address] Brock Gibbons MD [address] [facility] [address] [place] [address] documented as of this encounter Visit Diagnoses Diagnosis Carcinoma of testis, unspecified laterality documented in this encounter Care Teams Equipment Technician Relationship Specialty Start Date End Date Avinash Berg MD [address] [address] PCP - General Family Practice 06/13/17 documented as of this encounter
--- OUTSIDE RECORDS SUMMARY | 2024-11-23 10:34 | XMS_ITS | Encounter Summary ---
Author Organization [facility] Address [address] [place] [address] Care Team Providers Care Wire Puller Name Role Phone Avinash Berg MD Primary Care Provider +1- [phone] Encounter Details Date Type Department Care Team (Late Contact Info) Description 04/13/2018 Orders Only [facility] Oncology and Hematology [facility] [address] [place] [address] Ondina Ferreira RN Malignant neoplasm [...] (Late Contact Info) Description 11/24/2025 2:15 PM TILE GRINDER Office Visit [facility] Oncology and [facility] [address] [place] [address] Brock Gibbons MD [address] [facility] [address] [place] [address] documented as of this encounter Procedures Procedure Name Priority Date/Time Associated Diagnosis Comments CEA Routine 04/15/2018 Malignant neoplasm of sigmoid colon CBC WITH DIFFERENTIAL Routine 04/13/2018 Malignant neoplasm of sigmoid colon CT ABDOMEN PELVIS W CONTRAST Routine 04/13/2018 Malignant neoplasm of sigmoid colon COMPREHENSIVE METABOLIC PANEL Routine 04/13/2018 Malignant neoplasm of sigmoid colon documented in this encounter Results * (ABNORMAL) CEA (04/15/2018) Blood Brock Gibbons MD CHEMISTRY ORDERABLES Performing Organization Address City/[facility]/ZIP Co de Phone Number EXTERNAL LAB * COMPREHENSIVE METABOLIC PANEL (04/13/2018) Blood Brock Gibbons MD CHEMISTRY ORDERABLES EXTERNAL LAB * CBC WITH DIFFERENTIAL (04/13/2018) Blood Brock Gibbons MD HEMATOLOGY ORDERABLE S Performing Organization Address [facility] Co de Phone Number EXTERNAL LAB * CT ABDOMEN PELVIS W CONTRAST (04/13/2018) Anatomical Region Laterality Modality Abdomen Other Brock Gibbons MD CT ORDERABLES documented in this encounter Visit Diagnoses Diagnosis Malignant neoplasm of sigmoid colon documented in this encounter Care Teams Wire Puller Relationship Specialty Start Date End Date Avinash Berg MD [address] [place] [phone] PCP - General Family Practice 06/13/17 documented as of this encounter
--- OUTSIDE RECORDS SUMMARY | 2024-11-23 10:34 | XMS_ITS | Encounter Summary ---
Author Organization [facility] Address [address] [place] [address] Care Team Providers Care Thermodynamics Teacher Name Role Phone Avinash Berg MD Primary Care Provider +1- [phone] Reason for Referral * Outpatient Services (Routine) - Closed Specialty Diagnoses / Procedures Referred By Contac t Referred To Contact Diagnoses Malignant neoplasm of sigmoid colon Procedures CT ABDOMEN PELVIS W CONTRAST Brock Gibbons MD [address] [place] [address] [place] [id number] [place] [address] Referral ID Status Reason Start Date Expiration Date Visits Requested Visits Authorized [id number] Closed Ordering Department To Schedule 03/23/2018 05/07/2018 1 1 OPERATOR Reason for Visit * Reason Comments Follow Up Encounter Details Date Type Department Care Team (Late st Contact Info) Description 01/14/2018 9:15 AM FARM OPERATOR Office Visit [facility] Oncology and Hematology [facility] [address] [facility] [address] [place] [address] Brock Gibbons MD [address] [place] [address] Malignant neoplasm of sigmoid colon [...] Sign Reading Time Taken Comments Blood Pressure 142/95 01/14/2018 9:13 AM FARM OPERATOR Pulse 68 01/14/2018 9:13 AM FARM OPERATOR Temperature 36.8 ??C (98.2 ??F) 01/14/2018 9:13 AM CS T Respiratory Rate 16 01/14/2018 9:13 AM FARM OPERATOR Oxygen Saturation 94% 01/14/2018 9:13 AM FARM OPERATOR Inhaled Oxygen Concentration - - Weight 93.4 kg (206 lb) 01/14/2018 9:13 AM FARM OPERATOR Height 185.4 cm (6' 1 ) 01/14/2018 9:13 AM FARM OPERATOR Body Mass Index 27.18 01/14/2018 9:13 AM FARM OPERATOR documented in this encounter Progress Notes * Brock Gibbons MD - 01/14/2018 10:12 AM CST HEMATOLOGY / ONCOLOGY PROGRESS NOTE [...] chemotherapy with FOLFOX on December 17, 2017. Review of system Constitutional: No fever; no [...] 3.7 hemoglobin 15.3 platelet 134,000 creatinine 0.8. Assessment: Plan: Patient Active Problem [...] with FOLFOX on December 17 2017. Labs remainstable. I will see him back in 3 months with repeat labs and CT scan of abdomen and pelvis. Patientis going to have another colonoscopy before May 2018. Insomnia.Continue Ambien XR. Chemotherapy-induced neutropenia prophylaxis. Patient will receive Neulasta. I have instructed him to take Claritin for bone pain. Thrombocytopenia secondary to chemotherapy. Platelet count has much improved now. History of testicular cancer status post surgery and radiation therapy 2 years ago. Patient has been followed by Dr. Quang Farris. He is in remission. ? 01/14/2018 Brock Gibbons MD OPERATOR documented in this encounter Plan of Treatment Upcoming Encounters Date Type Department Care Team (Late st Contact Info) Description 11/24/2025 2:15 PM FARM OPERATOR Office Visit [facility] Oncology and Hematology [facility] [address] [facility] [address] [place] [address] Brock Gibbons MD [address] [facility] [address] [place] [address] documented as of this encounter Results * (ABNORMAL) CEA (04/15/2018) Blood Brock Gibbons MD CHEMISTRY ORDERABLES Performing Organization Address [facility] Co de Phone Number EXTERNAL LAB * COMPREHENSIVE METABOLIC PANEL (04/13/2018) Blood Brock Gibbons MD CHEMISTRY ORDERABLES Performing Organization Address City/[facility]/ZIP Co de Phone Number EXTERNAL LAB * CBC WITH DIFFERENTIAL (04/13/2018) Blood Brock Gibbons MD HEMATOLOGY ORDERABLE S Performing Organization Address City/[facility]/ZIP Co de Phone Number EXTERNAL LAB * CT ABDOMEN PELVIS W CONTRAST (04/13/2018) Anatomical Region Laterality Modality Abdomen Other Brock Gibbons MD CT ORDERABLES documented in this encounter Visit Diagnoses Diagnosis Malignant neoplasm of sigmoid colon- Primary documented in this encounter Care Teams Thermodynamics Teacher Relationship Specialty Start Date End Date Avinash Berg MD [address] [address] PCP - General Family Practice 06/13/17 documented as of this encounter
--- OUTSIDE RECORDS SUMMARY | 2024-11-23 10:34 | XMS_ITS | Encounter Summary ---
Author Organization [facility] Address [address] [place] [address] Care Team Providers Care Labor Mediator Name Role Phone Avinash Berg MD Primary Care Provider +1- [phone] Reason for Visit * Reason Onset Date Comments Colonoscopy 05/22/2018 Encounter Details Date Type Department Care Team ([facility] Contact Info) Description 05/22/2018 Telephone [facility] Oncology and Hematology - [place] [address] [facility] [address] [place] [address] Brock Gibbons MD [address] [facility] [address] [place] [address] Colonoscopy Social History Tobacco Use Types Packs/Day Years [...] Telephone Encounter - Ondina Ferreira RN - 05/22/2018 11:34 AM CDT Pt called to report he had colonoscopy this past week per Dr. Bravo [phone]. Office called, will fax report after signed by MD. Ondina Ferreira RN documented in this encounter Plan of Treatment Upcoming Encounters Date Type Department Care Team ([facility] Contact Info) Description 11/24/2025 2:15 PM FURNACE CONVERTER Office Visit [facility] Oncology and Hematology - [place] [address] [facility] [address] [place] [address] Brock Gibbons MD [address] [facility] [address] [place] [address] documented as of this encounter Visit Diagnoses Not on filedocumented in this encounter Care Teams Labor Mediator Relationship Specialty Start Date End Date Avinash Berg MD [address] [facility] [address] [place] [phone] PCP - General Family Practice 06/13/17 documented as of this encounter
--- OUTSIDE RECORDS SUMMARY | 2024-11-23 10:34 | XMS_ITS | Encounter Summary ---
Author Organization [facility] Address [address] [place] [address] Care Team Providers Care Outpatient Phlebotomist Name Role Phone Avinash Berg MD Primary Care Provider +1- [phone] Reason for Referral * Outpatient Services (Routine) - Closed Specialty Diagnoses / Procedures Referred By Contac t Referred To Contact Diagnoses Malignant neoplasm of colon, unspecified part of colon Procedures CT ABDOMEN PELVIS W CONTRAST Brock Gibbons MD [email or web address] [address] [address] Referral ID Status Reason Start Date Expiration Date Visits Requested Visits Authorized [id number] Closed Ordering Department To Schedule 12/27/2019 01/25/2020 1 1 GENCY PLANNING AND RESPONSE MANAGER Reason for Visit * Reason Comments Follow Up 3 month f/u Encounter Details Date Type Department Care Team (Late st Contact Info) Description 09/23/2019 2:15 PM EMERGENCY PLANNING AND RESPONSE MANAGER Office Visit [facility] Oncology and Hematology - [place] [address] [place] [address] [address] Brock Gibbons MD [email or web address] [place] [address] Malignant neoplasm of colon, unspecified part [...] Sign Reading Time Taken Comments Blood Pressure 139/90 09/23/2019 2:00 PM EMERGENCY PLANNING AND RESPONSE MANAGER Pulse 71 09/23/2019 2:00 PM EMERGENCY PLANNING AND RESPONSE MANAGER Temperature 36.7 ??C (98 ??F) 09/23/2019 2:00 PM EMERGENCY PLANNING AND RESPONSE MANAGER Respiratory Rate - - Oxygen Saturation 96% 09/23/2019 2:00 PM EMERGENCY PLANNING AND RESPONSE MANAGER Inhaled Oxygen Concentration - - Weight - - Height - - Body Mass Index - - documented in this encounter Progress Notes * Brock Gibbons MD - 09/23/2019 5:30 PM CST HEMATOLOGY / ONCOLOGY PROGRESS NOTE Patient Identification: Name: David Pan Age: 59 y.o. Sex: male : 1960 DIAGNOSIS T3 N0 M0 stage IIA moderately differentiated adenocarcinoma of colon, K-tod wild type microsatellite stable tumor with pericolonic fat invasion status post laparoscopic sigmoid colon resection on May 30, 2017. CURRENT TREATMENT Expectant TREATMENT HISTORY Adjuvant FOLFOX x12 completed December 17, 2017 SUBJECTIVE Patient came into the office for follow-up visit. He denies any diarrhea and constipation. Denies any bleeding and bruising. Weight and appetite are stable. No other new complaints. Review of system [...] dizziness Skin: No lumps, bumps or rashes. Objective: Vital signs in last 24 hours: [...] No lymphadenopathy Neuro: No obvious focal deficit PATH LABS Labs from September 17, 2019 showed total bilirubin 0.6 CEA 3.4 creatinine 0.7 WBC 5.5 hemoglobin 16.3 platelet 176,000. @IMAGEIMP@ Assessment: Plan: Patient Active Problem List Diagnosis Date Noted ??? Malignant neoplasm of sigmoid colon 06/18/2017 T3 N0 M0 stage IIA adenocarcinoma of colon status post hand-assisted laparoscopic sigmoid colon resection on May 30, 2017. Status post adjuvant chemotherapy with FOLFOX regimen completed December. There is no evidence of relapse of the disease on my examination. Labs showed slightly elevated CEAlevel. Patient had surveillance colonoscopy done in May 2018 came back unremarkable. I will see him back in [address] abdomen and pelvis. Neuropathy. Resolved Thrombocytopenia resolved History of testicular cancer status post surgery and radiation therapy in 2014. No evidence of relapse of disease. ? TOBACCO COUNSELING He is not a tobacco user. 09/23/2019 Brock Gibbons MD GENCY PLANNING AND RESPONSE MANAGER documented in this encounter Plan of Treatment Upcoming Encounters Date Type Department Care Team (Late st Contact Info) Description 11/24/2025 2:15 PM EMERGENCY PLANNING AND RESPONSE MANAGER Office Visit [facility] Oncology and Hematology - [place] [address] [facility] [address] [place] [address] Brock Gibbons MD [address] [facility] [address] [place] [address] Scheduled Orders Name Type Priority Associated Diagnoses Orde r Schedule CEA Lab Routine Malignant neoplasm of colon, unspecified part of colon Expected: 01/13/2020, Expires: 09/22/2020 COMPREHENSIVE METABOLIC PANEL Lab Routine Malignant neoplasm of colon, unspecified part of colon Expected: 01/13/2020, Expires: 09/22/2020 documented as of this encounter Results * CBC WITH DIFFERENTIAL (01/20/2020) Blood Brock Gibbons MD HEMATOLOGY ORDERABLE S EXTERNAL LAB * CT ABDOMEN PELVIS W CONTRAST (01/20/2020) Anatomical Region Laterality Modality Abdomen Other Brock Gibbons MD CT ORDERABLES documented in this encounter Visit Diagnoses Diagnosis Malignant neoplasm of colon, unspecified part of colon- Primary documented in this encounter Care Teams Outpatient Phlebotomist Relationship Specialty Start Date End Date Avinash Berg MD [address] [place] [phone] PCP - General Family Practice 06/13/17 documented as of this encounter
--- OUTSIDE RECORDS SUMMARY | 2024-11-23 10:34 | XMS_ITS | Encounter Summary ---
Author Organization [facility] [employer] [facility] Address [address] [place] [address] Care Team Providers Care Semiconductor Bonder Name Role Phone Avinash Berg MD Primary Care Provider +1- [phone] Encounter Details Date Type Department Care Team (Late Contact Info) Description 07/25/[address] [facility] Oncology and Hematology [facility] [address] [place] [address] Shanna Bryan RN Malignant neoplasm [...] (Late Contact Info) Description 11/24/2025 2:15 PM ACCOUNTING MANAGER Office Visit [facility] Oncology and Hematology [facility] [address] [place] [address] Brock Gibbons MD [address] [facility] [address] [place] [address] documented as of this encounter Procedures Procedure Name Priority Date/Time Associated Diagnosis Comments CBC WITH DIFFERENTIAL Routine 07/26/2020 Malignant neoplasm of colon, unspecified part of colon COMPREHENSIVE METABOLIC PANEL Routine 07/26/2020 Malignant neoplasm of colon, unspecified part of colon documented in this encounter Results * CBC WITH DIFFERENTIAL (07/26/2020) Blood Brock Gibbons MD HEMATOLOGY ORDERABLE S Performing Organization Address City/[facility] Co de Phone Number NON [facility] LAB * COMPREHENSIVE METABOLIC PANEL (07/26/2020) Blood Brock Gibbons MD CHEMISTRY ORDERABLES Performing Organization Address City/[facility] Co de Phone Number NON [facility] LAB documented in this encounter Visit Diagnoses Diagnosis Malignant neoplasm of colon, unspecified part of colon documented in this encounter Care Teams Semiconductor Bonder Relationship Specialty Start Date End Date Avinash Berg MD [address] [place] [phone] PCP - General Family Practice 06/13/17 documented as of this encounter
--- OUTSIDE RECORDS SUMMARY | 2024-11-23 10:34 | XMS_ITS | Encounter Summary ---
Author Organization [facility] Address [address] [place] [address] Care Team Providers Care Drafter Landscape Name Role Phone Avinash Berg MD Primary Care Provider +1- [phone] Encounter Details Date Type Department Care Team (Late Contact Info) Description 12/03/2017 Orders Only [facility] Oncology and Hematology [facility] [address] [place] [address] Ondina Ferreira RN Malignant neoplasm [...] (Late Contact Info) Description 11/24/2025 2:15 PM ASSISTANT CORPORATE SECRETARY Office Visit [facility] Oncology and Hematology [facility] [address] [place] [address] Brock Gibbons MD [address] [facility] [address] [place] [address] documented as of this encounter Procedures Procedure Name Priority Date/Time Associated Diagnosis Comments CBC WITH DIFFERENTIAL Stat 12/03/2017 Malignant neoplasm of sigmoid colon COMPREHENSIVE METABOLIC PANEL Routine 12/03/2017 Malignant neoplasm of sigmoid colon documented in this encounter Results * COMPREHENSIVE METABOLIC PANEL (12/03/2017) Blood Brock Gibbons MD CHEMISTRY ORDERABLES EXTERNAL LAB * CBC WITH DIFFERENTIAL (12/03/2017) Blood Brock Gibbons MD HEMATOLOGY ORDERABLE S Performing Organization Address City/[facility] Co de Phone Number EXTERNAL LAB documented in this encounter Visit Diagnoses Diagnosis Malignant neoplasm of sigmoid colon documented in this encounter Care Teams Drafter Landscape Relationship Specialty Start Date End Date Avinash Berg MD [address] [place] [phone] PCP - General Family Practice 06/13/17 documented as of this encounter
--- OUTSIDE RECORDS SUMMARY | 2024-11-23 10:34 | XMS_ITS | Encounter Summary ---
Author Organization [facility] Address [address] [place] [address] Care Team Providers Care Automatic Driller And Reamer Name Role Phone Avinash Berg MD Primary Care Provider +1- [phone] Reason for Referral * Outpatient Services (Routine) - Closed Specialty Diagnoses / Procedures Referred By Contac t Referred To Contact Diagnoses Malignant neoplasm of colon, unspecified part of colon Procedures CT ABDOMEN PELVIS W CONTRAST Brock Gibbons MD [address] [place] [phone] [address] Referral ID Status Reason Start Date Expiration Date Visits Requested Visits Authorized [id number] Closed Ordering Department To Schedule 02/22/2019 03/23/2019 1 1 Reason for Visit * Reason Comments Follow Up 4 month f/u with lab s Encounter Details Date Type Department Care Team (Late st Contact Info) Description 02/18/2019 10:00 AM CDT Office Visit [facility] Oncology and Hematology - [place] [address] [place] [address] [facility] [address] [place] [address] Brock Gibbons MD [address] [place] [address] Malignant neoplasm of colon, unspecified [...] Sign Reading Time Taken Comments Blood Pressure 96/68 02/18/2019 9:57 AM CDT Pulse 80 02/18/2019 9:57 AM CDT Temperature 36.7 ??C (98.1 ??F) 02/18/2019 9:57 AM CD T Respiratory Rate - - Oxygen Saturation 95% 02/18/2019 9:57 AM CDT Inhaled Oxygen Concentration - - Weight 91.2 kg (201 lb 1.6 oz) 02/18/2019 9:57 A M CDT Height 185.4 cm (6' 1 ) 02/18/2019 9:57 AM CDT Body Mass Index 26.53 02/18/2019 9:57 AM CDT documented in this encounter Progress Notes * Brock Gibbons MD - 02/18/2019 10:30 AM CDT HEMATOLOGY / ONCOLOGY PROGRESS NOTE [...] chemotherapy with FOLFOX completed in December 2017. He is in the office today for follow-up visit. He complains of off and on left lower quadrant pain.Otherwise he is doing fine without any bleeding. His weight remains stable. Interval History: Patient completed last round of [...] seizures Ext no edema 12 point review of system was reviewed. Objective: Vital signs in last 24 hours: As per nursing note Exam: Gen: NAD Lungs: Clear Cardiac: S1 and S2 without murmurs or gallops Abd: Soft, mild left lower quadrant tenderness, no hepatomegally, no masses Extr: No LE edema Examination as above. Scheduled Meds:@[email or web address]@ Continuous Infusions:@MEDSINFUSIONS@ Data Review: PATH [...] 15.1 platelet 160,000 CEA 2.9 PSA 0.9 Assessment: Plan: Patient Active Problem List Diagnosis [...] chemotherapy with FOLFOX on December 17 2017. He now complains of left lower quadrant abdominal pain off and on since November 2018. I will order CT scan of the abdomen and pelvis. Labs reviewed the patient came back is stable. I otherwise we'll see him back in 4 months. Neuropathy. Stable. Patient does not need any treatment. Thrombocytopenia secondary to chemotherapy. Platelet count has been normalized. History of testicular cancer status post surgery and radiation therapy in 2014. I will order CT abdomen and pelvis now. TOBACCO COUNSELING He is not a tobacco user. 02/18/2019 Brock Gibbons MD documented in this encounter Plan of Treatment Upcoming Encounters Date Type Department Care Team (Late st Contact Info) Description 11/24/2025 2:15 PM SEARCH MANAGER Office Visit [facility] Oncology and Hematology [facility] [address] [facility] [address] [place] [address] Brock Gibbons MD [address] [facility] [address] [place] [address] documented as of this encounter Results * CBC WITH DIFFERENTIAL (06/10/2019) Blood Brock Gibbons MD HEMATOLOGY ORDERABLE S EXTERNAL LAB * COMPREHENSIVE METABOLIC PANEL (06/10/2019) Blood Brock Gibbons MD CHEMISTRY ORDERABLES EXTERNAL LAB * (ABNORMAL) CEA (06/10/2019) Blood Brock Gibbons MD CHEMISTRY ORDERABLES Performing Organization Address City/[facility]/ZIP Co de Phone Number EXTERNAL LAB * CT ABDOMEN PELVIS W CONTRAST (02/25/2019) Anatomical Region Laterality Modality Abdomen Other Brock Gibbons MD CT ORDERABLES documented in this encounter Visit Diagnoses Diagnosis Malignant neoplasm of colon, unspecified part of colon- Primary documented in this encounter Care Teams Automatic Driller And Reamer Relationship Specialty Start Date End Date Avinash Berg MD [address] [place] [phone] PCP - General Family Practice 06/13/17 documented as of this encounter
--- OUTSIDE RECORDS SUMMARY | 2024-11-23 10:34 | XMS_ITS | Encounter Summary ---
Author Organization [facility] [employer] Address [address] [place] [address] Care Team Providers Care Buckle Attaching Machine Operator Name Role Phone Avinash Berg MD Primary Care Provider +1- [phone] Encounter Details Date Type Department Care Team (Late Contact Info) Description 01/18/2020 Orders Only [facility] Oncology and Hematology [facility] [address] [place] [address] Brock Gibbons MD [facility] [address] [place] [address] Malignant neoplasm of colon, unspecified part [...] st Contact Info) Description 11/24/2025 2:15 PM IT LEAD Office Visit [facility] Oncology and Hematology [place] [address] [place] [address] Brock Gibbons MD [address] [place] [address] documented as of this encounter Procedures Procedure Name Priority Date/Time Associated Diagnosis Comments CBC WITH DIFFERENTIAL Routine 01/20/2020 Malignant neoplasm of colon, unspecified part of colon documented in this encounter Results * CBC WITH DIFFERENTIAL (01/20/2020) Blood Brock Gibbons MD HEMATOLOGY ORDERABLE S EXTERNAL LAB documented in this encounter Visit Diagnoses Diagnosis Malignant neoplasm of colon, unspecified part of colon documented in this encounter Care Teams Buckle Attaching Machine Operator Relationship Specialty Start Date End Date Avinash Berg MD [address] [phone] PCP - General Family Practice 06/13/17 documented as of this encounter
--- OUTSIDE RECORDS SUMMARY | 2024-11-23 10:34 | XMS_ITS | Encounter Summary ---
Author Organization [facility] Address [address] [place] [address] Care Team Providers Care Telecommunications Sales Representative Name Role Phone Avinash Berg MD Primary Care Provider +1- [phone] Reason for Visit * Reason Comments Follow Up 9 month f/u with lab s Encounter Details Date Type Department Care Team (Late st Contact Info) Description 11/19/2021 2:15 PM EXTRUSION TECHNICIAN Office Visit [facility] Oncology and Hematology - [place] [address] [place] [address] [address] Brock Gibbons MD [address] [facility] [address] [place] [address] Malignant neoplasm of colon, unspecified [...] COVID-19? No / Unsure 11/19/2021 2:00 PM EXTRUSION TECHNICIAN documented as of this encounter Last Filed Vital Signs Vital Sign Reading Time Taken Comments Blood Pressure 132/76 11/19/2021 2:09 PM EXTRUSION TECHNICIAN Pulse 89 11/19/2021 2:09 PM EXTRUSION TECHNICIAN Temperature 36.6 ??C (97.8 ??F) 11/19/2021 2:09 PM CS T Respiratory Rate - - Oxygen Saturation 78% 11/19/2021 2:09 PM EXTRUSION TECHNICIAN Inhaled Oxygen Concentration - - Weight 92.4 kg (203 lb 11.2 oz) 11/19/2021 2:09 PM EXTRUSION TECHNICIAN Height 185.4 cm (6' 1 ) 11/19/2021 2:09 PM EXTRUSION TECHNICIAN Body Mass Index 26.87 11/19/2021 2:09 PM EXTRUSION TECHNICIAN documented in this encounter Progress Notes * Brock Gibbons MD - 11/19/2021 3:34 PM CST HEMATOLOGY / ONCOLOGY PROGRESS NOTE Patient Identification: Name: David Pan Age: 61 y.o. Sex: male : 1960 DIAGNOSIS T3 N0 M0 stage IIA moderately differentiated adenocarcinoma of colon, K-tod wild type microsatellite stable tumor with pericolonic fat invasion status post laparoscopic sigmoid colon resection on May 30, 2017. CURRENT TREATMENT Surveillance TREATMENT HISTORY Adjuvant FOLFOX x12 completed December 17, 2017 SUBJECTIVE Patient came to the office for follow-up visit. He denies any chest pain and abdominal pain. No bleeding and bruising. Weight and appetite stable. No other new complaints. Review of [...] hemoglobin 16.1 creatinine 0.8 total bilirubin 0.6 Assessment: Plan: Patient Active Problem List Diagnosis Date Noted ??? Malignant neoplasm of sigmoid colon 06/18/2017 T3 N0 M0 stage IIA adenocarcinoma of colon status post hand-assisted laparoscopic sigmoid colon resection on May 30, 2017. Status post adjuvant chemotherapy with FOLFOX regimen completed December. Patient is asymptomatic. Labs including CEA came back stable. He had colonoscopy done in May 2021 that showed no evidence of relapse of disease. Repeat colonoscopy was recommended in 5 years. I angela see him back on a yearly basis with labs on return to clinic. History of testicular cancer s/p radiation and surgery in 2014. No evidence of relapse of disease. Neuropathy. Stable. TOBACCO COUNSELING He is not a tobacco user. 11/19/2021 Brock Gibbons MD USION TECHNICIAN documented in this encounter Plan of Treatment Upcoming Encounters Date Type Department Care Team (Late st Contact Info) Description 11/24/2025 2:15 PM EXTRUSION TECHNICIAN Office Visit [facility] Oncology and Hematology [place] [address] [address] [place] [phone] Brock Gibbons MD [address] [facility] [address] [place] [address] Scheduled Orders Name Type Priority Associated Diagnoses Orde r Schedule CBC WITH DIFFERENTIAL Lab Stat Malignant neoplasm of colon, unspecified part of colon Expected: 11/19/2022, Expires: 11/19/2022 COMPREHENSIVE METABOLIC PANEL Lab Stat Malignant neoplasm of colon, unspecified part of colon Expected: 11/19/2022, Expires: 11/19/2022 documented as of this encounter Visit Diagnoses Diagnosis Malignant neoplasm of colon, unspecified part of colon- Primary documented in this encounter Care Teams Telecommunications Sales Representative Relationship Specialty Start Date End Date Avinash Berg MD [address] [facility] 100 [place] [phone] PCP - General Family Practice 06/13/17 documented as of this encounter
--- OUTSIDE RECORDS SUMMARY | 2024-11-23 10:34 | XMS_ITS | Encounter Summary ---
Author Organization [facility] Address [address] [place] [address] Care Team Providers Care Addiction Treatment Counselor Name Role Phone Avinash Berg MD Primary Care Provider +- [phone] Encounter Details Date Type Department Care Team (Late Contact Info) Description 02/09/2021 Orders Only [facility] Oncology and Hematology - [place] [address] [place] [address] Stephanie Dominguez Malignant neoplasm of colon, unspecified part of [...] (Late Contact Info) Description 11/24/2025 2:15 PM ECLECTIC DOCTOR Office Visit [facility] Oncology and Hematology [place] [address] [place] [address] Brock Gibbons MD [address] [facility] [address] [place] [address] documented as of this encounter Visit Diagnoses Diagnosis Malignant neoplasm of colon, unspecified part of colon documented in this encounter Care Teams Addiction Treatment Counselor Relationship Specialty Start Date End Date Avinash Berg MD [address] [address] PCP - General Family Practice 06/13/17 documented as of this encounter
--- OUTSIDE RECORDS SUMMARY | 2024-11-23 10:34 | XMS_ITS | Encounter Summary ---
Author Organization [facility] [facility] Address [address] [place] [address] Care Team Providers Care Configuration Release Manager Name Role Phone Avinash Berg MD Primary Care Provider +1- [phone] Reason for Visit * Reason Comments Follow Up Encounter Details Date Type Department Care Team (Late st Contact Info) Description 11/18/2022 2:15 PM CURRICULUM COUNSELOR Office Visit [facility] Oncology and Hematology - [place] [address] [facility] [address] [place] [address] Brock Gibbons MD [address] [facility] [address] [place] [address] Malignant neoplasm of colon, unspecified [...] Coronavirus/COVID-19? No / Unsure 11/18/2022 1:39 PM CURRICULUM COUNSELOR documented as of this encounter Last Filed Vital Signs Vital Sign Reading Time Taken Comments Blood Pressure 140/82 11/18/2022 1:46 PM CURRICULUM COUNSELOR Pulse 63 11/18/2022 1:43 PM CURRICULUM COUNSELOR Temperature 36.6 ??C (97.8 ??F) 11/18/2022 1:43 PM CS T Respiratory Rate 14 11/18/2022 1:43 PM CURRICULUM COUNSELOR Oxygen Saturation 95% 11/18/2022 1:43 PM CURRICULUM COUNSELOR Inhaled Oxygen Concentration - - Weight 96.8 kg (213 lb 8 oz) 11/18/2022 1:43 PM CURRICULUM COUNSELOR Height - - Body Mass Index 28.17 11/19/2021 2:09 PM CURRICULUM COUNSELOR documented in this encounter Progress Notes * Brock Gibbons MD - 11/18/2022 2:27 PM CST HEMATOLOGY / ONCOLOGY PROGRESS NOTE Patient Identification: Name: David Pan Age: 62 y.o. Sex: male : 1960 DIAGNOSIS T3 N0 M0 stage IIA moderately differentiated adenocarcinoma of colon, K-tod wild type microsatellite stable tumor with pericolonic fat invasion status post laparoscopic sigmoid colon resection on May 30, 2017. CURRENT TREATMENT Surveillance TREATMENT HISTORY Adjuvant FOLFOX x12 completed December 17, 2017 SUBJECTIVE Patient came into the office for follow-up visit. He has gained 10 pound weight. Denies any melena hematochezia. Denies any diarrhea and constipation. No other new complaints. Review of system Constitutional: denies fevers, sweats, fatigue, malaise, 10 pound weight gain HEENT: denies sinus congestion, hearing or vision [...] CEA 3.3 creatinine 0.9 total bilirubin 0.5 Assessment: Plan: Patient Active Problem List Diagnosis Date Noted Malignant neoplasm of sigmoid colon 06/18/2017 T3 N0 M0 stage IIA adenocarcinoma of colon status post hand-assisted laparoscopic sigmoid colon resection on May 30, 2017. Status post adjuvant chemotherapy with FOLFOX regimen completed December. Patient has gained 10 pound weight. He denies any melena hematochezia. He remains asymptomatic. CEAis close to normal. Patient is asymptomatic. We will see him back in 1 year. Repeat colonoscopy will be done in May 2026. History of testicular cancer status post radiation and surgery in 2014. No evidence of relapse of disease. Neuropathy. Stable. Follow-up in 1 year. TOBACCO COUNSELING He is not a tobacco user. 11/18/2022 Brock Gibbons MD ICULUM COUNSELOR documented in this encounter Plan of Treatment Upcoming Encounters Date Type Department Care Team (Late st Contact Info) Description 11/24/2025 2:15 PM CURRICULUM COUNSELOR Office Visit [facility] Oncology and Hematology - [place] [address] [facility] [address] [place] [address] Brock Gibbons MD [address] [facility] [address] [place] [address] documented as of this encounter Visit Diagnoses Diagnosis Malignant neoplasm of colon, unspecified part of colon- Primary documented in this encounter Care Teams Configuration Release Manager Relationship Specialty Start Date End Date Avinash Berg MD [address] [facility] [address] [place] [address] PCP - General Family Practice 06/13/17 documented as of this encounter
--- OUTSIDE RECORDS SUMMARY | 2024-11-23 10:34 | XMS_ITS | Encounter Summary ---
Author Organization [facility] [employer] [facility] Address [address] [place] [address] Care Team Providers Care Sports Leadership Instructor Name Role Phone Avinash Berg MD Primary Care Provider +1- [phone] Encounter Details Date Type Department Care Team ([facility] Contact Info) Description 11/18/2022 Orders Only [facility] Oncology and [facility] [address] [facility] [address] [place] [address] Mary Do Malignant neoplasm of colon, unspecified part of [...] Coronavirus/COVID-19? No / Unsure 11/18/2022 1:39 PM MESS COOK documented as of this encounter Plan of Treatment Upcoming Encounters Date Type Department Care Team (Late Contact Info) Description 11/24/2025 2:15 PM MESS COOK Office Visit [facility] Oncology and [facility] [address] [place] [address] Brock Gibbons MD [address] [facility] [address] [place] [address] documented as of this encounter Visit Diagnoses Diagnosis Malignant neoplasm of colon, unspecified part of colon documented in this encounter Care Teams Sports Leadership Instructor Relationship Specialty Start Date End Date Avinash Berg MD [address] [address] PCP - General Family Practice 06/13/17 documented as of this encounter
--- OUTSIDE RECORDS SUMMARY | 2024-11-23 10:34 | XMS_ITS | Encounter Summary ---
Author Organization [facility] Address [address] [place] [address] Care Team Providers Care Machine Group Leader Name Role Phone Avinash Berg MD Primary Care Provider +1- [phone] Reason for Visit * Reason Comments Follow Up Encounter Details Date Type Department Care Team (Late st Contact Info) Description 11/19/2017 9:00 AM MOTHER TESTER Office Visit [facility] Oncology and Hematology - [place] [address] [facility] [address] [address] Brock Gibbons MD [address] [facility] [address] [place] [address] Malignant neoplasm of sigmoid colon [...] Sign Reading Time Taken Comments Blood Pressure 121/81 11/19/2017 9:03 AM MOTHER TESTER Pulse 78 11/19/2017 9:03 AM MOTHER TESTER Temperature 36.4 ??C (97.6 ??F) 11/19/2017 9:03 AM CS T Respiratory Rate 16 11/19/2017 9:03 AM MOTHER TESTER Oxygen Saturation - - Inhaled Oxygen Concentration - - Weight 94.3 kg (208 lb) 11/19/2017 9:03 AM MOTHER TESTER Height 185.4 cm (6' 1 ) 11/19/2017 9:03 AM MOTHER TESTER Body Mass Index 27.44 11/19/2017 9:03 AM MOTHER TESTER documented in this encounter Progress Notes * Brock Gibbons MD - 11/19/2017 9:19 AM CST HEMATOLOGY / ONCOLOGY PROGRESS NOTE [...] showed WC 5.1 hemoglobin 15 platelet 138,000. Assessment: Plan: Patient Active Problem List Diagnosis [...] worsening of thrombocytopenia. Patient will receive cycle 10 of chemotherapy with FOLFOX regimen today. Insomnia.Continue Ambien XR. Chemotherapy-induced neutropenia prophylaxis. Patient will receive Neulasta. I have instructed him to take Claritin for bone pain. Thrombocytopenia secondary to chemotherapy. Platelets are stable and proceed with chemotherapy. History of testicular cancer status post surgery and radiation therapy 2 years ago. Patient has been followed by Dr. Quang Farris. He is in remission. ? 11/19/2017 Brock Gibbons MD ER TESTER documented in this encounter Plan of Treatment Upcoming Encounters Date Type Department Care Team (Late st Contact Info) Description 11/24/2025 2:15 PM MOTHER TESTER Office Visit [facility] Oncology and Hematology [place] [address] [address] [place] [phone] Brock Gibbons MD [address] [facility] [address] [place] [address] documented as of this encounter Results * CBC WITH DIFFERENTIAL (12/17/2017) Blood Brock Gibbons MD HEMATOLOGY ORDERABLE S EXTERNAL LAB * BASIC METABOLIC PANEL (12/17/2017) Blood Brock Gibbons MD CHEMISTRY ORDERABLES Performing Organization Address City/[facility] Co de Phone Number EXTERNAL LAB documented in this encounter Visit Diagnoses Diagnosis Malignant neoplasm of sigmoid colon- Primary documented in this encounter Care Teams Machine Group Leader Relationship Specialty Start Date End Date Avinash Berg MD [address] [place] [address] [place] [phone] PCP - General Family Practice 06/13/17 documented as of this encounter
--- OUTSIDE RECORDS SUMMARY | 2024-11-23 10:34 | XMS_ITS | Encounter Summary ---
Author Organization [facility] Address [address] [place] [address] Care Team Providers Care Green Promotions Specialist Name Role Phone Avinash Berg MD Primary Care Provider +1- [phone] Encounter Details Date Type Department Care Team (Late Contact Info) Description 02/26/2019 Orders Only [facility] Oncology and Hematology [facility] [address] [place] [address] Brock Gibbons MD [facility] [employer] [address] [place] [address] Malignant neoplasm of colon, unspecified part [...] st Contact Info) Description 11/24/2025 2:15 PM PATHOLOGY SUPERVISOR Office Visit [facility] Oncology [facility] Hematology [facility] [address] [place] [address] Brock Gibbons MD [address] [employer] [address] [place] [address] documented as of this encounter Procedures Procedure Name Priority Date/Time Associated Diagnosis Comments CT ABDOMEN PELVIS W CONTRAST Routine 02/25/2019 Malignant neoplasm of colon, unspecified part of colon documented in this encounter Results * CT ABDOMEN PELVIS W CONTRAST (02/25/2019) Anatomical Region Laterality Modality Abdomen Other Brock Gibbons MD CT ORDERABLES documented in this encounter Visit Diagnoses Diagnosis Malignant neoplasm of colon, unspecified part of colon documented in this encounter Care Teams Green Promotions Specialist Relationship Specialty Start Date End Date Avinash Berg MD [address] [address] PCP - General Family Practice 06/13/17 documented as of this encounter
--- OUTSIDE RECORDS SUMMARY | 2024-11-23 10:35 | XMS_ITS | Encounter Summary ---
Author Organization [facility] Address [address] [place] [address] Care Team Providers Care Clinic Coordinator Name Role Phone Avinash Berg MD Primary Care Provider +1- [phone] Encounter Details Date Type Department Care Team (Late Contact Info) Description 08/27/2017 Orders Only [facility] Oncology and Hematology [facility] [address] [place] [address] Ondina Ferreira RN Malignant neoplasm [...] (Late Contact Info) Description 11/24/2025 2:15 PM CONVEYOR LINE BATTERY CHARGER Office Visit [facility] Oncology and Hematology [facility] [address] [place] [address] Brock Gibbons MD [address] [facility] [address] [place] [address] documented as of this encounter Procedures Procedure Name Priority Date/Time Associated Diagnosis Comments CBC WITH DIFFERENTIAL Stat 08/27/2017 Malignant neoplasm of sigmoid colon COMPREHENSIVE METABOLIC PANEL Routine 08/27/2017 Malignant neoplasm of sigmoid colon documented in this encounter Results * (ABNORMAL) COMPREHENSIVE METABOLIC PANEL (08/27/2017) Blood Brock Gibbons MD CHEMISTRY ORDERABLES Performing Organization Address City/[facility]/ZIP Co de Phone Number EXTERNAL LAB * (ABNORMAL) CBC WITH DIFFERENTIAL (08/27/2017) Blood Brock Gibbons MD HEMATOLOGY ORDERABLE S Performing Organization Address City/[facility] Co de Phone Number EXTERNAL LAB documented in this encounter Visit Diagnoses Diagnosis Malignant neoplasm of sigmoid colon documented in this encounter Care Teams Clinic Coordinator Relationship Specialty Start Date End Date Avinash Berg MD [address] [place] [address] PCP - General Family Practice 06/13/17 documented as of this encounter
--- OUTSIDE RECORDS SUMMARY | 2024-11-23 10:35 | XMS_ITS | Encounter Summary ---
Author Organization [facility] Address [address] [place] [address] Care Team Providers Care Satellite Project Site Monitor Name Role Phone Avinash Berg MD Primary Care Provider +1- [phone] Encounter Details Date Type Department Care Team (Late Contact Info) Description 07/30/2017 Orders Only [facility] Oncology and Hematology [facility] [address] [place] [address] Ondina Ferreira RN Malignant neoplasm [...] (Late Contact Info) Description 11/24/2025 2:15 PM COKE BURNER Office Visit [facility] Oncology and [facility] [address] [place] [address] Brock Gibbons MD [address] [facility] [address] [place] [address] documented as of this encounter Procedures Procedure Name Priority Date/Time Associated Diagnosis Comments CBC WITH DIFFERENTIAL Routine 07/30/2017 Malignant neoplasm of sigmoid colon BASIC METABOLIC PANEL Routine 07/30/2017 Malignant neoplasm of sigmoid colon documented in this encounter Results * (ABNORMAL) CBC WITH DIFFERENTIAL (07/30/2017) Blood Brock Gibbons MD HEMATOLOGY ORDERABLE S EXTERNAL LAB * (ABNORMAL) BASIC METABOLIC PANEL (07/30/2017) Blood Brock Gibbons MD CHEMISTRY ORDERABLES Performing Organization Address City/[facility] Co de Phone Number EXTERNAL LAB documented in this encounter Visit Diagnoses Diagnosis Malignant neoplasm of sigmoid colon documented in this encounter Care Teams Satellite Project Site Monitor Relationship Specialty Start Date End Date Avinash Berg MD [address] [place] [address] PCP - General Family Practice 06/13/17 documented as of this encounter
--- OUTSIDE RECORDS SUMMARY | 2024-11-23 10:35 | XMS_ITS | Encounter Summary ---
Author Organization [facility] Address [address] [place] [address] Care Team Providers Care Gizzard Skin Remover Name Role Phone Avinash Berg MD Primary Care Provider +1- [phone] Reason for Visit * Reason Comments Follow Up Encounter Details Date Type Department Care Team (Late st Contact Info) Description 08/13/2017 8:30 AM CDT Office Visit [facility] Oncology and Hematology - [place] [address] [facility] [address] [address] Brock Gibbons MD [address] [facility] [address] [place] [address] Malignant neoplasm of colon, unspecified [...] Sign Reading Time Taken Comments Blood Pressure 129/81 08/13/2017 8:35 AM CDT Pulse 79 08/13/2017 8:35 AM CDT Temperature 36.7 ??C (98 ??F) 08/13/2017 8:35 AM CDT Respiratory Rate 16 08/13/2017 8:35 AM CDT Oxygen Saturation - - Inhaled Oxygen Concentration - - Weight 92.6 kg (204 lb 1.6 oz) 08/13/2017 8:35 A M CDT Height 185.4 cm (6' 1 ) 08/13/2017 8:35 AM CDT Body Mass Index 26.93 08/13/2017 8:35 AM CDT documented in this encounter Progress Notes * Brock Gibbons MD - 08/13/2017 10:11 AM CDT HEMATOLOGY / ONCOLOGY PROGRESS NOTE Patient Identification: Name: David Pan Age: 56 y.o. Sex: male : 1960 Subjective: HPI [...] the surgery. Interval History: Patient received cycle 2 of chemotherapy on July 16 2017. He tolerated chemotherapy fairly wellwith occasional nausea. Denies any diarrhea and neuropathy. He has trouble with sleeping. Review of system Constitutional: No fever; no night sweats; no anorexia; no weight loss; no fatique Respiratory: No shortness of breath; no pleuritic chest pain; no cough; no hemoptysis Cardiac: No cardiac-like chest pain; no palpitations; no orthopnea; no PND; no DIAS GI: No abdominal pain; no nausea; no vomiting; no diarrhea; no hematochezia; no melena Musculosketetal: no bone pain; no arthralgia; no joint swelling; no myalgia; Neuro: No headache; no change in vision; no sensory changes; no muscle weakness; no confusion; [...] platelet 129,000 Labs from August 13 showed WAC 8.6 hemoglobin 14.8 platelet 211,000 potassium 4.1 creatinine 0.8. Assessment: Plan: Patient Active Problem [...] fat invasion and undetectable microsatellite instability. Patient will receive cycle 4 of chemotherapy with FOLFOX regimen today. Hetolerated chemotherapy fairly well so far. I have reviewed the labs.I will see him back in 4 weeks. Insomnia.we will start Ambien XR. Chemotherapy-induced neutropenia prophylaxis. Patient will receive Neulasta. History of testicular cancer status post surgery and radiation therapy 2 years ago. Patient has been followed by Dr. Quang Farris. He is in remission. ? 08/13/2017 Brock Gibbons MD documented in this encounter Plan of Treatment Upcoming Encounters Date Type Department Care Team (Late st Contact Info) Description 11/24/2025 2:[address] SERVICE Office Visit [facility] Oncology and Hematology - [place] [address] [facility] [address] [place] [address] Brock Gibbons MD [address] [facility] [address] [place] [address] documented as of this encounter Results * (ABNORMAL) CBC WITH DIFFERENTIAL (09/10/2017) Blood Brock Gibbons MD HEMATOLOGY ORDERABLE S EXTERNAL LAB * (ABNORMAL) BASIC METABOLIC PANEL (09/10/2017) Blood Brock Gibbons MD CHEMISTRY ORDERABLES Performing Organization Address City/[facility]/ZIP Co de Phone Number EXTERNAL LAB documented in this encounter Visit Diagnoses Diagnosis Malignant neoplasm of colon, unspecified part of colon- Primary documented in this encounter Care Teams Gizzard Skin Remover Relationship Specialty Start Date End Date Avinash Berg MD [address] [place] [phone] PCP - General Family Practice 06/13/17 documented as of this encounter
--- OUTSIDE RECORDS SUMMARY | 2024-11-23 10:35 | XMS_ITS | Encounter Summary ---
Author Organization [facility] Address [address] [place] [address] Care Team Providers Care Lip Reading Teacher Name Role Phone Avinash Berg MD Primary Care Provider +1- [phone] Encounter Details Date Type Department Care Team (Late Contact Info) Description 07/16/2017 Orders Only [facility] Oncology and Hematology [facility] [address] [place] [address] Ondina Ferreira RN Malignant neoplasm [...] (Late Contact Info) Description 11/24/2025 2:15 PM OPHTHALMOLOGY SURGICAL TECHNICIAN Office Visit [facility] Oncology and [facility] [address] [place] [address] Brock Gibbons MD [address] [facility] [address] [place] [address] documented as of this encounter Procedures Procedure Name Priority Date/Time Associated Diagnosis Comments CBC WITH DIFFERENTIAL Routine 07/16/2017 Malignant neoplasm of sigmoid colon BASIC METABOLIC PANEL Routine 07/16/2017 Malignant neoplasm of sigmoid colon documented in this encounter Results * (ABNORMAL) CBC WITH DIFFERENTIAL (07/16/2017) Blood Brock Gibbons MD HEMATOLOGY ORDERABLE S EXTERNAL LAB * (ABNORMAL) BASIC METABOLIC PANEL (07/16/2017) Blood Brock Gibbons MD CHEMISTRY ORDERABLES Performing Organization Address City/[facility] Co de Phone Number EXTERNAL LAB documented in this encounter Visit Diagnoses Diagnosis Malignant neoplasm of sigmoid colon documented in this encounter Care Teams Lip Reading Teacher Relationship Specialty Start Date End Date Avinash Berg MD [address] [place] [address] PCP - General Family Practice 06/13/17 documented as of this encounter
--- OUTSIDE RECORDS SUMMARY | 2024-11-23 10:35 | XMS_ITS | Encounter Summary ---
Author Organization [facility] Address [address] [place] [address] Care Team Providers Care Order To Delivery Supervisor Name Role Phone Avinash Berg MD Primary Care Provider +1- [phone] Encounter Details Date Type Department Care Team (Late Contact Info) Description 10/23/2017 Orders Only [facility] Oncology and [facility] [address] [place] [address] Brock Gibbons MD [address] [employer] [address] [place] [address] Malignant neoplasm of sigmoid colon Social [...] (Late Contact Info) Description 11/24/2025 2:15 PM PERSONAL SERVICE REPRESENTATIVE Office Visit [facility] Oncology [facility] [address] [place] [address] Brock Gibbons MD [address] [employer] [address] [place] [address] documented as of this encounter Procedures Procedure Name Priority Date/Time Associated Diagnosis Comments CBC WITH DIFFERENTIAL Stat 10/23/2017 Malignant neoplasm of sigmoid colon COMPREHENSIVE METABOLIC PANEL Routine 10/22/2017 BASIC METABOLIC PANEL Routine 10/22/2017 documented in this encounter Results * CBC WITH DIFFERENTIAL (10/23/2017) Blood Brock Gibbons MD HEMATOLOGY ORDERABLE S Performing Organization Address City/[facility]/ZIP Co de Phone Number EXTERNAL LAB * COMPREHENSIVE METABOLIC PANEL (10/22/2017) Blood Brock Gibbons MD CHEMISTRY ORDERABLES [facility] * BASIC METABOLIC PANEL (10/22/2017) Blood Brock Gibbons MD CHEMISTRY ORDERABLES Performing Organization Address [facility]/ZIP Co de Phone Number [facility] documented in this encounter Visit Diagnoses Diagnosis Malignant neoplasm of sigmoid colon documented in this encounter Care Teams Order To Delivery Supervisor Relationship Specialty Start Date End Date Avinash Berg MD [address] [address] PCP - General Family Practice 06/13/17 documented as of this encounter
--- OUTSIDE RECORDS SUMMARY | 2024-11-23 10:35 | XMS_ITS | Encounter Summary ---
Author Organization [facility] Address [address] [place] [address] Care Team Providers Care Principal System Software Engineer Name Role Phone Avinash Berg MD Primary Care Provider +1- [phone] Encounter Details Date Type Department Care Team (Late Contact Info) Description 10/09/2017 Orders Only [facility] Oncology and Hematology [facility] [address] [place] [address] Ondina Ferreira RN Social History Tobacco Use Types Packs/Day Years [...] (Late Contact Info) Description 11/24/2025 2:15 PM SIMULATION TECHNICIAN Office Visit [facility] Oncology and Hematology [facility] [address] [place] [address] Brock Gibbons MD [address] [facility] [address] [place] [address] documented as of this encounter Visit Diagnoses Not on filedocumented in this encounter Care Teams Principal System Software Engineer Relationship Specialty Start Date End Date Avinash Berg MD [address] [facility] [address] [place] [address] PCP - General Family Practice 06/13/17 documented as of this encounter
--- OUTSIDE RECORDS SUMMARY | 2024-11-23 10:35 | XMS_ITS | Encounter Summary ---
Author Organization [facility] Address [address] [place] [address] Care Team Providers Care Oxidized Finish Plater Name Role Phone Avinash Berg MD Primary Care Provider +1- [phone] Reason for Visit * Reason Onset Date Comments Nausea 08/27/2017 Encounter Details Date Type Department Care Team ([facility] Contact Info) Description 08/27/2017 Telephone [facility] Oncology and Hematology - [place] [address] [place] [address] Brock Gibbons MD [address] [facility] [employer] [address] [place] [address] Nausea Social History Tobacco Use Types Packs/Day Years [...] Telephone Encounter - Ondina Ferreira RN - 08/27/2017 2:00 PM CDT Infusion nurse reports zofran not controlling nausea, Compazine ordered at pharmacy. Ondina Ferreira RN documented in this encounter Plan of Treatment Upcoming Encounters Date Type Department Care Team ([facility] Contact Info) Description 11/24/2025 2:15 PM OLIVE PITTER Office Visit [facility] Oncology and Hematology - [place] [address] [place] [address] Brock Gibbons MD [address] [facility] [address] [place] [address] documented as of this encounter Visit Diagnoses Not on filedocumented in this encounter Care Teams Oxidized Finish Plater Relationship Specialty Start Date End Date Avinash Berg MD [address] [facility] [address] [place] [phone] PCP - General Family Practice 06/13/17 documented as of this encounter
--- OUTSIDE RECORDS SUMMARY | 2024-11-23 10:35 | XMS_ITS | Encounter Summary ---
Author Organization [facility] Address [address] [place] [address] Care Team Providers Care Visual Associate Name Role Phone Avinash Berg MD Primary Care Provider +1- [phone] Encounter Details Date Type Department Care Team (Late Contact Info) Description 09/24/2017 Orders Only [facility] Oncology and Hematology [facility] [address] [place] [address] Ondina Ferreira RN Malignant neoplasm [...] (Late Contact Info) Description 11/24/2025 2:15 PM HUMAN RESOURCE CONSULTANT Office Visit [facility] Oncology and [facility] [address] [place] [address] Brock Gibbons MD [address] [facility] [address] [place] [address] documented as of this encounter Procedures Procedure Name Priority Date/Time Associated Diagnosis Comments COMPREHENSIVE METABOLIC PANEL Routine 10/08/2017 Malignant neoplasm of sigmoid colon CBC WITH DIFFERENTIAL Stat 09/24/2017 Malignant neoplasm of sigmoid colon documented in this encounter Results * (ABNORMAL) COMPREHENSIVE METABOLIC PANEL (10/08/2017) Blood Brock Gibbons MD CHEMISTRY ORDERABLES EXTERNAL LAB * CBC WITH DIFFERENTIAL (09/24/2017) Blood Brock Gibbons MD HEMATOLOGY ORDERABLE S Performing Organization Address City/[facility] Co de Phone Number EXTERNAL LAB documented in this encounter Visit Diagnoses Diagnosis Malignant neoplasm of sigmoid colon documented in this encounter Care Teams Visual Associate Relationship Specialty Start Date End Date Avinash Berg MD [address] [place] [address] PCP - General Family Practice 06/13/17 documented as of this encounter
--- OUTSIDE RECORDS SUMMARY | 2024-11-23 10:35 | XMS_ITS | Encounter Summary ---
Author Organization [facility] Address [address] [place] [address] Care Team Providers Care Director Of Retail Merchandising Name Role Phone Avinash Berg MD Primary Care Provider +1- [phone] Encounter Details Date Type Department Care Team (Late Contact Info) Description 10/08/2017 Orders Only [facility] Oncology and Hematology [facility] [address] [place] [address] Ondina Ferreira RN Malignant neoplasm [...] (Late Contact Info) Description 11/24/2025 2:15 PM BILLER Office Visit [facility] Oncology and [facility] [address] [place] [address] Brock Gibbons MD [address] [facility] [address] [place] [address] documented as of this encounter Procedures Procedure Name Priority Date/Time Associated Diagnosis Comments CBC WITH DIFFERENTIAL Stat 10/08/2017 Malignant neoplasm of sigmoid colon documented in this encounter Results * (ABNORMAL) CBC WITH DIFFERENTIAL (10/08/2017) Blood Brock Gibbons MD HEMATOLOGY ORDERABLE S EXTERNAL LAB documented in this encounter Visit Diagnoses Diagnosis Malignant neoplasm of sigmoid colon documented in this encounter Care Teams Director Of Retail Merchandising Relationship Specialty Start Date End Date Avinash Berg MD [address] [address] PCP - General Family Practice 06/13/17 documented as of this encounter
--- OUTSIDE RECORDS SUMMARY | 2024-11-23 10:35 | XMS_ITS | Encounter Summary ---
Author Organization [facility] Address [address] [place] [address] Care Team Providers Care End Trimmer Name Role Phone Avinash Berg MD Primary Care Provider +1- [phone] Encounter Details Date Type Department Care Team (Late Contact Info) Description 07/09/2017 Orders Only [facility] Oncology and Hematology [facility] [address] [place] [address] Ondina Ferreira RN Social History [...] (Late Contact Info) Description 11/24/2025 2:15 PM OIL DELIVERER Office Visit [facility] Oncology and Hematology [facility] [address] [place] [address] Brock Gibbons MD [address] [facility] [address] [place] [address] documented as of this encounter Visit Diagnoses Not on filedocumented in this encounter Care Teams End Trimmer Relationship Specialty Start Date End Date Avinash Berg MD 531 [facility] [address] [place] [address] PCP - General Family Practice 06/13/17 documented as of this encounter
--- OUTSIDE RECORDS SUMMARY | 2024-11-23 10:35 | XMS_ITS | Encounter Summary ---
Author Organization [facility] Address [address] [place] [address] Care Team Providers Care Follow Up Manager Name Role Phone Avinash Berg MD Primary Care Provider +1- [phone] Reason for Visit * Reason Onset Date Comments Diarrhea 10/07/2017 Encounter Details Date Type Department Care Team (Late st Contact Info) Description 10/07/2017 Telephone [facility] Oncology and Hematology - [place] [address] [facility] [address] [place] [address] Brock Gibbons MD [address] [facility] [address] [place] [address] Diarrhea Social History Tobacco Use Types Packs/Day Years [...] Telephone Encounter - Ondina Ferreira RN - 10/07/2017 10:37 AM CST Pt called to report he had diarrhea Friday am and again yesterday pm and this am. Pt has been taking Immodium but sparingly. Pt advised to take Immodium 2 tabs with initial diarrheal stool and then 1with each diarrhea, pt may take up to 8 tabs?day. Pt states understanding. Pt advised to push po fluids and report back if diarrhea does not stop, can order rx. Ondina S Jhon, RN GER TELEMARKETING documented in this encounter Plan of Treatment Upcoming Encounters Date Type Department Care Team (Late st Contact Info) Description 11/24/2025 2:15 PM MANAGER TELEMARKETING Office Visit [facility] Oncology and Hematology - [place] [address] [facility] [address] [place] [address] Brock Gibbons MD 2[address] [facility] [address] [place] [address] documented as of this encounter Visit Diagnoses Not on filedocumented in this encounter Care Teams Follow Up Manager Relationship Specialty Start Date End Date Avinash Berg MD 531 [facility] [address] [place] [address] PCP - General Family Practice 06/13/17 documented as of this encounter
--- OUTSIDE RECORDS SUMMARY | 2024-11-23 10:35 | XMS_ITS | Encounter Summary ---
Author Organization [facility] Address [address] [place] [address] Care Team Providers Care Die Repairer Trimmer Dies Name Role Phone Avinash Berg MD Primary Care Provider +1- [phone] Encounter Details Date Type Department Care Team (Late Contact Info) Description 06/18/2017 Orders Only [facility] Oncology and Hematology [facility] [address] [place] [address] Henry Priest MD NO ADDRESS ON FILE Social History Tobacco [...] (Late Contact Info) Description 11/24/2025 2:15 PM HARNESS AND BAG INSPECTOR Office Visit [facility] Oncology and Hematology [facility] [address] [place] [address] Brock Gibbons MD 22[address] [facility] [address] [place] [address] documented as of this encounter Procedures Procedure Name Priority Date/Time Associated Diagnosis Comments CBC WITHOUT DIFFERENTIAL Routine 05/31/2017 documented in this encounter Results * CBC WITHOUT DIFFERENTIAL (05/31/2017) Blood Henry Priest MD HEMATOLOGY ORDERABLE S [facility] documented in this encounter Visit Diagnoses Not on filedocumented in this encounter Care Teams Die Repairer Trimmer Dies Relationship Specialty Start Date End Date Avinash Berg MD [address] [phone] PCP - General Family Practice 06/13/17 documented as of this encounter
--- OUTSIDE RECORDS SUMMARY | 2024-11-23 10:35 | XMS_ITS | Continuity of Care Document ---
Author Organization [facility] Address [address] [place] [address] [place] [address] Phone Care Team Providers Care Commercial Project Manager Name Role Phone Lexa GTZ FACS, Darwin Unavailable Unavailab le Allergies, Adverse Reactions, Alerts Substance Reaction Status Criticality No Known allergies Medications Medication Instructions Dosage Effective Dates (start - stop) Status Comments Zirgan 0.15 % Eye Gel - Acti ve Lisinopril 10 mg Tab take 1 tablet (10MG ) by ORAL route every day 10 MG - Active Pravastatin 20 mg Tab take 2 tablet (40M G) by ORAL route every day 40 MG - Active Procedures Procedure Date Office/outpatient Visit, Est Office/outpatient Visit, New Advance Directives Directive Yes / No Effective Date File Name Resuscitation Not Answered N/A N/A Life Support Not Answered N/A N/A Intubation Not Answered N/A N/A Antibiotics Not Answered N/A N/A IV Fluid Support Not Answered N/A N/A Tube Feed Not Answered N/A N/A Other Directive N/A N/A WARNING:The information contained in this section is historical and is provided for information only and does not constitute a legal document or any assurance that the information is still accurate. Please verify the information with the thomas of the legal document before using it for clinical purposes. Encounters Encounter Description Practice Location Reason(s) For Visit Diagnoses Date Provider Providers Copied on Encounter Office/outpat ient Visit, Est [facility], [address], [place], [place], [id number], [place] tel:[phone] SEC Danni Chan burning (chief complaint) CORNEAL OPACITY NOS Oct-2 1 Lexa Granados. [address] [facility], [address], [place], [place], [id number], . tel:[phone] Referring Provider: Nelson Juarez OD, [address] [place] [address], [address]. tel:[phone] Office/outpat ient Visit, [facility], [address], [place], [place], [id number], tel:[phone] SEC [facility] [place] pain (chief complaint) CORNEAL ULCER NOS Sep-2 1 Lexa Granados. [address] [facility], [address], [place], [place], [id number], [place]. tel:[phone] Referring Provider: Nelson Juarez OD, [address] [place] [address], [address]. tel:[phone] Family History Family Member Type Diagnosis Age At Onset Mother Problem (finding) diabetes melli tus in first degree relative Payers Payer name Insurance type Covered libertarian ID Authorsimia quincy(s) [facility] CI [id number] Social History Type Description Quantity Date Captured Comments Alcohol Use Details Unknown Caffeine Use Details Unknown Tobacco Use Status No Information Smoking Status No Information Sex Male Chief Complaint And Reason For Visit From encounter dated '09/03/2011 09:30'. burning (chief complaint) Reason For Referral Reason For Referral No Information History Of Present Illness Encounter Date Complaint History Of Prese nt Illness No Information Functional Status Date Functional Assessmen t No Information Instructions Date Instruction Additional Infor mation CORNEAL OPACITY NOS, OD small cysts remain Likely caused by Fugarius. - Discussed gtts usage with pt. Taper gtts 4,3,2,1 every week over the next month. Pt understands to save gtts in case of flare up. Pt also aware that he can resume CTL wear after he has tapered his gtts to Qday. Pt should be seen by Dr. Juarez to evaluate his CTL's-and continuing care- Email sent to Dr. Juarez. Related to CORNEAL OPACITY NOS - PRN Related to CORNE AL OPACITY NOS - Friday with Dr. Juarez. Related to CORNEAL ULCER NOS CORNEAL ULCER NOS, O D - Satellite lesions surround ulcer Looks typical for fungus, - Start Natamycin OD 1-2 hours while awake. Rx given. Letter dictated to Dr. Juarez, pt to schedule next visit on Friday with him. Pt will email Dr. Stanton'johnathan if unable to obtain medication. Pt understands to Not wear CTL's and to throw out case. Anticipate preliminary results to be available by FridaySent Urgently Related to CORNEAL ULCER NOS Assessments Type Assessment Date No Information Patient Care Teams Name Effective Dates (start - stop) Status Members No Information
--- OUTSIDE RECORDS SUMMARY | 2024-11-23 10:35 | XMS_ITS | Encounter Summary ---
Author Organization [facility] Address [address] [place] [address] Care Team Providers Care Operations Intern Name Role Phone Avinash Berg MD Primary Care Provider +1- [phone] Reason for Visit * Reason Comments Follow Up pre chemo Encounter Details Date Type Department Care Team (Late st Contact Info) Description 10/08/2017 9:00 AM LARDER COOK Office Visit [facility] Oncology and Hematology - [place] [address] [facility] [address] [address] Brock Gibbons MD 2[address] [facility] [address] [place] [address] Malignant neoplasm of sigmoid colon [...] Sign Reading Time Taken Comments Blood Pressure 117/81 10/08/2017 8:50 AM LARDER COOK Pulse 88 10/08/2017 8:50 AM LARDER COOK Temperature 36.7 ??C (98.1 ??F) 10/08/2017 8:50 AM CS T Respiratory Rate 16 10/08/2017 8:50 AM LARDER COOK Oxygen Saturation - - Inhaled Oxygen Concentration - - Weight 92.9 kg (204 lb 11.2 oz) 10/08/2017 8:50 AM LARDER COOK Height 185.4 cm (6' 1 ) 10/08/2017 8:50 AM LARDER COOK Body Mass Index 27.01 10/08/2017 8:50 AM LARDER COOK documented in this encounter Progress Notes * Brock Gibbons MD - 10/08/2017 9:59 AM CST HEMATOLOGY / ONCOLOGY PROGRESS NOTE [...] the surgery. Interval History: Patient received cycle 5 of chemotherapy with FOLFOX on August 27, 2017. He tolerated chemotherapyfairly well with occasional nausea. Denies any diarrhea [...] potassium 4.0. Labs from October 08 showed WAC 8.1 hemoglobin 16.3 platelet 100,000 creatinine 0.8 potassium 4.1 Assessment: Plan: Patient Active Problem List Diagnosis [...] undetectable microsatellite instability. Patient will receive cycle 8 of chemotherapy with FOLFOX regimen today. Hetolerated chemotherapy fairly well so far. I have reviewed the labs.I will see him back in 4 weeks. Insomnia.Continue Ambien XR. Chemotherapy-induced neutropenia prophylaxis. Patient will receive Neulasta. I have instructed him to take Claritin for bone pain. Thrombocytopenia secondary to chemotherapy. Platelets are stable and proceed with chemotherapy. History of testicular cancer status post surgery and radiation therapy 2 years ago. Patient has been followed by Dr. Quang Farris. He is in remission. ? 10/08/2017 Brock Gibbons MD ER COOK documented in this encounter Plan of Treatment Upcoming Encounters Date Type Department Care Team (Late st Contact Info) Description 11/24/2025 2:15 PM LARDER COOK Office Visit [facility] Oncology and Hematology [facility] [address] [facility] [address] [place] [address] Brock Gibbons MD [address] [facility] [address] [place] [address] documented as of this encounter Visit Diagnoses Diagnosis Malignant neoplasm of sigmoid colon- Primary documented in this encounter Care Teams Operations Intern Relationship Specialty Start Date End Date Avinash Berg MD [address] [address] PCP - General Family Practice 06/13/17 documented as of this encounter
--- OUTSIDE RECORDS SUMMARY | 2024-11-23 10:35 | XMS_ITS | Encounter Summary ---
Author Organization [facility] Address [address] [place] [address] Care Team Providers Care Farm Machinery Assembler Name Role Phone Avinash Berg MD Primary Care Provider +1- [phone] Reason for Visit * Reason Comments Results Encounter Details Date Type Department Care Team (Late st Contact Info) Description 10/22/2017 9:30 AM MICROSOFT BI CONSULTANT Office Visit [facility] Oncology and Hematology - [place] [address] [facility] [address] [place] [address] Brock Gibbons MD [address] [facility] [address] [place] [address] Malignant neoplasm of sigmoid colon [...] Sign Reading Time Taken Comments Blood Pressure 120/85 10/22/2017 9:32 AM MICROSOFT BI CONSULTANT Pulse 87 10/22/2017 9:32 AM MICROSOFT BI CONSULTANT Temperature 36.9 ??C (98.4 ??F) 10/22/2017 9:32 AM CS T Respiratory Rate - - Oxygen Saturation 96% 10/22/2017 9:32 AM MICROSOFT BI CONSULTANT Inhaled Oxygen Concentration - - Weight 93.9 kg (207 lb) 10/22/2017 9:32 AM MICROSOFT BI CONSULTANT Height 185.4 cm (6' 1 ) 10/22/2017 9:32 AM MICROSOFT BI CONSULTANT Body Mass Index 27.31 10/22/2017 9:32 AM MICROSOFT BI CONSULTANT documented in this encounter Progress Notes * Brock Gibbons MD - 10/22/2017 10:01 AM CST HEMATOLOGY / ONCOLOGY PROGRESS NOTE [...] the surgery. Interval History: Patient received cycle 8 of chemotherapy with FOLFOX on October 08, 2017. He tolerated chemotherapy fairly well with [...] showed WbC 8.6 hemoglobin 15.9 platelet 89,000. Assessment: Plan: Patient Active Problem List Diagnosis [...] worsening of thrombocytopenia. Patient will receive cycle 9 of chemotherapy with FOLFOX regimen today. Patient next chemotherapy will beon November 19. Insomnia.Continue Ambien XR. Chemotherapy-induced neutropenia prophylaxis. Patient will receive Neulasta. I have instructed him to take Claritin for bone pain. Thrombocytopenia secondary to chemotherapy. Platelets are stable and proceed with chemotherapy. History of testicular cancer status post surgery and radiation therapy 2 years ago. Patient has been followed by Dr. Quang Farris. He is in remission. ? 10/22/2017 Brock Gibbons MD OSOFT BI CONSULTANT documented in this encounter Plan of Treatment Upcoming Encounters Date Type Department Care Team (Late st Contact Info) Description 11/24/2025 2:15 PM MICROSOFT BI CONSULTANT Office Visit [facility] Oncology and Hematology [facility] [address] [phone] Brock Gibbons MD [address] [facility] [address] [place] [address] documented as of this encounter Results * (ABNORMAL) CBC WITH DIFFERENTIAL (11/19/2017) Blood Brock Gibbons MD HEMATOLOGY ORDERABLE S EXTERNAL LAB * BASIC METABOLIC PANEL (11/19/2017) Blood Brock Gibbons MD CHEMISTRY ORDERABLES Performing Organization Address City/[facility] Co de Phone Number EXTERNAL LAB documented in this encounter Visit Diagnoses Diagnosis Malignant neoplasm of sigmoid colon- Primary documented in this encounter Care Teams Farm Machinery Assembler Relationship Specialty Start Date End Date Avinash Berg MD [address] [place] [address] [address] [place] [address] PCP - General Family Practice 06/13/17 documented as of this encounter
--- OUTSIDE RECORDS SUMMARY | 2024-11-23 10:35 | XMS_ITS | Encounter Summary ---
Author Organization [facility] Address [address] [place] [address] Care Team Providers Care Cake Winder Name Role Phone Avinash Berg MD Primary Care Provider +1- [phone] Reason for Referral * Eval and Treat (Routine) - Closed Specialty Diagnoses / Procedures Referred By Contac t Referred To Contact Diagnoses Malignant neoplasm of sigmoid colon Brock Gibbons MD [address] [place], [place] [address] [address] [place] [phone] Henry Priest MD NO ADDRESS ON FILE Referral ID Status Reason Start Date Expiration Date V isits Requested Visits Authorized [id number] Closed CRS To Schedule (STL) 06/18/2017 06/18/2018 1 1 * Eval and Treat (Routine) - Closed Specialty Diagnoses / Procedures Referred By Contac t Referred To Contact Oncology Diagnoses Malignant neoplasm of sigmoid colon Brock Gibbons MD [facility] [address] [place] [phone] Brock Gibbons MD [address] [place], [place] [address] [address] [place] [phone] Referral ID Status Reason Start Date Expiration Date V isits Requested Visits Authorized [id number] Closed CRS To Schedule (STL) 06/18/2017 06/19/2018 1 1 Reason for Visit * Reason Comments Cancer Establish Care * Eval and Treat (Routine) - Closed Specialty Diagnoses / Procedures Referred By Contac t Referred To Contact Oncology Diagnoses Malignant neoplasm of sigmoid colon Brock Gibbons MD [facility] [address] [place] [phone] Brock Gibbons MD [address] [place] [address] [place] [phone] Referral ID Status Reason Start Date Expiration Date V isits Requested Visits Authorized [id number] Closed CRS To Schedule (STL) 06/18/2017 06/19/2018 1 1 Encounter Details Date Type Department Care Team (Late st Contact Info) Description 06/18/2017 9:30 AM CDT Office Visit [facility] Oncology and Hematology [address] [place] [address] Brock Gibbons MD [address] [place] [address] Malignant neoplasm of sigmoid colon Social [...] Sign Reading Time Taken Comments Blood Pressure 94/78 06/18/2017 9:39 AM CDT Pulse 69 06/18/2017 9:39 AM CDT Temperature 36.8 ??C (98.2 ??F) 06/18/2017 9:39 AM CD T Respiratory Rate - - Oxygen Saturation - - Inhaled Oxygen Concentration - - Weight 91.2 kg (201 lb) 06/18/2017 9:39 AM CDT Height 185.4 cm (6' 1 ) 06/18/2017 9:39 AM CDT Body Mass Index 26.52 06/18/2017 9:39 AM CDT documented in this encounter Progress Notes * Brock Gibbons MD - 06/18/2017 3:12 PM CDT Hematology-oncology consult Note Requesting Physician Dr. Henry Priest M.D. Primary Care Physician Avinash Berg MD Problem list Patient Active Problem List Diagnosis Code ??? Malignant neoplasm of sigmoid colon C18.7 Previous TREATMENT ? Measurable Disease ? Reason for Visit David Pan is a 56 y.o. male who was referred for consultation for colon cancer. History of present illness This is a pleasant 56-year-old male who [...] He is recovering well from the surgery. Past Medical History Past Medical History: Diagnosis Date ??? Diabetes mellitus ??? HTN (hypertension) ??? Hyperlipidemia Testicular cancer diagnosed in 2014 is status post left-sided orchiectomy and radiation therapy without any chemotherapy. Surgical History Past Surgical History: Procedure Laterality Date ??? HX LAPAROSCOPIC COLON RESECTION 2016 ??? HX ORCHIECTOMY 2015 Hernia surgery Medications Current Outpatient Prescriptions Medication Sig Dispense Refill ??? pravastatin (PRAVACHOL) 20 mg tablet Take 20 mg by mouth late in the day. ??? losartan-hydroCHLOROthiazide (HYZAAR) 50-12.5 mg tablet Take 1 Tablet by mouth daily. ??? fish oil-omega-3 fatty acids 340-1,000 mg Capsule Take 1 Capsule by mouth daily. ??? Echinacea 500 mg Capsule Take by mouth. No current facility-administered medications for this visit. Allergies No Known Allergies Immunizations: There is no immunization history on file for this patient. Family History Family History Problem Relation Age of Onset ??? Cancer Mother Mother is living and has breast cancer. Father has diabetes. One sister and she is doing fine. Social History Social History Substance Use Topics ??? Smoking status: Never Smoker ??? Smokeless tobacco: Never Used ??? Alcohol use Not on file Comment: occassional 2 Patient works at [employer]. Patient is . Review of Systems Constitutional: No fever; no night sweats; no anorexia; no weight loss; no fatique NEENT: No headache; no change in vision; no change in hearing; no sore throat; no dysphagia Respiratory: No shortness of breath; no pleuritic chest pain; no cough; no hemoptysis Cardiac: No cardiac-like chest pain; no palpitations; no orthopnea; no PND; no DIAS GI: No abdominal pain; no nausea; no vomiting; no diarrhea; no hematochezia; no melena : No dysuria; no frequency; no hesitancy; no hematuria ENERGY TRADER: Musculosketetal: no bone pain; no arthralgia; no joint swelling; no myalgia; Skin: no pruritis; no rash; no petechiae; no ecchymoses Endocrine: no polydipsia; no polyuria; no unusual weight gain Neuro: No headache; no change in vision; no sensory changes; no muscle weakness; no confusion; no seizures Psych: no anxiety; no depression; Physical Exam Vitals: As per nursing note Constitutional: Well developed, well nourished, no acute distress, non-toxic appearance Teeth and gum. No signs of infection or swelling. Eyes: PERRL, conjunctiva normal HEENT: Atraumatic, external ears normal, nose normal, oropharynx moist, no pharyngeal exudates. no sinus tenderness Neck- normal range of motion, no tenderness, supple Respiratory: No respiratory distress, normal breath sounds, no rales, no wheezing Cardiovascular: Normal rate, normal rhythm, no murmurs, no gallops, no rubs GI: Soft, nondistended, normal bowel sounds, nontender, no splenomegaly, no hepatomegaly, no mass, no rebound, no guarding : No costovertebral angle tenderness Musculoskeletal: No edema, no tenderness, no deformities. Back- no tenderness Integument: Well hydrated, no rash, Digits and nails inspection normal Lymphatic: No lymphadenopathy noted Neurologic: Alert & oriented x 3, CN 2-12 normal, normal motor function, normal sensory function, no focal deficits noted Psychiatric: Speech and behavior appropriate ? labs No results found for this or any previous visit (from the past 24 hour(s)). Labs from May 31 WBC 7.6 hemoglobin 13.8 platelet 164, sodium 141 potassium 3.9 creatinine 0.8 calcium 8.0 total bilirubin 0.8 AST 23 ALT 40 CEA 3.7 done on May 22. Pathology ? Imaging & Other Studies Performance Status? Assessment / Plan: Moderately differentiated colonic adenocarcinoma 3.6 x 3.6 [...] tumor. K-tod wild-type microsatellite instability not detected. I have discussed the pathology in detail and informed him that this is a stage II colon cancer with on the high-risk feature is undetectable microsatellite instability. I would recommend adjuvant chemotherapy given pericolonic fat invasion and undetectable microsatellite instability that would be the risk factor for future relapse given his young age. I will recommend adjuvant chemotherapy with FOLFOX regimen ??12 that would be given on every two-week basis. Patient will receive chemotherapy teaching today. I will refer him back to Dr. Priest for port placement. I have discussed the side effects of chemotherapy in detail. Patient will be back in our office in 2 weeks to start chemotherapy. I like to thank for allowing us to see this patient consultation. Thank you very much for allowing me to participate in David Pan's evaluation and management. Please feel free to contact if I can be of any further assistance in your patient???s care requiringhematology or oncology evaluation. Sincerely, ? ? Brock Gibbons M.D. cell ? Brock Gibbons MD ,06/18/2017 3:12 PM ? Total time spent 60 minutes, two third of the total time spent counseling patient [id number]. CC:?Avinash Berg MD Scott Wong M.D. * Mira Fletcher - 06/18/2017 9:47 AM CDT Establish care and follow Tx post surgery documented in this encounter Miscellaneous Notes * Addendum Note - Ondina Ferreira RN - 07/01/2017 3:43 PM CDTAddended by: ONDINA FERREIRA on: 07/01/2017 03:43 PM Modules accepted: Orders documented in this encounter Plan of Treatment Upcoming Encounters Date Type Department Care Team ([facility] st Contact Info) Description 11/24/2025 2:15 PM GREENS TIER Office Visit [facility] Oncology and Hematology - [place] [address] [facility] [address] [place] [address] Brock Gibbons MD [address] [facility] [address] [place] [address] Scheduled Referrals Name Type Priority Associated Diagnoses Orde r Schedule AMB REFERRAL TO CHEMO TEACHING Outpatient Referral Routine Malignant neoplasm of sigmoid colon Ordered: 06/18/2017 AMB REFERRAL TO GENERAL SURGERY Outpatient Referral Routine Malignant neoplasm of sigmoid colon Ordered: 06/18/2017 documented as of this encounter Visit Diagnoses Diagnosis Malignant neoplasm of sigmoid colon documented in this encounter Care Teams Cake Winder Relationship Specialty Start Date End Date Avinash Berg MD [address] [facility] [address] [place] [phone] PCP - General Family Practice 06/13/17 documented as of this encounter
--- OUTSIDE RECORDS SUMMARY | 2024-11-23 10:35 | XMS_ITS | Encounter Summary ---
Author Organization [facility] Address [address] [place] [address] Care Team Providers Care Bottle House Quality Control Technician Name Role Phone Avinash Berg MD Primary Care Provider +1- [phone] Encounter Details Date Type Department Care Team (Late Contact Info) Description 07/02/2017 Orders Only [facility]3] Oncology and Hematology [facility] [address] [place] [address] Ondina Ferreira RN Malignant neoplasm [...] (Late Contact Info) Description 11/24/2025 2:15 PM PHYSICAL CHEMISTRY TEACHER Office Visit [facility]3] Oncology and Hematology [facility] [address] [place] [address] Brock Gibbons MD [address] [facility] [address] [place] [address] documented as of this encounter Procedures Procedure Name Priority Date/Time Associated Diagnosis Comments CBC WITH DIFFERENTIAL Stat 07/02/2017 Malignant neoplasm of sigmoid colon COMPREHENSIVE METABOLIC PANEL Routine 07/02/2017 Malignant neoplasm of sigmoid colon documented in this encounter Results * (ABNORMAL) COMPREHENSIVE METABOLIC PANEL (07/02/2017) Blood Brock Gibbons MD CHEMISTRY ORDERABLES Performing Organization Address City/[facility]/ZIP Co de Phone Number EXTERNAL LAB * (ABNORMAL) CBC WITH DIFFERENTIAL (07/02/2017) Blood Brock Gibbons MD HEMATOLOGY ORDERABLE S Performing Organization Address City/[facility] Co de Phone Number EXTERNAL LAB documented in this encounter Visit Diagnoses Diagnosis Malignant neoplasm of sigmoid colon documented in this encounter Care Teams Bottle House Quality Control Technician Relationship Specialty Start Date End Date Avinash Berg MD [address] [place] [address] PCP - General Family Practice 06/13/17 documented as of this encounter
--- OUTSIDE RECORDS SUMMARY | 2024-11-23 10:35 | XMS_ITS | Encounter Summary ---
Author Organization [facility] Address [address] [place] [address] Care Team Providers Care Psychologist Social Name Role Phone Avinash Berg MD Primary Care Provider +1- [phone] Reason for Visit * Reason Comments Follow Up pre chemo Encounter Details Date Type Department Care Team (Late st Contact Info) Description 09/10/2017 9:00 AM CDT Office Visit [facility] Oncology and Hematology - [place] [address] [facility] [address] [address] Brock Gibbons MD [address] [facility] [address] [place] [address] Malignant neoplasm of sigmoid colon [...] Sign Reading Time Taken Comments Blood Pressure 124/91 09/10/2017 8:56 AM CDT Pulse 81 09/10/2017 8:56 AM CDT Temperature 36.9 ??C (98.4 ??F) 09/10/2017 8:56 AM CD T Respiratory Rate 18 09/10/2017 8:56 AM CDT Oxygen Saturation - - Inhaled Oxygen Concentration - - Weight 94.8 kg (209 lb) 09/10/2017 8:56 AM CDT Height 185.4 cm (6' 1 ) 09/10/2017 8:56 AM CDT Body Mass Index 27.57 09/10/2017 8:56 AM CDT documented in this encounter Progress Notes * Brock Gibbons MD - 09/10/2017 9:47 AM CDT HEMATOLOGY / ONCOLOGY PROGRESS NOTE Patient Identification: Name: David aPn Age: 56 y.o. Sex: male : 1960 [...] no nausea; no vomiting; no diarrhea; no constipation, no hematochezia; no melena Musculosketetal: [...] 14.6 platelet 104,000 creatinine 0.8 potassium 4.0. Assessment: Plan: Patient Active Problem List Diagnosis [...] undetectable microsatellite instability. Patient will receive cycle 6 of chemotherapy with FOLFOX regimen today. Hetolerated [...] Quang Farris. He is in remission. ? 09/10/2017 Brock Gibbons MD documented in this encounter Plan of Treatment Upcoming Encounters Date Type Department Care Team (Late st Contact Info) Description 11/24/2025 2:15 PM WHEEL AND AXLE INSPECTOR Office Visit [facility] Oncology and Hematology - [place] [address] [facility] [address] [place] [address] Brock Gibbons MD [address] [facility] [address] [place] [address] Scheduled Orders Name Type Priority Associated Diagnoses Orde r Schedule BASIC METABOLIC PANEL Lab Routine Malignant neoplasm of sigmoid colon Expected: 10/08/2017 (Approximate), Expires: 09/10/2018 documented as of this encounter Results * (ABNORMAL) CBC WITH DIFFERENTIAL (10/08/2017) Blood Brock Gibbons MD HEMATOLOGY ORDERABLE S EXTERNAL LAB documented in this encounter Visit Diagnoses Diagnosis Malignant neoplasm of sigmoid colon- Primary documented in this encounter Care Teams Psychologist Social Relationship Specialty Start Date End Date Avinash Berg MD [address] [address] PCP - General Family Practice 06/13/17 documented as of this encounter
--- OUTSIDE RECORDS SUMMARY | 2024-11-23 10:35 | XMS_ITS | Encounter Summary ---
Author Organization [facility] Address [address] [place] [address] Care Team Providers Care Stock Trader Name Role Phone Avinash Berg MD Primary Care Provider +1- [phone] Reason for Visit * Reason Onset Date Comments Medication Review 06/19/2017 Encounter Details Date Type Department Care Team (Late st Contact Info) Description 06/19/2017 Telephone [facility] Oncology and Hematology - [place] [address] [facility] [address] [address] Brock Gibbons MD [address] [facility] [address] [place] [address] Medication Review Social History Tobacco Use Types Packs/Day Years [...] Telephone Encounter - Ondina Ferreira RN - 06/19/2017 11:42 AM CDT Pt requested flu vaccine. Per Dr. Gibbons, he does not recommend receiving flu vaccine after he starts chemotherapy until he completes. I explained to the pt that the yearly flu vaccine usually is notsupplied until Sept, pt will contact PCP to check. Pt may receive pneumovax prior to starting chemotherapy. Ondina Ferreira RN documented in this encounter Plan of Treatment Upcoming Encounters Date Type Department Care Team (Late st Contact Info) Description 11/24/2025 2:15 PM MANAGER INVENTORY CONTROL Office Visit [facility] Oncology and Hematology - [place] [address] [facility] [address] [place] [address] Brock Gibbons MD [address] [facility] [address] [place] [address] documented as of this encounter Visit Diagnoses Not on filedocumented in this encounter Care Teams Stock Trader Relationship Specialty Start Date End Date Avinash Berg MD [address] [facility] [address] [place] [address] PCP - General Family Practice 06/13/17 documented as of this encounter
--- OUTSIDE RECORDS SUMMARY | 2024-11-23 10:35 | XMS_ITS | Encounter Summary ---
Author Organization [facility] Address [address] [place] [address] Care Team Providers Care Parking Lot Signaler Name Role Phone Avinash Berg MD Primary Care Provider +1- [phone] Reason for Visit * Reason Comments Follow Up Encounter Details Date Type Department Care Team (Late st Contact Info) Description 07/30/2017 8:30 AM CDT Office Visit [facility] Oncology and Hematology - [place] [address] [facility] [address] [address] Brock Gibbons MD [address] [facility] [address] [place] [address] Malignant neoplasm of sigmoid colon [...] Sign Reading Time Taken Comments Blood Pressure 112/84 07/30/2017 8:33 AM CDT Pulse 76 07/30/2017 8:33 AM CDT Temperature 36.9 ??C (98.4 ??F) 07/30/2017 8:33 AM CD T Respiratory Rate 16 07/30/2017 8:33 AM CDT Oxygen Saturation - - Inhaled Oxygen Concentration - - Weight 92.6 kg (204 lb 3.2 oz) 07/30/2017 8:33 A M CDT Height 185.4 cm (6' 1 ) 07/30/2017 8:33 AM CDT Body Mass Index 26.94 07/30/2017 8:33 AM CDT documented in this encounter Progress Notes * Brock Gibbons MD - 07/30/2017 9:06 AM CDT HEMATOLOGY / ONCOLOGY PROGRESS NOTE [...] showed WC 10.4 hemoglobin 14.6 platelet 129,000 Assessment: Plan: Patient Active Problem List Diagnosis [...] undetectable microsatellite instability. Patient will receive cycle 3 of chemotherapy with FOLFOX regimen today. Hetolerated chemotherapy fairly well so far. I have reviewed the labs. Insomnia.We will increase dose of Ambien to 10 mg. Chemotherapy-induced neutropenia prophylaxis. Patient will receive Neulasta. History of testicular cancer status post surgery and radiation therapy 2 years ago. Patient has been followed by Dr. Quang Farris. He is in remission. ? 07/30/2017 Brock Gibbons MD documented in this encounter Plan of Treatment Upcoming Encounters Date Type Department Care Team (Late st Contact Info) Description 11/24/2025 2:15 PM SURVEYOR MINE Office Visit [facility] Oncology and Hematology - [place] [address] [facility] [address] [place] [address] Brock Gibbons MD [address] [facility] [address] [place] [address] documented as of this encounter Results * (ABNORMAL) CBC WITH DIFFERENTIAL (08/13/2017) Blood Brock Gibbons MD HEMATOLOGY ORDERABLE S EXTERNAL LAB * BASIC METABOLIC PANEL (08/13/2017) Blood Brock Gibbons MD CHEMISTRY ORDERABLES EXTERNAL LAB documented in this encounter Visit Diagnoses Diagnosis Malignant neoplasm of sigmoid colon- Primary documented in this encounter Care Teams Parking Lot Signaler Relationship Specialty Start Date End Date Avinash Berg MD [address] [address] PCP - General Family Practice 06/13/17 documented as of this encounter
--- OUTSIDE RECORDS SUMMARY | 2024-11-23 10:35 | XMS_ITS | Encounter Summary ---
Author Organization [facility] Address [address] [place] [address] Care Team Providers Care Rivet Machine Operator Name Role Phone Avinash Berg MD Primary Care Provider +1- [phone] Reason for Visit * Reason Comments Follow Up pre chemo Encounter Details Date Type Department Care Team (Late st Contact Info) Description 07/16/2017 8:30 AM CDT Office Visit [facility] Oncology and Hematology - [place] [address] [facility] [address] [address] Brock Gibbons MD [address] [facility] [address] [place] [address] Malignant neoplasm of sigmoid colon [...] Sign Reading Time Taken Comments Blood Pressure 111/81 07/16/2017 8:44 AM CDT Pulse 71 07/16/2017 8:44 AM CDT Temperature 37.1 ??C (98.7 ??F) 07/16/2017 8:44 AM CD T Respiratory Rate 16 07/16/2017 8:44 AM CDT Oxygen Saturation - - Inhaled Oxygen Concentration - - Weight 92.2 kg (203 lb 4.8 oz) 07/16/2017 8:44 A M CDT Height 185.4 cm (6' 1 ) 07/16/2017 8:44 AM CDT Body Mass Index 26.82 07/16/2017 8:44 AM CDT documented in this encounter Progress Notes * Brock Gibbons MD - 07/16/2017 9:15 AM CDT HEMATOLOGY / ONCOLOGY PROGRESS NOTE [...] the surgery. Interval History: Patient received cycle one of chemotherapy on July 02, 2017. He tolerated chemotherapy fairly well with [...] 0.7 WBC 7.7 hemoglobin 15.2 platelet 135,000. Assessment: Plan: Patient Active Problem List Diagnosis [...] undetectable microsatellite instability. Patient will receive cycle 2 of chemotherapy with FOLFOX regimen today. Hetolerated chemotherapy fairly well so far. I have reviewed the labs. Insomnia. I will prescribe Ambien. Chemotherapy-induced neutropenia prophylaxis. Patient will receive Neulasta. History of testicular cancer status post surgery and radiation therapy 2 years ago. Patient has been followed by Dr. Quang Farris. He is in remission. ? 07/16/2017 Brock Gibbons MD documented in this encounter Miscellaneous Notes * Addendum Note - Anitha Ferreira RN - 07/16/2017 9:35 AM CDTAddended by: ANITHA FERREIRA on: 07/16/2017 09:35 AM Modules accepted: Orders documented in this encounter Plan of Treatment Upcoming Encounters Date Type Department Care Team (Late st Contact Info) Description 11/24/2025 2:15 PM DENTAL DIRECTOR Office Visit [facility] Oncology and Hematology - [place] [address] [facility] [address] [place] [address] Brock Gibbons MD [address] [facility] [address] [place] [address] documented as of this encounter Results * (ABNORMAL) CBC WITH DIFFERENTIAL (07/30/2017) Blood Brock Gibbons MD HEMATOLOGY ORDERABLE S Performing Organization Address City/[facility]/ZIP Co de Phone Number EXTERNAL LAB * (ABNORMAL) BASIC METABOLIC PANEL (07/30/2017) Blood Brock Gibbons MD CHEMISTRY ORDERABLES Performing Organization Address City/[facility] Co de Phone Number EXTERNAL LAB documented in this encounter Visit Diagnoses Diagnosis Malignant neoplasm of sigmoid colon- Primary documented in this encounter Care Teams Rivet Machine Operator Relationship Specialty Start Date End Date Avinash Berg MD [address] [place] [phone] PCP - General Family Practice 06/13/17 documented as of this encounter
--- OUTSIDE RECORDS SUMMARY | 2024-11-23 10:35 | XMS_ITS | Encounter Summary ---
Author Organization [facility] Address [address] [place] [address] Care Team Providers Care Pulmonary Physician Name Role Phone Avinash Berg MD Primary Care Provider +1- [phone] Reason for Visit * Reason Onset Date Comments Results 09/24/2017 Encounter Details Date Type Department Care Team (Late Contact Info) Description 09/24/2017 Telephone [facility] Oncology and Hematology Andre [address] [facility] [address] [place] [address] Brock Gibbons MD [address] [facility] [address] [place] [address] Results Social History Tobacco Use [...] Telephone Encounter - Ondina Ferreira RN - 09/24/2017 11:20 AM CST CBC reviewed by Dr. Gibbons, plt ct 95k, ok for treatment today per Dr. Gibbons. Ondina Ferreira RN ONAL PROPERTY APPRAISER documented in this encounter Plan of Treatment Upcoming Encounters Date Type Department Care Team (Late Contact Info) Description 11/24/2025 2:15 PM PERSONAL PROPERTY APPRAISER Office Visit [facility] Oncology and Hematology - [place] [address] [facility] [address] [place] [address] Brock Gibbons MD [address] [facility] [address] [place] [address] documented as of this encounter Visit Diagnoses Not on filedocumented in this encounter Care Teams Pulmonary Physician Relationship Specialty Start Date End Date Avinash Berg MD [address] [facility] [address] [place] [phone] PCP - General Family Practice 06/13/17 documented as of this encounter
--- OUTSIDE RECORDS SUMMARY | 2024-11-23 10:35 | XMS_ITS | Encounter Summary ---
Author Organization [facility] Address [address] [place] [address] Care Team Providers Care Gill Net Stringer Name Role Phone Avinash Berg MD Primary Care Provider +1- [phone] Reason for Visit * Reason Onset Date Comments Erroneous encounter-disregard 10/08/2017 Encounter Details Date Type Department Care Team (Late Contact Info) Description 10/08/2017 Telephone [facility] Oncology and Hematology [place] [address] [place] [address] Brock Gibbons MD [address] [employer] [address] [place] [address] Erroneous encounter-disregard Social History Tobacco Use Types Packs/Day Years [...] (Late Contact Info) Description 11/24/2025 2:15 PM CREATIVE INTERN Office Visit [facility] Oncology and Hematology [place] [address] [place] [address] Brock Gibbons MD [address] [employer] [address] [place] [address] documented as of this encounter Visit Diagnoses Not on filedocumented in this encounter Care Teams Gill Net Stringer Relationship Specialty Start Date End Date Avinash Berg MD [address] [address] PCP - General Family Practice 06/13/17 documented as of this encounter
--- OUTSIDE RECORDS SUMMARY | 2024-11-23 10:35 | XMS_ITS | Encounter Summary ---
Author Organization [facility] Address [address] [place] [address] Care Team Providers Care Tool Polishing Machine Operator Name Role Phone Avinash Berg MD Primary Care Provider +1- [phone] Encounter Details Date Type Department Care Team (Late Contact Info) Description 09/10/2017 Orders Only [facility] Oncology [facility] Hematology [facility] [address] [place] [address] Ondina Ferreira RN Malignant neoplasm of colon, unspecified part [...] Contact Info) Description 11/24/2025 2:15 PM TILE LAYER HELPER Office Visit [facility] Oncology and [facility] [address] [place] [address] Brock Gibbons MD [address] [facility] [address] [place] [address] documented as of this encounter Procedures Procedure Name Priority Date/Time Associated Diagnosis Comments CBC WITH DIFFERENTIAL Stat 09/10/2017 Malignant neoplasm of colon, unspecified part of colon BASIC METABOLIC PANEL Routine 09/10/2017 Malignant neoplasm of colon, unspecified part of colon documented in this encounter Results * (ABNORMAL) CBC WITH DIFFERENTIAL (09/10/2017) Blood Brock Gibbons MD HEMATOLOGY ORDERABLE S Performing Organization Address City/[facility]/ZIP Co de Phone Number EXTERNAL LAB * (ABNORMAL) BASIC METABOLIC PANEL (09/10/2017) Blood Brock Gibbons MD CHEMISTRY ORDERABLES Performing Organization Address City/[facility] Co de Phone Number EXTERNAL LAB documented in this encounter Visit Diagnoses Diagnosis Malignant neoplasm of colon, unspecified part of colon documented in this encounter Care Teams Tool Polishing Machine Operator Relationship Specialty Start Date End Date Avinash Berg MD [address] [place] [phone] PCP - General Family Practice 06/13/17 documented as of this encounter
--- OUTSIDE RECORDS SUMMARY | 2024-11-23 10:35 | XMS_ITS | Encounter Summary ---
Author Organization [facility] Address [address] [place] [address] Care Team Providers Care Window Display Designer Name Role Phone Avinash Berg MD Primary Care Provider +1- [phone] Encounter Details Date Type Department Care Team (Late Contact Info) Description 08/13/2017 Orders Only [facility] Oncology and Hematology [facility] [address] [place] [address] Ondina Ferreira RN Malignant neoplasm [...] (Late Contact Info) Description 11/24/2025 2:15 PM GEOTECHNICAL LABORATORY TECHNICIAN Office Visit [facility] Oncology and [facility] [address] [place] [address] Brock Gibbons MD [address] [facility] [address] [place] [address] documented as of this encounter Procedures Procedure Name Priority Date/Time Associated Diagnosis Comments CBC WITH DIFFERENTIAL Routine 08/13/2017 Malignant neoplasm of sigmoid colon BASIC METABOLIC PANEL Routine 08/13/2017 Malignant neoplasm of sigmoid colon documented in this encounter Results * (ABNORMAL) CBC WITH DIFFERENTIAL (08/13/2017) Blood Brock Gibbons MD HEMATOLOGY ORDERABLE S EXTERNAL LAB * BASIC METABOLIC PANEL (08/13/2017) Blood Brock Gibbons MD CHEMISTRY ORDERABLES Performing Organization Address City/[facility] Co de Phone Number EXTERNAL LAB documented in this encounter Visit Diagnoses Diagnosis Malignant neoplasm of sigmoid colon documented in this encounter Care Teams Window Display Designer Relationship Specialty Start Date End Date Avinash Berg MD [address] [place] [phone] PCP - General Family Practice 06/13/17 documented as of this encounter
--- OUTSIDE RECORDS SUMMARY | 2024-11-23 10:35 | XMS_ITS | Encounter Summary ---
Author Organization [facility] Address [address] [place] [address] Care Team Providers Care Phone Representative Name Role Phone Avinash Berg MD Primary Care Provider +1- [phone] Reason for Visit * Reason Comments Follow Up Encounter Details Date Type Department Care Team (Late st Contact Info) Description 07/02/2017 9:45 AM CDT Office Visit [facility] Oncology and Hematology - [place] [address] [facility] [address] [address] Brock Gibbons MD [address] [facility] [address] [place] [address] Malignant neoplasm of sigmoid colon [...] Sign Reading Time Taken Comments Blood Pressure 132/88 07/02/2017 9:49 AM CDT Pulse 68 07/02/2017 9:49 AM CDT Temperature 36.8 ??C (98.3 ??F) 07/02/2017 9:49 AM CD T Respiratory Rate 16 07/02/2017 9:49 AM CDT Oxygen Saturation - - Inhaled Oxygen Concentration - - Weight 92.4 kg (203 lb 12.8 oz) 07/02/2017 9:49 AM CDT Height 185.4 cm (6' 1 ) 07/02/2017 9:49 AM CDT Body Mass Index 26.89 07/02/2017 9:49 AM CDT documented in this encounter Progress Notes * Brock Gibbons MD - 07/02/2017 11:39 AM CDT HEMATOLOGY / ONCOLOGY PROGRESS NOTE [...] recovering well from the surgery. Interval History: Port has been placed. No new complaints today. Review of system Constitutional: No fever; no night sweats; no anorexia; no weight loss; no fatique Respiratory: No shortness of breath; no pleuritic chest pain; no cough; no hemoptysis Cardiac: No cardiac-like chest pain; no palpitations; no orthopnea; no PND; no DISA GI: No abdominal pain; no nausea; no [...] 162,000 neutrophils 64% creatinine 0.8 potassium 3.9. @IMAGEIMP@ Assessment: Plan: Patient Active Problem List [...] for future relapse given his young age. Patient will start chemotherapy with FOLFOX regimen today. I have reviewed the labs. I will see him back in 2 weeks and then every 4 weeks. Chemotherapy-induced neutropenia prophylaxis. Patient will receive Neulasta. History of testicular cancer status post surgery and radiation therapy 2 years ago. Patient has been followed by Dr. Quang Farris. He is in remission. ? 07/02/2017 Brock Gibbons MD documented in this encounter Plan of Treatment Upcoming Encounters Date Type Department Care Team (Late st Contact Info) Description 11/24/2025 2:15 PM VENEER SAMPLE MAKER Office Visit [facility] Oncology and Hematology [facility] [address] [facility] [address] [place] [address] Brock Gibbons MD [address] [facility] [address] [place] [address] documented as of this encounter Results * (ABNORMAL) CBC WITH DIFFERENTIAL (07/16/2017) Blood Brock Gibbons MD HEMATOLOGY ORDERABLE S EXTERNAL LAB * (ABNORMAL) BASIC METABOLIC PANEL (07/16/2017) Blood Brock Gibbons MD CHEMISTRY ORDERABLES EXTERNAL LAB documented in this encounter Visit Diagnoses Diagnosis Malignant neoplasm of sigmoid colon- Primary documented in this encounter Care Teams Phone Representative Relationship Specialty Start Date End Date Avinash Berg MD [address] [phone] PCP - General Family Practice 06/13/17 documented as of this encounter
== END 2024-11-16 11:06 | disposition home or self-care (01) ==
PROVIDERS: PCP Family Medicine Adolescent Medicine; Visit Provider Internal Medicine Hematology & Oncology
DX: C18.9 Malignant neoplasm of colon, unspecified (principal)
CPT/HCPCS: 36415; 80053; 82378; 85025

== ENCOUNTER 2025-05-23 10:12 | Outpatient (CLI) | payer BC, SELFPAY ==
--- OUTSIDE RECORDS SUMMARY | 2025-05-23 10:18 | XMS_ITS | Clinical Summary ---
Author Organization [facility] Address [address] [facility] [place] [address] Care Team Providers Care Channel Turner Name Role Phone Avinash Berg MD Primary Care Provider +1- [phone] Allergies No known active allergies Medications pravastatin (PRAVACHOL) 20 mg tablet Take 20 mg by mouth late in the day. Active glimepiride (AMARYL) 1 mg tablet Take 1 mg by mouth daily with breakfast. Active multivitamin (DAILY-SOPHIA) tablet Take 1 Tablet by mouth daily. Active ONETOUCH DELICA LANCETS 30 gauge 8 Active ONETOUCH ULTRA2 Kit 8 Active ONETOUCH ULTRA BLUE TEST STRIP Strip 8 Active losartan (COZAAR) 50 mg tablet 8 Active metFORMIN (GLUCOPHAGE XR) 500 mg Extended Release 24 hour tablet Take 500 mg by mouth daily after supper. Pt takes 4 500mg tablets in evening per dr wheeler instruction 9 Active traZODone (DESYREL) 100 mg tablet 2 Active Active Problems Problem Noted Date Diagnosed Date Malignant neoplasm of sigmoid colon 06/18/2017 Encounters Date Type Department Care Team Description 04/26/2025 External Device Data STL ABSTRACTION Provider, Abstract 04/12/2025 External Device Data STL ABSTRACTION Provider, Abstract 03/31/2025 External Device Data STL ABSTRACTION Provider, Abstract 03/30/2025 External Device Data STL ABSTRACTION Provider, Abstract 03/29/2025 External Device Data STL ABSTRACTION Provider, Abstract 02/22/2025 External Device Data STL ABSTRACTION Provider, Abstract [...] at Not on file Legal Sex Male 3:02 PM CDT Gender Identity Not on file Sexual Orientation Not on file Last Filed Vital Signs Vital Sign Reading Time Taken Comments Blood Pressure 127/81 11/18/2024 1:02 PM TIMBER WATCHMAN Pulse 70 11/18/2024 1:02 PM TIMBER WATCHMAN Temperature 36.8 C (98.3 F) 11/18/2024 1:02 PM TIMBER WATCHMAN Respiratory Rate 17 11/18/2024 1:02 PM TIMBER WATCHMAN Oxygen Saturation 96% 11/18/2024 1:02 PM TIMBER WATCHMAN Inhaled Oxygen Concentration - - Weight 91.6 kg (202 lb) 11/18/2024 1:02 PM TIMBER WATCHMAN Height 185.4 cm (6' 1) 11/19/2021 2:09 PM TIMBER WATCHMAN Body Mass Index 26.65 11/19/2021 2:09 PM TIMBER WATCHMAN Plan of Treatment Upcoming Encounters Date Type Department Care Team (Late st Contact Info) Description 11/24/2025 2:15 PM TIMBER WATCHMAN Office Visit [facility] Oncology and Hematology [facility] [address] [facility] [address] [place] [address] Brock Gibbons MD [address] [facility] [address] [place] [address] Health Maintenance Due Date Last Done Comments DIABETES ANNUAL FOOT EXAM 1978 DIABETES ANNUAL RETINAL EXAM 1978 DIABETES HBA1C Q 6 MONTHS 1978 DIABETES MICROALBUMIN ANNUAL SCREEN 1978 LDL CHOLESTEROL ANNUAL 1978 DTAP/TDAP/TD VACCINES (1 - Tdap) 1979 ZOSTER VACCINE (2 of 2) 11/27/2022 10/02/2022 Preventative Visit- Commercial 11/10/2024 INFLUENZA VACCINE (#1) 2025 10/02/2022 RSV VACCINE (60+ or ) (1 - 1-dose 75+ series) 2035 Insurance [facility] BLUE PREFERRED Care Teams Channel Turner Relationship Specialty Start Date End Date Avinash Berg MD PCP - General Family Practice 06/13/17
--- OUTSIDE RECORDS SUMMARY | 2025-05-23 10:18 | XMS_ITS | Continuity of Care Document ---
Author Organization [facility] Address [address] [place] [address] [place] [address] Phone Care Team Providers Care Web Site Developer Name Role Phone Lexa GTZ FACS, Darwin [...] Copied on Encounter Office/outpat ient Visit, [facility], [address], [place], [place], [id number], [place] tel:[phone] SEC Danni Chan CORNEAL OPACITY NOS Oct-2 1 Lexa Granados. [address] [facility], [address], [place], [place], [id number], . tel:[phone] Referring Provider: Nelson Juarez OD, [address] [place] [address], [address]. tel:[phone] Office/outpat ient Visit, [facility], [address] [facility] [address], [place], [place], [id number], tel:[phone] [facility] CORNEAL ULCER NOS Sep- 1 Lexa Granados. [address] [facility], [address], [place], [place], [id number], [place]. tel:[phone] Referring Provider: Nelson Juarez OD, [address] [place] [address], [address]. tel:[phone] Family History Family Member Type Diagnosis Age At Onset Mother Problem (finding) diabetes melli tus in first degree relative Payers Payer name Insurance type Covered green party ID Authorsimia tiorly(s) [facility] CI [id number] Social History Type Description Quantity Date Captured Comments Alcohol Use Details Unknown Caffeine Use Details Unknown Tobacco Use Status No Information Smoking Status No Information Sex Male Chief Complaint And Reason For Visit No Information Reason For Referral Reason For Referral No [...] Friday with him. Pt will email Dr. Benz if unable to obtain medication. Pt understands to Not wear CTL's and to throw out case. Anticipate preliminary results to be available by FridaySent Urgently Related to CORNEAL ULCER NOS Assessments Type Assessment Date No Information Patient Care Teams Name Effective Dates (start - stop) Status Members No Information
--- OUTSIDE RECORDS SUMMARY | 2025-05-23 10:18 | XMS_ITS | Clinical Summary ---
Author Organization [facility] Address [address] [place] [address] Care Team Providers Care Marine Specialist Name Role Phone Avinash Berg MD Primary Care Provider +1- [phone] Allergies No known active allergies Medications losartan 50 MG tablet Take 50 mg by mouth daily. Active pravastatin 20 MG tablet Take 20 mg by mouth nightly at bedtime. Active metFORMIN 1000 MG tablet Take 500 mg by mouth 4 (four) times a day. Active multivitamin tablet Take 1 tablet by mouth. 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 Gender Identity Not on file Sexual Orientation Not on file Last Filed Vital Signs Vital Sign Reading Time Taken Comments Blood Pressure 131/87 05/24/2021 8:44 AM CDT Pulse 67 05/24/2021 8:44 AM CDT Temperature 36.5 C (97.7 F) 05/24/2021 8:34 AM CDT Respiratory Rate 18 05/24/2021 8:44 AM CDT [...] Td Vaccines ( 1 - Tdap) 1979 Pneumococcal Vaccine: 50+ Years (1 of 1 - PCV) 2010 Zoster Vaccines (1 of 2) 2010 COVID-19 Vaccine (3 - 2023-2 5 season) 2024 02/09/2021, 01/19/2021 Colorectal Cancer Screening Colonoscopy (10 Years) 05/24/2031 05/24/2021, 05/24/2021 RSV Immunization or 60+ Years (1 - 1-dose 75+ series) 2035 Meningococcal B Vaccine Aged Out No l onger eligible based on patient's age to complete this topic Meningococcal Vaccine Aged Out No josse nagi [...] Results * Colonoscopy (05/24/2021 8:08 AM CDT) Krish Tamayo MD - 05/24/2021 8:08 AM CDT Krish Bravo MD 05/24/2021 8:35 AM KRISH BRAVO MD, FACG, FACP COLONOSCOPY [...] the left lateral decubitus position, the Olympus [id number] colonoscope was introduced into the rectum and [...] Most Recently Relevant to Health Maintenance Insurance Care Teams Marine Specialist Relationship Specialty Start Date End Date Avinash Berg MD [address] [address] PCP - General FAMILY PRACTICE 05/18/21
[2025-05-23 10:40] LABS: Hematocrit 44.0 % (42.0-52.0); Hemoglobin 15.0 g/dL (14.0-18.0); Immature Granulocyte Percent A 0.2 % (0-0.5); Lymphocytes Absolute Auto 1.33 K/mm3 (0.9-3.2); Mean Corpuscular HGB Conc 34.1 g/dl (32-36); Mean Corpuscular Hemoglobin 30.4 pg (26-34); Mean Corpuscular Volume 89.1 fl (80-100); Nucleated Red Blood Cells Absolute Auto 0.000 K/mm3 (0.0-0.012); Nucleated Red Blood Cells Perc 0.0 % (0.0-0.2); Platelet Count Result 167 k/mm3 (150-375); Red Blood Count 4.94 M/mm3 (4.6-6.20); White Blood Count 5.4 K/mm3 (4.5-10.0)
[2025-05-23 12:46] LABS: Hemoglobin A1C 6.5 % (<5.7)
[2025-05-23 12:49] LABS: Alanine Aminotransferase 20 U/L (6-50); Albumin Level 4.4 g/dL (3.5-5.1); Alkaline Phosphatase 62 U/L (38-126); Anion Gap 8 mmol/L (4-12); Aspartate Amino Transferase 54 U/L (17-59); Bilirubin,Total 0.8 mg/dL (0.2-1.3); Blood Urea Nitrogen 20 mg/dL (9-20); Calcium 9.3 mg/dL (8.4-10.2); Carbon Dioxide 28 mmol/L (22-30); Chloride 103 mmol/L (98-107); Cholesterol 131 mg/dL (0-200); Estimated Glomerular Filt Rate > 60; Glucose 122 mg/dL (65-110); HDL Direct 49 mg/dL; Potassium 4.9 mmol/L (3.4-5.0); Sodium 139 mmol/L (137-145); Total Protein 7.5 g/dL (6.3-8.2); Triglycerides 60 mg/dL (<150)
[2025-05-23 13:18] LABS: Carcinoembryonic Antigen 4.2 ng/mL (0.0-3.0)
[2025-05-23 13:23] LABS: Prostate Specific Antigen 0.8 ng/mL (< OR = 4.0)
== END 2025-05-23 10:13 | disposition home or self-care (01) ==
LOC: ANHLAB 10:13
PROVIDERS: PCP Family Medicine Adolescent Medicine; Visit Provider Internal Medicine Hematology & Oncology
DX: C18.9 Malignant neoplasm of colon, unspecified (principal); I10 Essential (primary) hypertension; E78.00 Pure hypercholesterolemia, unspecified; E11.3293 Type 2 diabetes mellitus with mild nonproliferative diabetic retinopathy without macular edema, bilateral; Z12.5 Encounter for screening for malignant neoplasm of prostate
CPT/HCPCS: 36415; 80053; 80061; 82378; 83036; 84153; 85025; G0103